=== PATIENT | male | born 1945 | race Caucasian/White ===

== ENCOUNTER 2017-06-05 16:12 | Emergency (ER) | payer OTHER ==
[2017-06-05 16:16] VITALS: BMI 23.7
--- NOTE | 2017-06-05 16:30 | DR.DIZZY ---
HPI - Time seen Time seen: 16:30 - PCP Primary Care Physician: CRISTOBAL - HPI Comment HPI Comment: Was fine 5 days ago per spouse, but 4 days ago pt woke up with dizziness, Pt with unsteady gait, confusion, dizziness. states pt confused , seems to understand commands but cannot perform. Pt denies somatic complaints. Since onset of symptoms pt will 'get a little better' and thought symptoms were resolving then they would worsen again. called PCP and was told to come to ER. Pt has had TIA previously per . - Complaint Chief Complaint:: SPOUSE STATES SUNDAY MORNING, PT. WOKE UP AND WAS DISORIENTED MORE THAN USUAL AND WAS UNABLE TO GET UP FROM THE BED. SHE ALSO STATES PT. HAS BEEN DIZZY AND HAS AN UNSTEADY GAIT. SHE SAYS "HE IS ABLE TO COMPHREND WHAT YOU SAY, BUT CAN'T DO IT." - Nurses Notes Reviewed Nurses Notes Review: Yes - Source History Provided: Patient - Mode of Arrival Mode of Arrival: Wheelchair - Timing Onset of Chief Complaint: 06/02/17 Came on: On Awakening Onset of Symptoms Start Date: 06/02/17 - Duration Duration: Since Onset How lon Duration: Days - Context Does pt take pot. toxic medication?: No History of: TIA (also hx dementia per ) Stroke Symptoms: Dizziness - Modifying factors Worsens: Nothing - Associated signs and symptoms Associated Signs and Symptoms: Other (dizziness, unsteady gait) PMH - PMH Past Medical History: Yes Past Medical History: Alzheimers, Arthritis, Dementia, Depression, GERD Past Medical History Comment: TIA Past Surgical History: Yes Surgical History: Abdominal Surgery, Cholecystectomy, Ortho Surgery, Other - Family History History of Family Medical Conditions: Yes Family Medical History: Cancer, Hypertension - Social History Does patient currently use any type of tobacco product: No Have you used tobacco products in the last 12 months: No Type of Tobacco Use: None Does any household member use tobacco: No Alcohol Use: None Do you use any recreational Drugs:: No Lives With: Spouse Lives Where: Home - infectious screening In the last 2 months have you had wt loss of >10#?: NO Have you had fever, night sweats or hemotysis?: No Have you traveled outside the country in the last 6 months?: No Isolation: Standard ROS - Review of Systems Eyes: No Symptoms Reported ENTM: No Symptoms Reported Respiratoy: No Symptoms Reported Cardiovascular: No Symptoms Reported Genitourinary: No Symptoms Reported Neurological: Dizziness, Problems Walking. negative: Headache Musculoskeletal: No Symptoms Reported Integumentary: No Symptoms Reported Hematologic/Lymphatic: No Symptoms Reported Endocrine: No Symptoms Reported Psychiatric: No Symptoms Reported All Other Systems: Reviewed and Negative Unable to Obtain Due To: Dementia ( gives much of hx) PE - Vital Signs Vitals: Temperature 103.1 F Pulse Rate [Left Brachial] 95 Pulse Rate [Standing] 104 Pulse Rate [Sitting] 96 Pulse Rate [Lying] 95 Pulse Rate 108 Respiratory Rate 16 Blood Pressure [Left Arm] 144/67 Blood Pressure [Right Arm] 153/73 Blood Pressure [Standing] 143/69 Blood Pressure [Sitting] 150/77 Blood Pressure [Lying] 138/66 Blood Pressure 138/71 O2 Sat by Pulse Oximetry 95 - General General Appearance: Alert, In No Apparent Distress, Other (not ill appearing) - Head Head Exam: Normal Inspection, Atraumatic, Normocephalic - Eyes Eye exam: Normal Appearance, PERRL, EOMI Pupils: Regular, Round: Bilateral - ENT ENT Exam: Normal Exam, Normal Oropharynx - Neck Neck Exam: Normal Inspection, Full ROM, Trachea Midline. negative: Tenderness, Meningismus, Lymphadenopathy, Thyromegaly - Chest Chest Inspection: Symmetric Chest Wall Rise - Respiratory Respiratory Exam: Normal Lung Sounds Bilat Respiratory Exam: Bilateral Clear to Auscultation - Cardiovascular Cardiovascular Exam: Regular Rate, Normal Rhythm, Normal Heart Sounds - Abdominal Exam Abdominal Exam: Normal Inspection, Normal Bowel Sounds, Soft. negative: Distention, Tenderness - Rectal Rectal Exam: Deferred - Extremeties Extremities Exam: Normal Inspection, Full ROM, Normal Capillary Refill. negative: Edema - Neurologic Neurological Exam: Alert, Oriented X3, Other (gait not tested due to unsteadiness) Patient Oriented To: Person, Place, Time Speech: Fluid Speech Cranial Nerve Exam: EOM Function (II, III, IV, ): Normal (pt slow to respond to commands, sometimes doesn't respond at all), Facial Sensation (V): Normal, Facial Palsy (VII): Normal, Gag reflex (XI): Normal, Tongue Deviation: Normal Motor Strength - LUE: 5/5 Motor Strength - RUE: 5/5 Motor Strength - LLE: 5/5 - Psychiatric Psychiatric Exam: Normal Affect, Normal Mood - Skin Skin Exam: Warm, Dry, Intact Course - Consultation Called: 16:45 Consultation Comments: Dr Burt will come in to see pt ROR - Labs Reviewed Laboratory Results Reviewed?: Yes (cardiacs normal, mild hyponatremia, hypokalemia, glucose 177. Lactate 2.4) Result Diagrams: 06/05/17 16:53 06/05/17 16:53 Laboratory: WBC 6.8 X10^3/uL (3.6-10.0) 06/05/17 16:53 RBC 4.58 X10^6/uL (4.7-6.0) L 06/05/17 16:53 Hgb 14.0 g/dL (13.5-18.0) 06/05/17 16:53 Hct 40.3 % (42.0-54.0) L 06/05/17 16:53 MCV 87.9 fL (80.0-100.0) 06/05/17 16:53 MCH 30.6 pg (27.0-34.0) 06/05/17 16:53 MCHC 34.8 g/dL (33.0-35.0) 06/05/17 16:53 RDW 13.7 % (11.6-16.5) 06/05/17 16:53 Plt Count 195 X10^3/uL (150.0-450.0) 06/05/17 16:53 MPV 7.5 fL (7.4-11.0) 06/05/17 16:53 Neut % (Auto) 86.3 % (42.0-75.0) H 06/05/17 16:53 Lymph % (Auto) 4.0 % (21.0-51.0) L 06/05/17 16:53 [place] % (Auto) 9.3 % (0.0-13.0) 06/05/17 16:53 Eos % (Auto) 0.1 % (0.9-2.9) L 06/05/17 16:53 Baso % (Auto) 0.3 % (0.2-1.0) 06/05/17 16:53 Neut # (Auto) 5.9 x10^3/uL (2.2-4.8) H 06/05/17 16:53 Lymph # (Auto) 0.3 X10^3/uL (1.3-2.9) L 06/05/17 16:53 [place] # (Auto) 0.6 x10^3/uL (0.3-0.8) 06/05/17 16:53 Eos # (Auto) 0.0 x10^3/uL (0.0-0.2) 06/05/17 16:53 Baso # (Auto) 0.0 X10^3/uL (0.0-0.1) 06/05/17 16:53 Absolute Nucleated RBC 0.0 /100WBC 06/05/17 16:53 Sodium 130 mmol/L (136-145) L 06/05/17 16:53 Corrected Sodium 132 mmol/L (136-145) L 06/05/17 16:53 Potassium 3.2 mmol/L (3.5-5.1) L 06/05/17 16:53 Chloride 93 mmol/L (98-107) L 06/05/17 16:53 Carbon Dioxide 25.8 mmol/L (21-32) 06/05/17 16:53 BUN 13 mg/dL (7-18) 06/05/17 16:53 Creatinine 1.35 mg/dL (0.70-1.30) H 06/05/17 16:53 Est GFR (MDRD) Af Amer > 60 (>60) 06/05/17 16:53 Est GFR (MDRD) Non-Af 55 (>60) L 06/05/17 16:53 Glucose 177 mg/dL (65-99) H 06/05/17 16:53 Lactic Acid 2.4 mmol/L (0.4-2.0) H 06/05/17 16:53 Calcium 8.5 mg/dL (8.5-10.1) 06/05/17 16:53 Corrected Calcium TNP 06/05/17 16:53 Magnesium 1.9 mg/dL (1.7-2.9) 06/05/17 16:53 Total Bilirubin 0.80 mg/dL (0.2-1.0) 06/05/17 16:53 AST 23 Units/L (15-37) 06/05/17 16:53 ALT 20 Units/L (12-78) 06/05/17 16:53 Alkaline Phosphatase 94 Units/L (46-116) 06/05/17 16:53 Ammonia < 10 umol/L (11-32) L 06/05/17 16:53 Creatine Kinase 86 Units/L (39-308) 06/05/17 16:53 CK-MB (CK-2) < 1.0 ng/mL (0-4.0) 06/05/17 16:53 CK/CKMB % Calc 1.2 % (<4) 06/05/17 16:53 Troponin I < 0.02 ng/mL (0-1.5) 06/05/17 16:53 Total Protein 7.7 g/dL (6.4-8.2) 06/05/17 16:53 Albumin 3.5 g/dL (3.4-5.0) 06/05/17 16:53 Globulin 4.2 g/dL (2.5-4.5) 06/05/17 16:53 Albumin/Globulin Ratio 0.8 Ratio (1.1-2.1) L 06/05/17 16:53 Acetone, Semi-Quant Negative (NEGATIVE) 06/05/17 16:53 - Other Results Comments: Lactate high at 2.4 but normal WBC at 6.8. NH3 pending. Acetone neg. UA pending(no sample) at this time. BCx drawn, pending. - XRAY XRAY Interpreted by: Radiologist XRAY Findings: CT head nothing acute - Diagnosis Discharge Problem: Weakness - Discharge Plan Disposition: XFER SHT-TRM HOSP Condition: Stable - Follow ups/Referrals Follow ups/Referrals: Elier Medina [Primary Care Provider] - 3 days - Instructions Additional Notes - Additional Notes Additional Notes: After his exam Dr Burt concerned re: indolent infection as etiology of pt's generalized psychomotor slowing. He suggests transfer to [facility] so that pt can get neurology services inpatient as well as MRI. He said LP could be done in [facility]. Pt's temp normal in triage, but spiked to 103.1 while in ER. Toradol and tylenol given. Spoke with Dr Cooley([facility] ) and reviewed presentation and workup; he accepts pt in transfer to ER there, okay to hang Zosyn prior to transfer there.
--- NOTE | 2017-06-05 16:59 | CT ---
HEAD CT WITHOUT IV CONTRAST CLINICAL INDICATION: Disorientation TECHNIQUE: Axial CT images from skull base to vertex without IV contrast.Dose reduction techniques in cluding Automated Exposure Control (AEC) and adjustment of mA and kV were utlized. COMPARISON: None FINDINGS: There is no abnormal brain parenchymal density. There is no evidence of acute infarction, intracrani al hemorrhage, mass or mass effect, or abnormal extra-axial collection. The density of the larger dur al venous sinuses is normal. The ventricles are normal in size, shape and position. The skull base an d calvarium are normal. The included paranasal sinuses and mastoid air cells are predominantly clear. IMPRESSION: 1. No acute intracranial abnormality. Reported By:
[2017-06-05 17:13] LABS: BASOPHILS % (AUTO) 0.3 % (0.2-1.0); EOSINOPHILS % (AUTO) 0.1 % (0.9-2.9); HEMATOCRIT 40.3 % (42.0-54.0); LYMPHOCYTES # (AUTO) 0.3 X10^3/uL (1.3-2.9); MEAN CORPUSCULAR HEMOGLOBIN 30.6 pg (27.0-34.0); MEAN CORPUSCULAR HGB CONC 34.8 g/dL (33.0-35.0); MEAN CORPUSCULAR VOLUME 87.9 fL (80.0-100.0); MEAN PLATELET VOLUME 7.5 fL (7.4-11.0); MONOCYTES # (AUTO) 0.6 x10^3/uL (0.3-0.8); MONOCYTES % (AUTO) 9.3 % (0.0-13.0); NEUTROPHILS # (AUTO) 5.9 x10^3/uL (2.2-4.8); NEUTROPHILS % (AUTO) 86.3 % (42.0-75.0); PLATELET COUNT 195 X10^3/uL (150.0-450.0); RED BLOOD COUNT 4.58 X10^6/uL (4.7-6.0); RED CELL DISTRIBUTION WIDTH 13.7 % (11.6-16.5); WHITE BLOOD COUNT 6.8 X10^3/uL (3.6-10.0)
[2017-06-05 17:19] LABS: SERUM ACETONE NEGATIVE (NEGATIVE)
[2017-06-05 17:27] LABS: BLOOD UREA NITROGEN 13 mg/dL (7-18); CALCIUM 8.5 mg/dL (8.5-10.1); CARBON DIOXIDE 25.8 mmol/L (21-32); CHLORIDE 93 mmol/L (98-107); COR NA(FOR HYPERGLY) 132 mmol/L (136-145); CREATININE 1.35 mg/dL (0.70-1.30); LACTIC ACID 2.4 mmol/L (0.4-2.0); SODIUM 130 mmol/L (136-145); TROPONIN I < 0.02 ng/mL (0-1.5); eGFR BLACK RACES > 60 (>60); eGFR NON BLACK RACES 55 (>60)
[2017-06-05 17:31] LABS: ALANINE AMINOTRANSFERASE 20 Units/L (12-78); ALBUMIN 3.5 g/dL (3.4-5.0); ALKALINE PHOSPHATASE 94 Units/L (46-116); ASPARTATE AMINO TRANSFERASE 23 Units/L (15-37); CKMB % 1.2 % (<4); CREATINE KINASE 86 Units/L (39-308); CREATINE KINASE MB < 1.0 ng/mL (0-4.0); MAGNESIUM 1.9 mg/dL (1.7-2.9); TOTAL PROTEIN 7.7 g/dL (6.4-8.2)
[2017-06-05] MEDS ORDERED: ZOSYN VIAL 3.375 GM 3.375 GM in NS 100 ML IV + SPIKE MINIBAG* 100 ML IV ONE (17:59)
[2017-06-05] MEDS ORDERED: NS 1000 ML 1,000 ML ONE (18:09)
[2017-06-05] MEDS ORDERED: TORADOL 15 MG VIAL IVP ONE (18:09)
[2017-06-05] MEDS ORDERED: TYLENOL 500 MG TAB EXTRA STRENGTH PO ONE ×2 (18:09→18:16)
[2017-06-05] MEDS ORDERED: ZOSYN VIAL 3.375 GM IV ONE (18:10)
[2017-06-05] MEDS ORDERED: NS 100 ML IV + SPIKE MINIBAG* 100 ML IV ONE (18:10)
[2017-06-05] MEDS ORDERED: TORADOL 15 MG VIAL ONE (18:12)
[2017-06-05 18:33] VITALS: BP 137/72
--- NOTE | 2017-06-05 18:43 | DR.CONSULT ---
Consult - Consultation for Day of: Date: 06/05/17 - Chief Complaint Chief Complaint: Lethargy, psychomotor slowing/altered mental status. - Allergies Allergies/Adverse Reactions: Allergies Allergy/AdvReac Type Severity Reaction Status Date / Time morphine Allergy Verified 06/05/17 16:17 - History of Present Illness History of Present Illness: 71-year-old male patient was seen and examined. Patient was brought by his with complaints of changes in his mental status , behavior. According to the patient does listen but she does not do what he is asked to do. He has markedly slowed down. This change in his behavior occurred when he woke up in the morning 4 days ago. Since then there has been no improvement in his condition. According to the when he woke up in the morning he was very slow to react. His face was flushed. He has been shivering since then. Patient has history of diabetes. He has been on metformin for several years. Patient is awake alert he is participating in verbal communication but his responses are delayed. He was unable to tell the year. He thought that it is 2016. He knows that he is in hospital in [place]. He was unable to tell the month. He couldn't tell the day of the week. He has marked bradyphrenia . He is not voicing any complaints. NEUROLOGICAL EXAMINATION : . Cognitive status: As described above. Speech: Speech is fluent, naming is intact, comprehension is also intact. Patient has no paraphasic errors. Cranial nerve examination : Second cranial nerve: Visual hannon are intact on confrontation. Third fourth and sixth cranial nerve: Extraocular movements are full without any nystagmus. Pupils are 3.5 mm in size around equal and reactive to light. Fifth cranial nerve: Facial sensations are intact bilaterally. Seventh cranial nerve: Facial symmetry is intact bilaterally. Eighth cranial nerve: Hearing is intact bilaterally. Ninth and 10th cranial nerve: Palate is symmetrical bilaterally. 11th cranial nerve: Shoulder shrug is equal and symmetrical bilaterally. 12 cranial nerve: Tongue is in midline. Coordination: Finger to nose rapid alternating movements are intact. Gait: was not tested. Motor system examination: Tone is normal. Strength is 5 over 5 proximally as well as distally in upper and lower extremities. Deep tendon reflexes are +1 equal and symmetrical in upper and lower extremities. Plantars are flexor bilaterally. Sensory system examination: Patient has equal and symmetrical touch, temperature , pinprick sensation distally and proximally in upper and lower extremities. - Past Medical History Past Medical History: Alzheimers, Arthritis, Dementia, Depression, GERD - Past Surgical History Surgical History: Abdominal Surgery, Cholecystectomy, Ortho Surgery, Other - Family History Family Medical History: Cancer, Hypertension - Social History Does patient currently use any type of tobacco product: No Have you used tobacco products in the last 12 months: No Type of Tobacco Use: None Does any household member use tobacco: No Alcohol Use: None - Medications Home Medications: Metformin HCl [GLUCOPHAGE 500 MG *] 500 mg PO BID 06/05/17 [History Confirmed ] Prednisone [PREDNISONE TAB 5 MG *] 5 mg PO DAILY 06/05/17 [History Confirmed ] - Review of Systems Constitutional: See HPI Eyes: No Symptoms Reported ENT: No Symptoms Reported Respiratory: No Symptoms Reported Cardiovascular: No Symptoms Reported Gastrointestinal: No Symptoms Reported Genitourinary: No Symptoms Reported Musculoskeletal: No Symptoms Reported Skin: No Symptoms Reported Neurological: See HPI - Physical Exam Vital Signs: Temperature 103.1 F Pulse Rate [Left Brachial] 95 Pulse Rate [Standing] 104 Pulse Rate [Sitting] 96 Pulse Rate [Lying] 95 Pulse Rate 108 Respiratory Rate 16 Blood Pressure [Left Arm] 144/67 Blood Pressure [Right Arm] 153/73 Blood Pressure [Standing] 143/69 Blood Pressure [Sitting] 150/77 Blood Pressure [Lying] 138/66 Blood Pressure 138/71 O2 Sat by Pulse Oximetry 95 Oriented: Normal Eyes: Normal Ear: Normal Nose: Normal Throat: Normal Respiratory: Clear Throughout Cardiovascular: Normal : Normal Auscultation: Bowel Sounds: Normal Palpation: Normal Tenderness: Normal Skin: Normal Musculoskeletal: Normal Psychiatric: Normal Mood Description: Calm Affect: Flat Speech Pattern: Clear - Plan Plan: 71-year-old male patient was seen and examined because of altered mental status, lethargy, marked psychomotor slowing. On examination patient has delayed responses. He is not very much oriented in details of time although he knows that he is in hospital in [place]. Patient's comprehension is intact, naming is intact. Speech is fluent. His cranial nerve examination shows no abnormality. Patient has no cerebellar signs. He has no sensorimotor deficits. According to the patient was normal last week before the onset of these symptoms. His symptoms occurred 4 day ago when he woke up one morning. His face was flushed. He has been shivering since then. He ate oysters night before the onset of symptoms. Patient's changes in his mental status need to be seen in terms of metabolic changes in the background of possible infection. He needs a detailed metabolic/infectious workup, neuroimaging studies with MRI, EEG and multi specialty consultations.
[2017-06-05] MEDS ORDERED: NS 1000 ML 1,000 ML IV SCH (19:00)
== END 2017-06-05 18:51 | disposition short-term general hospital (02) ==
LOC: ER 16:20
DX: R53.1 Weakness (principal); R42 Dizziness and giddiness; Z86.73 Personal history of transient ischemic attack (TIA), and cerebral infarction without residual deficits
CPT/HCPCS: 36415; 70450; 80053; 82009; 82140; 82550; 82553; 83605; 83735; 84484; 85025; 87040; 96365; 96374; 96375; 99285; A4222; J2543

== ENCOUNTER 2023-08-02 17:33 | Inpatient (IN) ==
--- NOTE | 2023-08-02 17:53 | EKG ---
Test Reason : dyspnea Blood Pressure : */* mmHG Vent. Rate : 105 BPM Atrial Rate : 105 BPM P-R Int : 178 ms QRS Dur : 86 ms QT Int : 308 ms P-R-T Axes : 6 -10 4 degrees QTc Int : 407 ms Sinus tachycardia Minimal voltage criteria for LVH, may be normal variant ( R in aVL ) Borderline ECG No previous ECGs available Confirmed by Vance Chambers MD ([id number]) on 08/03/2023 8:55:53 AM Referred By: Confirmed By: Vance Chambers MD
[2023-08-02] MEDS: NS 500 ML IV 500 ML IV SCH (17:57)
[2023-08-02] MEDS: DECADRON INJ IVP ONE (17:57)
[2023-08-02] MEDS: DUONEB 0.5 MG/3 MG (3 mL) NEB ONE ×2 (17:59→22:22)
[2023-08-02 18:05] VITALS: BMI 22.8
[2023-08-02 18:06] LABS: EOSINOPHILS # (AUTO) 0.3 x10^3/uL (0.0-0.2); HEMOGLOBIN 12.8 g/dL (13.5-18.0); RED CELL DISTRIBUTION WIDTH 13.8 % (11.6-16.5)
[2023-08-02 18:11] LABS: BASOPHILS # (AUTO) 0.1 X10^3/uL (0.0-0.1); BASOPHILS % (AUTO) 0.9 % (0.2-1.0); HEMATOCRIT 38.5 % (42.0-54.0); LYMPHOCYTES # (AUTO) 1.7 X10^3/uL (1.3-2.9); LYMPHOCYTES % (AUTO) 11.8 % (21.0-51.0); MEAN CORPUSCULAR HEMOGLOBIN 30.2 pg (27.0-34.0); MEAN CORPUSCULAR HGB CONC 33.4 g/dL (33.0-35.0); MEAN CORPUSCULAR VOLUME 90.6 fL (80.0-100.0); MEAN PLATELET VOLUME 8.8 fL (7.4-11.0); MONOCYTES # (AUTO) 0.9 x10^3/uL (0.3-0.8); MONOCYTES % (AUTO) 6.3 % (0.0-13.0); NEUTROPHILS # (AUTO) 11.4 x10^3/uL (2.2-4.8); PLATELET COUNT 330 X10^3/uL (150.0-450.0); RED BLOOD COUNT 4.24 X10^6/uL (4.7-6.0)
[2023-08-02] MEDS: ATIVAN INJ 2 MG VIAL IVP ONE (18:17)
--- NOTE | 2023-08-02 18:18 | DR.SOBA ---
HPI Time Seen Time Seen by Provider: 08/02/23 17:44 Complaints Chief Complaint Doctors Comments: 77-year-old male presents with coughing and shortness of breath. Has been coughing over the past week, steadily getting worse. Cough dry, not very productive. Shortness of breath with cough, difficulty stopping the cough. Having generalized weakness. No reported fevers, chills, sinus congestion, vomiting or diarrhea. No bowel or bladder issues. COVID-19 Coronavirus risk:travel/contact w/high risk person: No Has patient experienced Coronavirus symptoms: No Reviewed Nurses Notes Reviewed: Yes Source History Provided: Patient PMH PMH Past Medical History: Alzheimers, Arthritis, Dementia, Depression and GERD Past Surgical History: Yes Surgical History: Abdominal Surgery, Cholecystectomy, Ortho Surgery and Other Family History Family Medical History: Cancer and Hypertension Social History Do you use any recreational Drugs:: No Travel Risk Coronavirus risk:travel/contact w/high risk person: No Has patient experienced Coronavirus symptoms: No PE Vital Signs Vitals: Vital Signs Temperature 99.1 F Pulse Rate 99 Pulse Rate 102 Pulse Rate 103 Pulse Rate 102 Pulse Rate 114 Pulse Rate 114 Pulse Rate 100 Pulse Rate 105 Pulse Rate 107 Pulse Rate 106 Pulse Rate 105 Pulse Rate 106 Pulse Rate 106 Pulse Rate 105 Respiratory Rate 24 Blood Pressure 162/72 Blood Pressure 187/89 Blood Pressure 196/85 Blood Pressure 163/82 Blood Pressure 216/100 O2 Sat by Pulse Oximetry 100 O2 Sat by Pulse Oximetry 99 O2 Sat by Pulse Oximetry 100 O2 Sat by Pulse Oximetry 98 O2 Sat by Pulse Oximetry 89 O2 Sat by Pulse Oximetry 87 O2 Sat by Pulse Oximetry 98 O2 Sat by Pulse Oximetry 94 O2 Sat by Pulse Oximetry 93 O2 Sat by Pulse Oximetry 93 O2 Sat by Pulse Oximetry 92 O2 Sat by Pulse Oximetry 90 O2 Sat by Pulse Oximetry 89 O2 Sat by Pulse Oximetry 80 COURSE Treatment Treatment: 77-year-old male presents with respiratory distress. Has a frequent cough. Feeling short of breath while coughing. Difficulty giving a good history due to his cough. Been ill the past week with cough, steadily worsening.. Clinical exam shows rales at the right greater than left base. Concerning for CHF/versus pneumonia. No obvious peripheral edema or JVD evident.. Workup initiated. Patient given DuoNeb breathing treatment, IV Decadron, started IV fluids as a cautious rate due to the possibility of CHF. Patient appearring anxious, given IV Ativan to help relax him. Chest x-ray - quality film, rotated, does have increased markings bilaterally consistent with probable pneumonia, possible pulmonary vascular congestion as well. Patient was given dose of IV Lasix, as well as Rocephin. Placed on 50% Venti for the oxygen. Labs show elevated white count 19.6, lactic acid up at 2.9. BP eleva meche, slightly tachy. Fluids opened to give hydration. Repeat lactic better, 1.7. Will repeat a chest x-ray after our treatment, try to get a better film. Appears more likely pneumonia with degree of CHF. Recommend admission. Dr. Medina is of the patient, patient presented to Dr. Tellez, accepts the admission. Repeat x-ray more consistent with bilateral pneumonia, possible small pleural effusions. ROR Labs Reviewed Laboratory Results Reviewed?: Yes 08/02/23 17:50 08/02/23 17:50 Laboratory: WBC 17.0 X10^3/uL (3.6-10.0) H 08/02/23 17:50 RBC 4.24 X10^6/uL (4.7-6.0) L 08/02/23 17:50 Hgb 12.8 g/dL (13.5-18.0) L 08/02/23 17:50 Hct 38.5 % (42.0-54.0) L 08/02/23 17:50 MCV 90.6 fL (80.0-100.0) 08/02/23 17:50 MCH 30.2 pg (27.0-34.0) 08/02/23 17:50 MCHC 33.4 g/dL (33.0-35.0) 08/02/23 17:50 RDW 13.8 % (11.6-16.5) 08/02/23 17:50 Plt Count 330 X10^3/uL (150.0-450.0) 08/02/23 17:50 Plt Count Comment Adequate (ADEQUATE) 08/02/23 17:50 MPV 8.8 fL (7.4-11.0) 08/02/23 17:50 Neut % (Auto) 79.0 % (42.0-75.0) H 08/02/23 17:50 Lymph % (Auto) 11.8 % (21.0-51.0) L 08/02/23 17:50 [place] % (Auto) 6.3 % (0.0-13.0) 08/02/23 17:50 Eos % (Auto) 2.0 % (0.9-2.9) 08/02/23 17:50 Baso % (Auto) 0.9 % (0.2-1.0) 08/02/23 17:50 Neut # (Auto) 11.4 x10^3/uL (2.2-4.8) H 08/02/23 17:50 Lymph # (Auto) 1.7 X10^3/uL (1.3-2.9) 08/02/23 17:50 [place] # (Auto) 0.9 x10^3/uL (0.3-0.8) H 08/02/23 17:50 Eos # (Auto) 0.3 x10^3/uL (0.0-0.2) H 08/02/23 17:50 Baso # (Auto) 0.1 X10^3/uL (0.0-0.1) 08/02/23 17:50 Absolute Nucleated RBC 0.4 /100WBC 08/02/23 17:50 Plt Clumps, EDTA Rare 08/02/23 17:50 Plt Morphology Comment Normal (NORMAL) 08/02/23 17:50 RBC Morphology Normal (NORMAL) 08/02/23 17:50 Sodium 140 mmol/L (136-145) 08/02/23 17:50 Corrected Sodium 141 mmol/L (136-145) 08/02/23 17:50 Potassium 3.9 mmol/L (3.5-5.1) 08/02/23 17:50 Chloride 103 mmol/L (98-107) 08/02/23 17:50 Carbon Dioxide 27.3 mmol/L (21-32) 08/02/23 17:50 BUN 7 mg/dL (7-18) 08/02/23 17:50 Creatinine 1.15 mg/dL (0.70-1.30) 08/02/23 17:50 Est GFR (MDRD) Af Amer > 60 (>60) 08/02/23 17:50 Est GFR (MDRD) Non-Af > 60 (>60) 08/02/23 17:50 Glucose 148 mg/dL (65-99) H 08/02/23 17:50 Lactic Acid 1.4 mmol/L (0.4-2.0) 08/02/23 19:28 Calcium 9.3 mg/dL (8.5-10.1) 08/02/23 17:50 Corrected Calcium 10.0 mg/dL (8.5-10.1) 08/02/23 17:50 Total Bilirubin 0.70 mg/dL (0.2-1.0) 08/02/23 17:50 AST 38 Units/L (15-37) H 08/02/23 17:50 ALT 21 Units/L (12-78) 08/02/23 17:50 Alkaline Phosphatase 83 Units/L (46-116) 08/02/23 17:50 Creatine Kinase 176 Units/L (39-308) 08/02/23 17:50 Troponin I High Sens 8.8 ng/L (4.0-60.0) 08/02/23 17:50 B-Natriuretic Peptide 136 pg/mL (0-79) H 08/02/23 17:50 Total Protein 7.8 g/dL (6.4-8.2) 08/02/23 17:50 Albumin 3.1 g/dL (3.4-5.0) L 08/02/23 17:50 Globulin 4.7 g/dL (2.5-4.5) H 08/02/23 17:50 Albumin/Globulin Ratio 0.7 Ratio (1.1-2.1) L 08/02/23 17:50 Specimen Type Catherized urine 08/02/23 19:15 Urine Color Straw (YELLOW) 08/02/23 19:15 Urine Appearance Clear (CLEAR) 08/02/23 19:15 Urine pH 7.0 (5.0 - 8.0) 08/02/23 19:15 Ur Specific [place] 1.015 (1.000-1.030) 08/02/23 19:15 Urine Protein Negative (NEGATIVE) 08/02/23 19:15 Urine Glucose (UA) Negative (NEGATIVE) 08/02/23 19:15 Urine Ketones Negative (NEGATIVE) 08/02/23 19:15 Urine Blood 1+ (NEGATIVE) 08/02/23 19:15 Urine Nitrite Negative (NEGATIVE) 08/02/23 19:15 Urine Bilirubin Negative (NEGATIVE) 08/02/23 19:15 Urine Urobilinogen Normal (NORMAL) 08/02/23 19:15 Ur Leukocyte Esterase Negative (NEGATIVE) 08/02/23 19:15 Urine RBC 0-2 /HPF (0-3) 08/02/23 19:15 Urine WBC None seen /HPF (0-5) 08/02/23 19:15 Ur Squamous Epith Cells Rare /HPF (NEGATIVE) 08/02/23 19:15 Urine Bacteria Negative /HPF (NEGATIVE) 08/02/23 19:15 Ur Culture Indicated? No/not indicated 08/02/23 19:15 SARS-CoV-2 (PCR) Negative (NEGATIVE) 08/02/23 19:16 Influenza Type A (PCR) Negative (NEGATIVE) 08/02/23 19:16 Influenza Type B (PCR) Negative (NEGATIVE) 08/02/23 19:16 RSV (PCR) Negative (NEGATIVE) 08/02/23 19:16 EKG Rate: 105 [place]: Normal Rhythm: ST ST: Nonsp Opioid Opioid Risk Tool Age (Hammad box if 16-45): No History of Preadolescent Sexual Abuse: No Total: 0 Total Score Risk Category: Low Risk Copyright: [facility] predicting aberrant behaviors Discharge Plan Diagnosis Discharge Problem: Bilateral pneumonia Discharge Plan Patient Disposition: ADMITTED INPATIENT Condition: Stable Prescriptions: No Action hydrocodone-acetaminophen 10 MG/325 MG tablet 1 tab PO Q6H PRN (Reason: Pain) levothyroxine 25 MCG tablet 50 mcg PO DAILY lansoprazole 30 MG capsule,delayed release(DR/EC) 30 mg PO DAILY escitalopram oxalate [Lexapro] 20 MG tablet 20 mg PO DAILY clopidogrel [Plavix] 75 MG tablet 75 mg PO DAILY Qty: 30 3RF Rx Instructions: TAKE 1 TABLET BY MOUTH DAILY. pravastatin 40 MG tablet 40 mg PO HS Qty: 30 3RF Rx Instructions: TAKE 1 TABLET BY MOUTH AT BEDTIME. aspirin 325 MG tablet,delayed release (DR/EC) 325 mg PO DAILY Qty: 90 3RF Rx Instructions: TAKE 1 TABLET BY MOUTH DAILY. ondansetron HCl [Zofran] 8 mg Tablet 8 mg PO Q8H PRN (Reason: Nausea And Vomiting) meloxicam 15 mg tablet 15 mg PO DAILY Patient Comments: TAKE ONE TABLET BY MOUTH DAILY glipizide 5 mg tablet extended release 24 hr 2.5 mg PO DAILY Patient Comments: TAKE ONE TABLET BY MOUTH DAILY omeprazole 40 mg capsule,delayed release(DR/EC) 40 mg PO DAILY Patient Comments: TAKE 1 CAPSULE BY MOUTH 30 MINUTES BEFORE MORNING MEAL ONCE A DAY meclizine 25 mg tablet 25 mg PO DAILY Patient Comments: TAKE ONE TABLET BY MOUTH AT BEDTIME pregabalin [Lyrica] 200 mg Capsule 200 mg PO QID diclofenac sodium 1 % gel See Rx Instructions .ROUTE .COMPLEX Patient Comments: APPLY 1 GRAM TOPICALLY prn Rx Instructions: as needed donepezil 10 MG tablet 23 mg PO DAILY diazepam 2 mg tablet 2 mg PO TID MDD 3 PRN (Reason: for vertigo) Qty: 12 0RF Health Concerns: Post Hospitalization: new medications and changes needed to prevent readmission or further decline. Pt educated and given instructions on all concerns. Plan of Treatment: Continue with present treatment and follow up plan. Pt is to keep follow up appointment as instructed and take medications as ordered. Orders to Discharge Patient Discharge Orders: Transfer (Routine); Ordered 08/02/23 Ordered By: Brayden Boothe Follow ups/Referrals Follow ups/Referrals: Elier Medina [Primary Care Provider] - 3 days
[2023-08-02 18:19] LABS: ALANINE AMINOTRANSFERASE 21 Units/L (12-78); ALBUMIN 3.1 g/dL (3.4-5.0); ALKALINE PHOSPHATASE 83 Units/L (46-116); ASPARTATE AMINO TRANSFERASE 38 Units/L (15-37); BLOOD UREA NITROGEN 7 mg/dL (7-18); CALCIUM 9.3 mg/dL (8.5-10.1); CARBON DIOXIDE 27.3 mmol/L (21-32); CHLORIDE 103 mmol/L (98-107); COR NA(FOR HYPERGLY) 141 mmol/L (136-145); CREATINE KINASE 176 Units/L (39-308); CREATININE 1.15 mg/dL (0.70-1.30); GLUCOSE 148 mg/dL (65-99); POTASSIUM 3.9 mmol/L (3.5-5.1); SODIUM 140 mmol/L (136-145); TOTAL PROTEIN 7.8 g/dL (6.4-8.2); eGFR NON BLACK RACES > 60 (>60)
[2023-08-02 18:35] LABS: PLATELET MORPHOLOGY COMMENT NORMAL (NORMAL)
[2023-08-02] MEDS: ROCEPHIN VIAL 1 GRAM IVP ONE (18:47)
[2023-08-02] MEDS: LASIX IVP ONE (18:47)
[2023-08-02 19:23] LABS: BILIRUBIN,URINE NEGATIVE (NEGATIVE); BLOOD/HEMOGLOBIN,URINE 1+ (NEGATIVE); GLUCOSE, URINE NEGATIVE (NEGATIVE); KETONES,URINE NEGATIVE (NEGATIVE); LEUKOCYTE ESTERASE ,URINE NEGATIVE (NEGATIVE); NITRITES,URINE NEGATIVE (NEGATIVE); PROTEIN,URINE NEGATIVE (NEGATIVE); UROBILINOGEN,URINE NORMAL (NORMAL)
[2023-08-02 19:24] LABS: APPEARANCE,URINE CLEAR (CLEAR); COLOR,URINE STRAW (YELLOW)
[2023-08-02 19:31] LABS: BACTERIA,URINE NEGATIVE /HPF (NEGATIVE); RBC,URINE 0-2 /HPF (0-3); SQUAMOUS EPITHELIAL CELL,UR RARE /HPF (NEGATIVE)
[2023-08-02 20:32] LABS: ABG ALLEN TEST POS; ABG BASE EXCESS 2.8 mmol/L (-2.0-2.0); ABG HCO3 26.1 mmol/L (22-26)
[2023-08-02] MEDS ORDERED: CONSULT PHARMACY - POTASSIUM & MAGNESIUM XX SCH (22:19)
[2023-08-02] MEDS: ATIVAN INJ 2 MG VIAL ONE (22:22)
[2023-08-02] MEDS: D5 NS 1,000 ML IV 1,000 ML IV SCH (23:31)
[2023-08-03] MEDS: ROBITUSSIN DM PO PRN (04:23)
[2023-08-03 06:18] LABS: BASOPHILS % (AUTO) 0.5 % (0.2-1.0); HEMATOCRIT 34.8 % (42.0-54.0); HEMOGLOBIN 11.8 g/dL (13.5-18.0); LYMPHOCYTES # (AUTO) 0.3 X10^3/uL (1.3-2.9); LYMPHOCYTES % (AUTO) 6.8 % (21.0-51.0); MEAN CORPUSCULAR HEMOGLOBIN 30.7 pg (27.0-34.0); MEAN CORPUSCULAR VOLUME 90.2 fL (80.0-100.0); MEAN PLATELET VOLUME 8.8 fL (7.4-11.0); MONOCYTES # (AUTO) 0.2 x10^3/uL (0.3-0.8); MONOCYTES % (AUTO) 5.3 % (0.0-13.0); NEUTROPHILS # (AUTO) 4.1 x10^3/uL (2.2-4.8); NEUTROPHILS % (AUTO) 87.4 % (42.0-75.0); PLATELET COUNT 226 X10^3/uL (150.0-450.0); RED BLOOD COUNT 3.86 X10^6/uL (4.7-6.0); RED CELL DISTRIBUTION WIDTH 13.7 % (11.6-16.5); WHITE BLOOD COUNT 4.7 X10^3/uL (3.6-10.0)
[2023-08-03 06:24] LABS: ALANINE AMINOTRANSFERASE 15 Units/L (12-78); ALBUMIN 2.5 g/dL (3.4-5.0); ALKALINE PHOSPHATASE 62 Units/L (46-116); ASPARTATE AMINO TRANSFERASE 23 Units/L (15-37); BLOOD UREA NITROGEN 11 mg/dL (7-18); CALCIUM 8.7 mg/dL (8.5-10.1); CARBON DIOXIDE 28.8 mmol/L (21-32); CHLORIDE 104 mmol/L (98-107); COR CA(FOR HYPOALB) 9.9 mg/dL (8.5-10.1); COR NA(FOR HYPERGLY) 144 mmol/L (136-145); CREATININE 1.03 mg/dL (0.70-1.30); GLUCOSE 253 mg/dL (65-99); POTASSIUM 3.9 mmol/L (3.5-5.1); SODIUM 140 mmol/L (136-145); TOTAL PROTEIN 6.9 g/dL (6.4-8.2); eGFR NON BLACK RACES > 60 (>60)
--- NOTE | 2023-08-03 07:04 | RAD ---
EXAM: CHEST, 1 VIEW HISTORY: REPEATED EXAM PER ER DR REQUEST; COMPARISON: Prior study or studies were utilized for comparison during interpretation with the most relevant moe ed 08/02/2023 TECHNIQUE: CHEST, 1 VIEW FINDINGS: Chest: Lines and tubes: None Mediastinum: Cardiomegaly. Pulmonary vessels: There is pulmonary vascular congestion. Lung hannon: Patchy opacities are seen Pleura: No effusion. No pneumothorax. Bones and soft tissues: No acute osseous or soft tissue abnormality. IMPRESSION: 1. No significant change from 1-1/2 hours earlier THIS IS AN ELECTRONICALLY VERIFIED FINAL REPORT 08/03/2023 7:01 AM - Electronically signed by Kody Jose MD
--- NOTE | 2023-08-03 07:04 | RAD ---
EXAM: CHEST, 1 VIEW HISTORY: Cough x 1 week becoming severe the past 3 days. Patient ambulatory in trauma, anxious with continous coughing/choking complaining of SOB when he coughs; COMPARISON: No relevant prior studies were available for comparison at the time of interpretation. TECHNIQUE: CHEST, 1 VIEW FINDINGS: Chest: Lines and tubes: None Mediastinum: Cardiomegaly. Pulmonary vessels: There is pulmonary vascular congestion. Lung hannon: Patchy opacities are seen Pleura: No effusion. No pneumothorax. Bones and soft tissues: No acute osseous or soft tissue abnormality. IMPRESSION: 1. Heart failure versus pneumonia THIS IS AN ELECTRONICALLY VERIFIED FINAL REPORT 08/03/2023 7:01 AM - Electronically signed by Kody Jose MD
[2023-08-03] MEDS: ROCEPHIN VIAL 1 GRAM 1 G in NS 100 ML IV 100 ML IV SCH (08:17)
[2023-08-03] MEDS ORDERED: NORCO 10/325 TAB PO PRN (08:43)
[2023-08-03] MEDS: NS 100 ML IV 100 ML ONE (08:44)
[2023-08-03] MEDS: DUONEB 0.5 MG/3 MG (3 mL) NEB SCH (08:51)
[2023-08-03] MEDS ORDERED: ROCEPHIN VIAL 1 GRAM IV SCH (09:00)
[2023-08-03] MEDS ORDERED: DUONEB 0.5 MG/3 MG (3 mL) NEB SCH (09:00)
[2023-08-03] MEDS: LYRICA CAP 150 mg PO PRN (09:34)
[2023-08-03] MEDS: ECOTRIN TAB 325 MG PO SCH (09:36)
[2023-08-03] MEDS: PLAVIX PO SCH (09:36)
[2023-08-03] MEDS: PREVACID PO SCH (09:36)
[2023-08-03] MEDS: TESSALON PERLES PO SCH (10:18)
[2023-08-03] MEDS: ZITHROMAX INJ 500 MG VIAL 500 MG in D5W 250 ML IV 250 ML IV SCH (10:23)
[2023-08-03] MEDS: LOVENOX INJ 40 MG SYR SC SCH (10:59)
[2023-08-03] MEDS: PRAVACHOL PO SCH (21:09)
[2023-08-03] MEDS: TUSSIONEX PENNKINETIC SUSP PO PRN (22:37)
--- NOTE | 2023-08-03 23:17 | DR.H&P ---
H&P History & Physical for Day of: H&P Date: 08/03/23 Chief Complaint Chief Complaint: Cough Shortness of breath weakness Allergies Allergies Allergy/AdvReac Type Severity Reaction Status Date / Time morphine Allergy Verified 06/05/17 16:17 lorazepam [From Ativan] AdvReac Verified 08/03/23 01:27 History of Present Illness History of Present Illness: Patient is a 77-year-old male presenting with cough, shortness of breath, and generalized weakness for the past week. He reports that symptoms have been gradually getting worse. Labs/imaging: WBC 17>4.7, he moglobin 11.8, platelets 226, sodium 140, potassium 3.9, creatinine 1.03, glucose 253, ABG: pH 7.48, pCO2 35, pO2 73, HCO3 26, O2 sat 96% on FiO2 50%. Lactic acid 2.9>1.4, BNP 136, troponin negative, UA negative, COVID/flu/RSV negative, AIT pending. Chest x-ray was obtained that showed pulmonary vascular congestion and patchy lung opacities. Patient was admitted for pneumonia. He is currently requiring supplemental oxygen and is on a Venturi mask of FiO2 50%. Will wean as tolerated. Currently receiving IV fluids of D5 normal saline at 80 mL/h. He is also receiving IV antibiotics Rocephin. Will add azithromycin. Will also order an echocardiogram. Order Tussionex as needed as well as Tessalon Perles. Restart home medications. Continue closely monitor and follow-up labs/imaging. Past Medical History Past Medical History: Alzheimers, Arthritis, Dementia, Depression and GERD Past Surgical History Surgical History: Appendectomy and Cholecystectomy Family History Family Medical History: Hypertension Social History Does patient currently use any type of tobacco product: No Have you used tobacco products in the last 12 months: No Type of Tobacco Use: None Does any household member use tobacco: No Alcohol Use: None Drug Use: None Medications Home Medications: Home Medications Medication Instructions Recorded Confirmed Type aspirin 325 mg tablet,delayed 325 mg PO QDAY 08/02/23 08/02/23 History release benzonatate 200 mg capsule 200 mg PO TID PRN cough 08/02/23 08/02/23 History clopidogrel 75 mg tablet 75 mg PO QDAY 08/02/23 08/02/23 History diphenoxylate-atropine 2.5 1 tab PO BID 08/02/23 08/02/23 History mg-0.025 mg tablet escitalopram oxalate 20 mg tablet 20 mg PO QDAY 08/02/23 08/02/23 History hydrocodone 10 mg-acetaminophen 1 tab PO QID 08/02/23 08/02/23 History 325 mg tablet lansoprazole 30 mg capsule,delayed 30 mg PO BID 08/02/23 08/02/23 History release levofloxacin 750 mg tablet 750 mg PO QDAY 08/02/23 08/02/23 History pravastatin 40 mg tablet 40 mg PO QPM 08/02/23 08/02/23 History pregabalin 300 mg capsule 300 mg PO QID 08/02/23 08/02/23 History Labs 08/03/23 05:54 08/03/23 05:54 Labs: 08/02/23 18:01 Sputum - Expectorated Sputum Sputum Culture - Preliminary 08/02/23 18:01 Sputum - Expectorated Sputum - Final Laboratory WBC 4.7 X10^3/uL (3.6-10.0) D 08/03/23 05:54 RBC 3.86 X10^6/uL (4.7-6.0) L 08/03/23 05:54 Hgb 11.8 g/dL (13.5-18.0) L 08/03/23 05:54 Hct 34.8 % (42.0-54.0) L 08/03/23 05:54 MCV 90.2 fL (80.0-100.0) 08/03/23 05:54 MCH 30.7 pg (27.0-34.0) 08/03/23 05:54 MCHC 34.0 g/dL (33.0-35.0) 08/03/23 05:54 RDW 13.7 % (11.6-16.5) 08/03/23 05:54 Plt Count 226 X10^3/uL (150.0-450.0) 08/03/23 05:54 Plt Count Comment Adequate (ADEQUATE) 08/02/23 17:50 MPV 8.8 fL (7.4-11.0) 08/03/23 05:54 Neut % (Auto) 87.4 % (42.0-75.0) H 08/03/23 05:54 Lymph % (Auto) 6.8 % (21.0-51.0) L 08/03/23 05:54 [place] % (Auto) 5.3 % (0.0-13.0) 08/03/23 05:54 Eos % (Auto) 0.0 % (0.9-2.9) L 08/03/23 05:54 Baso % (Auto) 0.5 % (0.2-1.0) 08/03/23 05:54 Neut # (Auto) 4.1 x10^3/uL (2.2-4.8) 08/03/23 05:54 Lymph # (Auto) 0.3 X10^3/uL (1.3-2.9) L 08/03/23 05:54 [place] # (Auto) 0.2 x10^3/uL (0.3-0.8) L 08/03/23 05:54 Eos # (Auto) 0.0 x10^3/uL (0.0-0.2) 08/03/23 05:54 Baso # (Auto) 0.0 X10^3/uL (0.0-0.1) 08/03/23 05:54 Absolute Nucleated RBC 0.0 /100WBC 08/03/23 05:54 Plt Clumps, EDTA Rare 08/02/23 17:50 Plt Morphology Comment Normal (NORMAL) 08/02/23 17:50 RBC Morphology Normal (NORMAL) 08/02/23 17:50 Sample Site Lr 08/02/23 20:27 ABG pH 7.480 (7.35-7.45) H 08/02/23 20:27 ABG pCO2 35.0 mmHg (35.0-45.0) 08/02/23 20:27 ABG pO2 73.0 mmHg (80.0-100.0) L 08/02/23 20:27 ABG HCO3 26.1 mmol/L (22-26) H 08/02/23 20:27 ABG O2 Saturation 96.0 % (90-100) 08/02/23 20: ABG Base Excess 2.8 mmol/L (-2.0-2.0) H 08/02/23 20:27 Mark Test Pos 08/02/23 20:27 A-a Gradient 240.0 mmHg 08/02/23 20:27 FiO2 50.0 08/02/23 20:27 Blood Gas Comments Taisha well ae 08/02/23 20:27 Sodium 140 mmol/L (136-145) 08/03/23 05:54 Corrected Sodium 144 mmol/L (136-145) 08/03/23 05:54 Potassium 3.9 mmol/L (3.5-5.1) 08/03/23 05:54 Chloride 104 mmol/L (98-107) 08/03/23 05:54 Carbon Dioxide 28.8 mmol/L (21-32) 08/03/23 05:54 BUN 11 mg/dL (7-18) 08/03/23 05:54 Creatinine 1.03 mg/dL (0.70-1.30) 08/03/23 05:54 Est GFR (MDRD) Af Amer > 60 (>60) 08/03/23 05:54 Est GFR (MDRD) Non-Af > 60 (>60) 08/03/23 05:54 Glucose 253 mg/dL (65-99) H 08/03/23 05:54 POC Glucose (mg/dL) 202 mg/dL (65-99) H 08/03/23 19:26 Lactic Acid 1.4 mmol/L (0.4-2.0) 08/02/23 19:28 Calcium 8.7 mg/dL (8.5-10.1) 08/03/23 05:54 Corrected Calcium 9.9 mg/dL (8.5-10.1) 08/03/23 05:54 Total Bilirubin 0.70 mg/dL (0.2-1.0) 08/03/23 05:54 AST 23 Units/L (15-37) 08/03/23 05:54 ALT 15 Units/L (12-78) 08/03/23 05:54 Alkaline Phosphatase 62 Units/L (46-116) 08/03/23 05:54 Creatine Kinase 176 Units/L (39-308) 08/02/23 17:50 Troponin I High Sens 8.8 ng/L (4.0-60.0) 08/02/23 17:50 B-Natriuretic Peptide 136 pg/mL (0-79) H 08/02/23 17:50 Total Protein 6.9 g/dL (6.4-8.2) 08/03/23 05:54 Albumin 2.5 g/dL (3.4-5.0) L 08/03/23 05:54 Globulin 4.4 g/dL (2.5-4.5) 08/03/23 05:54 Albumin/Globulin Ratio 0.6 Ratio (1.1-2.1) L 08/03/23 05:54 Specimen Type Catherized urine 08/02/23 19:15 Urine Color Straw (YELLOW) 08/02/23 19:15 Urine Appearance Clear (CLEAR) 08/02/23 19:15 Urine pH 7.0 (5.0 - 8.0) 08/02/23 19:15 Ur Specific [place] 1.015 (1.000-1.030) 08/02/23 19:15 Urine Protein Negative (NEGATIVE) 08/02/23 19:15 Urine Glucose (UA) Negative (NEGATIVE) 08/02/23 19:15 Urine Ketones Negative (NEGATIVE) 08/02/23 19:15 Urine Blood 1+ (NEGATIVE) 08/02/23 19:15 Urine Nitrite Negative (NEGATIVE) 08/02/23 19:15 Urine Bilirubin Negative (NEGATIVE) 08/02/23 19:15 Urine Urobilinogen Normal (NORMAL) 08/02/23 19:15 Ur Leukocyte Esterase Negative (NEGATIVE) 08/02/23 19:15 Urine RBC 0-2 /HPF (0-3) 08/02/23 19:15 Urine WBC None seen /HPF (0-5) 08/02/23 19:15 Ur Squamous Epith Cells Rare /HPF (NEGATIVE) 08/02/23 19:15 Urine Bacteria Negative /HPF (NEGATIVE) 08/02/23 19:15 Ur Culture Indicated? No/not indicated 08/02/23 19:15 SARS-CoV-2 (PCR) Negative (NEGATIVE) 08/02/23 19:16 Influenza Type A (PCR) Negative (NEGATIVE) 08/02/23 19:16 Influenza Type B (PCR) Negative (NEGATIVE) 08/02/23 19:16 RSV (PCR) Negative (NEGATIVE) 08/02/23 19:16 Review of Systems Constitutional: Weakness Eyes: No Symptoms Reported ENT: No Symptoms Reported Respiratory: Cough and Shortness of Breath Cardiovascular: No Symptoms Reported Gastrointestinal: No Symptoms Reported Genitourinary: No Symptoms Reported Musculoskeletal: No Symptoms Reported Skin: No Symptoms Reported Neurological: No Symptoms Reported Physical Exam Vital Signs: Vital Signs Temperature 97.7 F Temperature 97.2 F Pulse Rate [Right Brachial] 85 Pulse Rate [Right Brachial] 86 Pulse Rate 86 Respiratory Rate 18 Respiratory Rate 20 Blood Pressure [Right Arm] 141/63 Blood Pressure [Right Arm] 117/55 O2 Sat by Pulse Oximetry 94 O2 Sat by Pulse Oximetry 96 O2 Sat by Pulse Oximetry 100 Oriented: Normal Eyes: Normal Ear: Normal Nose: Normal Throat: Normal Respiratory: Diminished Throughout and Rhonchi Throughout Cardiovascular: Normal : Normal Auscultation: Bowel Sounds: Normal Palpation: Normal Tenderness: Normal Skin: Normal Musculoskeletal: Normal Psychiatric: Normal Mood Description: Calm and Appropriate Affect: Normal Speech Pattern: Clear and Appropriate Assessment/Plan (1) Bilateral pneumonia: Status: Acute Plan: IV abx (2) CHF exacerbation: Status: Acute Plan: order echo Review H&P Reviewed: Yes Patient was examined?: Yes
[2023-08-03] MEDS ORDERED: MORPHINE SULFATE INJ 2 MG INJ IVP PRN (23:39)
[2023-08-04 06:19] LABS: BASOPHILS # (AUTO) 0.1 X10^3/uL (0.0-0.1); BASOPHILS % (AUTO) 0.9 % (0.2-1.0); EOSINOPHILS # (AUTO) 0.2 x10^3/uL (0.0-0.2); EOSINOPHILS % (AUTO) 2.7 % (0.9-2.9); HEMATOCRIT 30.4 % (42.0-54.0); HEMOGLOBIN 10.4 g/dL (13.5-18.0); LYMPHOCYTES # (AUTO) 0.5 X10^3/uL (1.3-2.9); LYMPHOCYTES % (AUTO) 8.1 % (21.0-51.0); MEAN CORPUSCULAR HEMOGLOBIN 30.8 pg (27.0-34.0); MEAN CORPUSCULAR HGB CONC 34.3 g/dL (33.0-35.0); MEAN CORPUSCULAR VOLUME 89.8 fL (80.0-100.0); MEAN PLATELET VOLUME 8.8 fL (7.4-11.0); MONOCYTES # (AUTO) 0.4 x10^3/uL (0.3-0.8); NEUTROPHILS # (AUTO) 5.3 x10^3/uL (2.2-4.8); NEUTROPHILS % (AUTO) 82.3 % (42.0-75.0); PLATELET COUNT 215 X10^3/uL (150.0-450.0); RED BLOOD COUNT 3.38 X10^6/uL (4.7-6.0); WHITE BLOOD COUNT 6.4 X10^3/uL (3.6-10.0)
[2023-08-04 06:39] LABS: ALANINE AMINOTRANSFERASE 16 Units/L (12-78); ALBUMIN 2.2 g/dL (3.4-5.0); ALKALINE PHOSPHATASE 57 Units/L (46-116); ASPARTATE AMINO TRANSFERASE 23 Units/L (15-37); BLOOD UREA NITROGEN 11 mg/dL (7-18); CALCIUM 8.1 mg/dL (8.5-10.1); CARBON DIOXIDE 28.1 mmol/L (21-32); CHLORIDE 106 mmol/L (98-107); COR CA(FOR HYPOALB) 9.5 mg/dL (8.5-10.1); COR NA(FOR HYPERGLY) 142 mmol/L (136-145); CREATININE 0.83 mg/dL (0.70-1.30); GLUCOSE 142 mg/dL (65-99); POTASSIUM 3.3 mmol/L (3.5-5.1); SODIUM 141 mmol/L (136-145); TOTAL PROTEIN 6.1 g/dL (6.4-8.2); eGFR NON BLACK RACES > 60 (>60)
--- NOTE | 2023-08-04 07:01 | RAD ---
EXAM:AP chestHISTORY:PneumoniaCOMPARISON: 024FINDINGS:Heart size continues normal. There are patchy and linear pulmonary infiltrates again noted in both lungs without evidence for additional consolidation, complicating extrapulmonary air or large pleural effusion.IMPRESSION:No significant change. The described pulmonary findings are consistent with pneumonia, less likely perivascular edema.THIS IS AN ELECTRONICALLY VERIFIED FINAL REPORT08/04/2023 6:57 AM - Electronically signed by Vincent Olivares MD
[2023-08-04] MEDS ORDERED: ZITHROMAX INJ 500 MG VIAL IV ONE (08:18)
[2023-08-04] MEDS: ROBITUSSIN DM PO SCH (09:07)
[2023-08-04] MEDS: SOLU-Medrol 40 MG VIAL IVP SCH (09:08)
[2023-08-05 05:43] LABS: BASOPHILS % (AUTO) 0.3 % (0.2-1.0); EOSINOPHILS # (AUTO) 0.1 x10^3/uL (0.0-0.2); HEMATOCRIT 32.3 % (42.0-54.0); HEMOGLOBIN 10.8 g/dL (13.5-18.0); LYMPHOCYTES # (AUTO) 0.3 X10^3/uL (1.3-2.9); LYMPHOCYTES % (AUTO) 4.8 % (21.0-51.0); MEAN CORPUSCULAR HEMOGLOBIN 30.2 pg (27.0-34.0); MEAN CORPUSCULAR HGB CONC 33.3 g/dL (33.0-35.0); MEAN CORPUSCULAR VOLUME 90.5 fL (80.0-100.0); MEAN PLATELET VOLUME 8.4 fL (7.4-11.0); MONOCYTES # (AUTO) 0.3 x10^3/uL (0.3-0.8); MONOCYTES % (AUTO) 5.1 % (0.0-13.0); NEUTROPHILS # (AUTO) 5.5 x10^3/uL (2.2-4.8); NEUTROPHILS % (AUTO) 87.8 % (42.0-75.0); PLATELET COUNT 234 X10^3/uL (150.0-450.0); RED BLOOD COUNT 3.57 X10^6/uL (4.7-6.0); RED CELL DISTRIBUTION WIDTH 13.9 % (11.6-16.5); WHITE BLOOD COUNT 6.3 X10^3/uL (3.6-10.0)
[2023-08-05 05:57] LABS: ALANINE AMINOTRANSFERASE 18 Units/L (12-78); ALBUMIN 2.4 g/dL (3.4-5.0); ALKALINE PHOSPHATASE 60 Units/L (46-116); ASPARTATE AMINO TRANSFERASE 24 Units/L (15-37); BLOOD UREA NITROGEN 10 mg/dL (7-18); CALCIUM 8.8 mg/dL (8.5-10.1); CARBON DIOXIDE 30.5 mmol/L (21-32); CHLORIDE 105 mmol/L (98-107); COR CA(FOR HYPOALB) 10.1 mg/dL (8.5-10.1); COR NA(FOR HYPERGLY) 144 mmol/L (136-145); CREATININE 0.84 mg/dL (0.70-1.30); GLUCOSE 141 mg/dL (65-99); POTASSIUM 3.7 mmol/L (3.5-5.1); SODIUM 143 mmol/L (136-145); TOTAL PROTEIN 6.6 g/dL (6.4-8.2); eGFR NON BLACK RACES > 60 (>60)
[2023-08-05] MEDS ORDERED: CONSULT PHARMACY - POTASSIUM & MAGNESIUM XX SCH (07:00)
[2023-08-05] MEDS: K-DUR TAB 20 MEQ PO SCH (08:22)
[2023-08-05] MEDS: LASIX IVP ONE (11:21)
[2023-08-05] MEDS: PEPCID 20 MG VIAL IVP ONE (11:22)
[2023-08-05] MEDS: CARAFATE ORAL SUSP PO SCH (11:22)
[2023-08-05] MEDS ORDERED: PROTONIX INJ 40 MG VIAL IVP SCH (13:00)
[2023-08-06 06:23] LABS: BASOPHILS % (AUTO) 0.4 % (0.2-1.0); EOSINOPHILS # (AUTO) 0.2 x10^3/uL (0.0-0.2); HEMATOCRIT 32.2 % (42.0-54.0); HEMOGLOBIN 10.8 g/dL (13.5-18.0); LYMPHOCYTES # (AUTO) 0.4 X10^3/uL (1.3-2.9); LYMPHOCYTES % (AUTO) 7.2 % (21.0-51.0); MEAN CORPUSCULAR HEMOGLOBIN 30.5 pg (27.0-34.0); MEAN CORPUSCULAR HGB CONC 33.7 g/dL (33.0-35.0); MEAN CORPUSCULAR VOLUME 90.4 fL (80.0-100.0); MEAN PLATELET VOLUME 8.5 fL (7.4-11.0); MONOCYTES # (AUTO) 0.3 x10^3/uL (0.3-0.8); MONOCYTES % (AUTO) 4.8 % (0.0-13.0); NEUTROPHILS # (AUTO) 5.1 x10^3/uL (2.2-4.8); NEUTROPHILS % (AUTO) 84.6 % (42.0-75.0); PLATELET COUNT 243 X10^3/uL (150.0-450.0); RED BLOOD COUNT 3.56 X10^6/uL (4.7-6.0); RED CELL DISTRIBUTION WIDTH 13.7 % (11.6-16.5); WHITE BLOOD COUNT 6.1 X10^3/uL (3.6-10.0)
--- NOTE | 2023-08-06 06:24 | RAD ---
EXAM: One-view chest HISTORY: Bilateral pneumonia COMPARISON: 08/04/2023 and multiple priors FINDINGS: Heart size is normal. Denise are normal. Aorta is ectatic in the arch may be dilated. Chest CT wit h contrast would be of further diagnostic value in assessing the aortic arch. There is improvement i n the patchy bilateral infiltrates being followed. The right lung appears clear. Some residual infi ltrates remain in the left upper and left lower lobes. No pleural effusions are identified. Bony th orax is unremarkable. IMPRESSION: Improving bilateral infiltrates Ectatic and possibly dilated aortic arch which could be better evaluated with CT chest with contrast THIS IS AN ELECTRONICALLY VERIFIED FINAL REPORT 08/06/2023 6:11 AM - Electronically signed by Mikey Maurer MD
[2023-08-06 06:37] LABS: ALANINE AMINOTRANSFERASE 21 Units/L (12-78); ALBUMIN 2.4 g/dL (3.4-5.0); ALKALINE PHOSPHATASE 67 Units/L (46-116); ASPARTATE AMINO TRANSFERASE 22 Units/L (15-37); BLOOD UREA NITROGEN 10 mg/dL (7-18); CALCIUM 8.7 mg/dL (8.5-10.1); CARBON DIOXIDE 33.2 mmol/L (21-32); CHLORIDE 103 mmol/L (98-107); COR NA(FOR HYPERGLY) 142 mmol/L (136-145); CREATININE 0.83 mg/dL (0.70-1.30); GLUCOSE 119 mg/dL (65-99); POTASSIUM 3.7 mmol/L (3.5-5.1); SODIUM 142 mmol/L (136-145); TOTAL PROTEIN 6.6 g/dL (6.4-8.2); eGFR NON BLACK RACES > 60 (>60)
[2023-08-06] MEDS ORDERED: CONSULT PHARMACY - POTASSIUM & MAGNESIUM XX SCH (07:00)
[2023-08-06] MEDS: D5 NS + KCL 20 MEQ/L 1,000 ML IV SCH (08:34)
--- NOTE | 2023-08-06 11:12 | PCM.PROG ---
Progress Note Progress Note for Day of Date of Exam: 08/06/23 Subjective Subjective: Patient seen at bedside, no acute events overnight. He states he feels worse today, coughing up more. He is currently on 4L NC. He is admitted for bilateral pneumonia. He is on IV antibiotics and steroids. He also received one dose of IV lasix for possible pulmonary edema. He has been ambulating to the bathroom. Labs/imaging reviewed -WBC 6.1 Hgb 10.8 K:3.7 -AIT: negative -CXR: improving b/l infiltrates. Dilated aortic arch, recommend CT-chest w/contrast -Sputum Cx: neg -Blood Cx: neg -ECHO pending Plan: Wean O2 as tolerated, continue IV antibiotics and bronchodilators. Will add pulmicort, continue cough medications. Will order CT-chest to evaluate further. Stop IVF. Follow echo results. Continue home medications. Replace electrolytes prn. Monitor AM labs/imaging. Past Medical Family Social History Allergies: Allergies morphine Allergy (Verified 06/05/17 16:17) lorazepam [From Ativan] Adverse Reaction (Verified 08/03/23 01:27) Vital Signs and I&O's Vital Signs: Vital Signs Temperature 97.5 F Pulse Rate [Left Brachial] 64 Pulse Rate [Right Brachial] 64 Pulse Rate 82 Respiratory Rate 20 Blood Pressure [Left Arm] 158/70 O2 Sat by Pulse Oximetry 91 O2 Sat by Pulse Oximetry 100 Intake and Output: Intake & Output 08/03/23 08/04/23 08/05/23 08/06/23 23:59 23:59 23:59 23:59 Intake Total 2254 / 2254 1563 / 1563 1897 / 1897 559 / 559 Output Total 1220 / 1220 Balance 1034 / 1034 1563 / 1563 1897 / 1897 559 / 559 Physical Exam Oriented: Normal Eyes: Normal Ear: Normal Nose: Normal Throat: Normal Respiratory: Generalized, Diminished and Rhonchi Cardiovascular: Normal Auscultation: Bowel Sounds: Normal Tenderness: Normal Skin: Normal Musculoskeletal: Normal Psychiatric: Normal Mood Description: Calm and Appropriate Affect: Normal Speech Pattern: Clear and Appropriate Laboratory and Diagnostics 08/06/23 05:43 08/06/23 05:43 Labs: 08/02/23 18:01 Sputum - Expectorated Sputum Sputum Culture - Final 08/02/23 18:01 Sputum - Expectorated Sputum - Final 08/02/23 17:50 Blood Blood Culture - Preliminary 08/02/23 18:20 Blood Blood Culture - Preliminary Laboratory WBC 6.1 X10^3/uL (3.6-10.0) 08/06/23 05:43 RBC 3.56 X10^6/uL (4.7-6.0) L 08/06/23 05:43 Hgb 10.8 g/dL (13.5-18.0) L 08/06/23 05:43 Hct 32.2 % (42.0-54.0) L 08/06/23 05:43 MCV 90.4 fL (80.0-100.0) 08/06/23 05:43 MCH 30.5 pg (27.0-34.0) 08/06/23 05:43 MCHC 33.7 g/dL (33.0-35.0) 08/06/23 05:43 RDW 13.7 % (11.6-16.5) 08/06/23 05:43 Plt Count 243 X10^3/uL (150.0-450.0) 08/06/23 05:43 Plt Count Comment Adequate (ADEQUATE) 08/02/23 17:50 MPV 8.5 fL (7.4-11.0) 08/06/23 05:43 Neut % (Auto) 84.6 % (42.0-75.0) H 08/06/23 05:43 Lymph % (Auto) 7.2 % (21.0-51.0) L 08/06/23 05:43 [place] % (Auto) 4.8 % (0.0-13.0) 08/06/23 05:43 Eos % (Auto) 3.0 % (0.9-2.9) H 08/06/23 05:43 Baso % (Auto) 0.4 % (0.2-1.0) 08/06/23 05:43 Neut # (Auto) 5.1 x10^3/uL (2.2-4.8) H 08/06/23 05:43 Lymph # (Auto) 0.4 X10^3/uL (1.3-2.9) L 08/06/23 05:43 [place] # (Auto) 0.3 x10^3/uL (0.3-0.8) 08/06/23 05:43 Eos # (Auto) 0.2 x10^3/uL (0.0-0.2) 08/06/23 05:43 Baso # (Auto) 0.0 X10^3/uL (0.0-0.1) 08/06/23 05:43 Absolute Nucleated RBC 0.1 /100WBC 08/06/23 05:43 Plt Clumps, EDTA Rare 08/02/23 17:50 Plt Morphology Comment Normal (NORMAL) 08/02/23 17:50 RBC Morphology Normal (NORMAL) 08/02/23 17:50 Sample Site Lr 08/02/23 20:27 ABG pH 7.480 (7.35-7.45) H 08/02/23 20:27 ABG pCO2 35.0 mmHg (35.0-45.0) 08/02/23 20:27 ABG pO2 73.0 mmHg (80.0-100.0) L 08/02/23 20:27 ABG HCO3 26.1 mmol/L (22-26) H 08/02/23 20:27 ABG O2 Saturation 96.0 % (90-100) 08/02/23 20:27 ABG Base Excess 2.8 mmol/L (-2.0-2.0) H 08/02/23 20:27 Mark Test Pos 08/02/23 20:27 A-a Gradient 240.0 mmHg 08/02/23 20:27 FiO2 50.0 08/02/23 20:27 Blood Gas Comments Taisha well ae 08/02/23 20:27 Sodium 142 mmol/L (136-145) 08/06/23 05:43 Corrected Sodium 142 mmol/L (136-145) 08/06/23 05:43 Potassium 3.7 mmol/L (3.5-5.1) 08/06/23 05:43 Chloride 103 mmol/L (98-107) 08/06/23 05:43 Carbon Dioxide 33.2 mmol/L (21-32) H 08/06/23 05:43 BUN 10 mg/dL (7-18) 08/06/23 05:43 Creatinine 0.83 mg/dL (0.70-1.30) 08/06/23 05:43 Est GFR (MDRD) Af Amer > 60 (>60) 08/06/23 05:43 Est GFR (MDRD) Non-Af > 60 (>60) 08/06/23 05:43 Glucose 119 mg/dL (65-99) H 08/06/23 05:43 POC Glucose (mg/dL) 142 mg/dL (65-99) H 08/06/23 05:11 Lactic Acid 1.4 mmol/L (0.4-2.0) 08/02/23 19:28 Calcium 8.7 mg/dL (8.5-10.1) 08/06/23 05:43 Corrected Calcium 10.0 mg/dL (8.5-10.1) 08/06/23 05:43 Magnesium 2.2 mg/dL (2.0-2.9) 08/05/23 05:30 Total Bilirubin 0.40 mg/dL (0.2-1.0) 08/06/23 05:43 AST 22 Units/L (15-37) 08/06/23 05:43 ALT 21 Units/L (12-78) 08/06/23 05:43 Alkaline Phosphatase 67 Units/L (46-116) 08/06/23 05:43 Creatine Kinase 176 Units/L (39-308) 08/02/23 17:50 Troponin I High Sens 8.8 ng/L (4.0-60.0) 08/02/23 17:50 B-Natriuretic Peptide 75.1 pg/mL (0-79) 08/04/23 05:33 Total Protein 6.6 g/dL (6.4-8.2) 08/06/23 05:43 Albumin 2.4 g/dL (3.4-5.0) L 08/06/23 05:43 Globulin 4.2 g/dL (2.5-4.5) 08/06/23 05:43 Albumin/Globulin Ratio 0.6 Ratio (1.1-2.1) L 08/06/23 05:43 Specimen Type Catherized urine 08/02/23 19:15 Urine Color Straw (YELLOW) 08/02/23 19:15 Urine Appearance Clear (CLEAR) 08/02/23 19:15 Urine pH 7.0 (5.0 - 8.0) 08/02/23 19:15 Ur Specific [place] 1.015 (1.000-1.030) 08/02/23 19:15 Urine Protein Negative (NEGATIVE) 08/02/23 19:15 Urine Glucose (UA) Negative (NEGATIVE) 08/02/23 19:15 Urine Ketones Negative (NEGATIVE) 08/02/23 19:15 Urine Blood 1+ (NEGATIVE) 08/02/23 19:15 Urine Nitrite Negative (NEGATIVE) 08/02/23 19:15 Urine Bilirubin Negative (NEGATIVE) 08/02/23 19:15 Urine Urobilinogen Normal (NORMAL) 08/02/23 19:15 Ur Leukocyte Esterase Negative (NEGATIVE) 08/02/23 19:15 Urine RBC 0-2 /HPF (0-3) 08/02/23 19:15 Urine WBC None seen /HPF (0-5) 08/02/23 19:15 Ur Squamous Epith Cells Rare /HPF (NEGATIVE) 08/02/23 19:15 Urine Bacteria Negative /HPF (NEGATIVE) 08/02/23 19:15 Ur Culture Indicated? No/not indicated 08/02/23 19:15 SARS-CoV-2 (PCR) Negative (NEGATIVE) 08/02/23 19:16 Influenza Type A (PCR) Negative (NEGATIVE) 08/02/23 19:16 Influenza Type B (PCR) Negative (NEGATIVE) 08/02/23 19:16 RSV (PCR) Negative (NEGATIVE) 08/02/23 19:16 Resp Viral Panel (PCR) See scanned report 08/02/23 20:45 Plan (1) Acute respiratory failure with hypoxia: Status: Acute (2) Bilateral pneumonia: Status: Acute Qualifiers: Lung location: unspecified part of lung Pneumonia type: due to unspecified organism Qualified Code(s): J18.9 - Pneumonia, unspecified organism (3) CHF exacerbation: Status: Acute Qualifiers: Heart failure type: unspecified Qualified Code(s): I50.9 - Heart failure, unspecified (4) Hyperlipidemia: Status: Chronic Qualifiers: Hyperlipidemia type: mixed hyperlipidemia Qualified Code(s): E78.2 - Mixed hyperlipidemia (5) Hypothyroidism: Status: Chronic Qualifiers: Hypothyroidism type: acquired Qualified Code(s): E03.9 - Hypothyroidism, unspecified (6) GERD (gastroesophageal reflux disease): Status: Chronic Qualifiers: Esophagitis presence: esophagitis presence not specified Qualified Code(s): K21.9 - Gastro-esophageal reflux disease without esophagitis
--- NOTE | 2023-08-06 15:03 | CT ---
EXAM:CT CHEST WITH IV CONTRASTHISTORY:Abnormal CXR, SOB, PNEUMONIA -COMPARISON:X-ray 08/05/2023TECHNIQUE:Multiple axial images of the chest were obtained from the thoracic inlet to the upper abdomenfollowing the administration of IV contrast. Sagittal and coronal reformations are performed. Dose reduction techniques including Automated Exposure Control (AEC) and adjustment of mA and kV were utilized.FINDINGS:There are bilateral ground-glass infiltrates with septal thickening. Infiltrates are greatest in the upper lungs with the central thickening greatest in the lower lungs. Mild rounded atelectasis is suspected at the left lung base, unchanged since a CT abdomen of 10/06/2021. There is probable mild honeycombing in the right lung. Moderate bilateral bronchiectasis is present.Probable mild CHF is present and some of the densities in the lungs could be pulmonary edema. Interstitial pneumonia cannot be excluded. There is probable underlying chronic interstitial lung disease given the bronchiectasis and honeycombing. 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 Small hiatus hernia is seen. Small probably reactive mediastinal lymph nodes are seen. The thoracic aorta is mildly prominent in the distal arch measuring 3.3 cm in diameter. It is smaller in size in the ascending section and remainder of the descending section. No aortic dissection is seen. Pulmonary embolus exam is not performed but no large proximal pulmonary embolus is seen.There is a probable diverticulum of the descending duodenal. It measures 4.2 cm in greatest dimension. There may be a 2nd diverticulum of the transverse duodenal measuring 4.3 cm.IMPRESSION:Abnormal appearance of the lungs is probably pulmonary edema superimposed upon chronic interstitial lung disease. Interstitial pneumonia cannot be excluded but would be less likely.2 diverticula are suspected in the duodenum.THIS IS AN ELECTRONICALLY VERIFIED FINAL REPORT08/06/2023 3:00 PM - Electronically signed by Valdo Norman MD
[2023-08-06] MEDS: PULMICORT NEB TX 0.5 MG NEB SCH (16:19)
[2023-08-06] MEDS: SOLU-Medrol 40 MG VIAL IVP SCH (16:48)
--- NOTE | 2023-08-07 06:08 | RAD ---
EXAM:AP chestHISTORY:Follow-upCOMPARISON: 024FINDINGS:There is no change in heart size or mediastinal contour. Persistent bilateral infiltrates are present slightly improved. No additional abnormality is noted.IMPRESSION:Slight improvement. Residual infiltrates may represent any combination of persistent inflammatory involvement and background chronic changes as described on recent CT exam.THIS IS AN ELECTRONICALLY VERIFIED FINAL REPORT08/07/2023 6:05 AM - Electronically signed by Vincent Olivares MD
[2023-08-07 06:38] LABS: BASOPHILS % (AUTO) 0.2 % (0.2-1.0); LYMPHOCYTES # (AUTO) 0.2 X10^3/uL (1.3-2.9); MEAN CORPUSCULAR VOLUME 89.7 fL (80.0-100.0); MONOCYTES # (AUTO) 0.1 x10^3/uL (0.3-0.8); PLATELET COUNT 278 X10^3/uL (150.0-450.0)
[2023-08-07 06:44] LABS: ALANINE AMINOTRANSFERASE 20 Units/L (12-78); ALBUMIN 2.6 g/dL (3.4-5.0); ALKALINE PHOSPHATASE 71 Units/L (46-116); ASPARTATE AMINO TRANSFERASE 24 Units/L (15-37); BLOOD UREA NITROGEN 9 mg/dL (7-18); CALCIUM 8.9 mg/dL (8.5-10.1); CARBON DIOXIDE 32.2 mmol/L (21-32); CHLORIDE 104 mmol/L (98-107); COR NA(FOR HYPERGLY) 143 mmol/L (136-145); GLUCOSE 195 mg/dL (65-99); HEMATOCRIT 33.3 % (42.0-54.0); HEMOGLOBIN 11.2 g/dL (13.5-18.0); LYMPHOCYTES % (AUTO) 4.9 % (21.0-51.0); MEAN CORPUSCULAR HEMOGLOBIN 30.3 pg (27.0-34.0); MEAN CORPUSCULAR HGB CONC 33.8 g/dL (33.0-35.0); MEAN PLATELET VOLUME 8.3 fL (7.4-11.0); MONOCYTES % (AUTO) 2.3 % (0.0-13.0); NEUTROPHILS # (AUTO) 4.6 x10^3/uL (2.2-4.8); NEUTROPHILS % (AUTO) 92.6 % (42.0-75.0); POTASSIUM 4.6 mmol/L (3.5-5.1); RED BLOOD COUNT 3.72 X10^6/uL (4.7-6.0); RED CELL DISTRIBUTION WIDTH 13.6 % (11.6-16.5); SODIUM 141 mmol/L (136-145); TOTAL PROTEIN 6.6 g/dL (6.4-8.2); eGFR NON BLACK RACES > 60 (>60)
[2023-08-07 07:28] LABS: BAND NEUTROPHILS % 2 % (0-10); PLATELET MORPHOLOGY COMMENT NORMAL (NORMAL)
[2023-08-07] MEDS ORDERED: ZITHROMAX INJ 500 MG VIAL IV ONE (08:31)
--- NOTE | 2023-08-07 09:40 | PCM.PROG ---
Progress Note Progress Note for Day of Date of Exam: 08/07/23 Subjective Subjective: Patient seen at bedside, overnight he was placed on Oxy mask due to his sats dropping to the 60s. He ambulated to the bathroom with no O2. He is being weaned down and is currently on HHFNC. He has been having a lot of productive cough. CT-chest yesterday showed bilateral infiltrates superimposed on chronic ILD and ground glass opacities/honey combing. It also showed pulmonary edema. Labs/imaging reviewed -WBC 5 Hgb 11.2 K:4.6 -AIT: negative -CT-chest reviewed -Sputum Cx: neg -Blood Cx: neg -ECHO pending Plan: Wean O2 as tolerated, continue IV antibiotics and bronchodilators. Change Rocephin to Fortaz, continue cough medications. Continue steroids. Add smart vest. Repeat sputum Cx. Add IV lasix 40mg daily, I&Os. Follow echo results. Continue home medications. Replace electrolytes prn. Monitor AM labs/imaging. Time spent for clinical assessment, reviewing labs/imaging, physical exam, decision making and documentation greater than 45 mins. Past Medical Family Social History Allergies: Allergies morphine Allergy (Verified 06/05/17 16:17) lorazepam [From Ativan] Adverse Reaction (Verified 08/03/23 01:27) Vital Signs and I&O's Vital Signs: Vital Signs Temperature 98.2 F Pulse Rate [Left Brachial] 93 Respiratory Rate 21 Blood Pressure [Left Arm] 174/79 O2 Sat by Pulse Oximetry 95 Intake and Output: Intake & Output 08/04/23 08/05/23 08/06/23 08/07/23 23:59 23:59 23:59 23:59 Intake Total 1563 / 1563 1897 / 1897 2606 / 2606 232 / 232 Output Total 280 / 280 600 / 600 Balance 1563 / 1563 1897 / 1897 2326 / 2326 -368 / -368 Physical Exam Oriented: Normal Eyes: Normal Ear: Normal Nose: Normal Throat: Normal Respiratory: Generalized, Rales and Rhonchi Cardiovascular: Normal Auscultation: Bowel Sounds: Normal Palpation: Normal Tenderness: Normal Skin: Normal Musculoskeletal: Normal Psychiatric: Normal Mood Description: Calm and Appropriate Affect: Normal Speech Pattern: Clear and Appropriate Laboratory and Diagnostics 08/07/23 05:37 08/07/23 05:37 Labs: 08/02/23 18:01 Sputum - Expectorated Sputum Sputum Culture - Final 08/02/23 18:01 Sputum - Expectorated Sputum - Final 08/02/23 17:50 Blood Blood Culture - Preliminary 08/02/23 18:20 Blood Blood Culture - Preliminary Laboratory WBC 5.0 X10^3/uL (3.6-10.0) 08/07/23 05:37 RBC 3.72 X10^6/uL (4.7-6.0) L 08/07/23 05:37 Hgb 11.2 g/dL (13.5-18.0) L 08/07/23 05:37 Hct 33.3 % (42.0-54.0) L 08/07/23 05:37 MCV 89.7 fL (80.0-100.0) 08/07/23 05:37 MCH 30.3 pg (27.0-34.0) 08/07/23 05:37 MCHC 33.8 g/dL (33.0-35.0) 08/07/23 05:37 RDW 13.6 % (11.6-16.5) 08/07/23 05:37 Plt Count 278 X10^3/uL (150.0-450.0) 08/07/23 05:37 Plt Count Comment Adequate (ADEQUATE) 08/07/23 05:37 MPV 8.3 fL (7.4-11.0) 08/07/23 05:37 Neut % (Auto) 92.6 % (42.0-75.0) H 08/07/23 05:37 Lymph % (Auto) 4.9 % (21.0-51.0) L 08/07/23 05:37 [place] % (Auto) 2.3 % (0.0-13.0) 08/07/23 05:37 Eos % (Auto) 0.0 % (0.9-2.9) L 08/07/23 05:37 Baso % (Auto) 0.2 % (0.2-1.0) 08/07/23 05:37 Neut # (Auto) 4.6 x10^3/uL (2.2-4.8) 08/07/23 05:37 Lymph # (Auto) 0.2 X10^3/uL (1.3-2.9) L 08/07/23 05:37 [place] # (Auto) 0.1 x10^3/uL (0.3-0.8) L 08/07/23 05:37 Eos # (Auto) 0.0 x10^3/uL (0.0-0.2) 08/07/23 05:37 Baso # (Auto) 0.0 X10^3/uL (0.0-0.1) 08/07/23 05:37 Absolute Nucleated RBC 0.0 /100WBC 08/07/23 05:37 Total Counted 100 08/07/23 05:37 Neutrophils % (Manual) 91 % (39-76) H 08/07/23 05:37 Band Neutrophils % 2 % (0-10) 08/07/23 05:37 Lymphocytes % (Manual) 7 % (13-43) L 08/07/23 05:37 Plt Clumps, EDTA Rare 08/02/23 17:50 Plt Morphology Comment Normal (NORMAL) 08/07/23 05:37 RBC Morphology Normal (NORMAL) 08/07/23 05:37 Sample Site Lr 08/02/23 20:27 ABG pH 7.480 (7.35-7.45) H 08/02/23 20:27 ABG pCO2 35.0 mmHg (35.0-45.0) 08/02/23 20:27 ABG pO2 73.0 mmHg (80.0-100.0) L 08/02/23 20:27 ABG HCO3 26.1 mmol/L (22-26) H 08/02/23 20:27 ABG O2 Saturation 96.0 % (90-100) 08/02/23 20:27 ABG Base Excess 2.8 mmol/L (-2.0-2.0) H 08/02/23 20:27 Mark Test Pos 08/02/23 20:27 A-a Gradient 240.0 mmHg 08/02/23 20:27 FiO2 50.0 08/02/23 20:27 Blood Gas Comments Taisha well ae 08/02/23 20:27 Sodium 141 mmol/L (136-145) 08/07/23 05:37 Corrected Sodium 143 mmol/L (136-145) 08/07/23 05:37 Potassium 4.6 mmol/L (3.5-5.1) 08/07/23 05:37 Chloride 104 mmol/L (98-107) 08/07/23 05:37 Carbon Dioxide 32.2 mmol/L (21-32) H 08/07/23 05:37 BUN 9 mg/dL (7-18) 08/07/23 05:37 Creatinine 0.80 mg/dL (0.70-1.30) 08/07/23 05:37 Est GFR (MDRD) Af Amer > 60 (>60) 08/07/23 05:37 Est GFR (MDRD) Non-Af > 60 (>60) 08/07/23 05:37 Glucose 195 mg/dL (65-99) H 08/07/23 05:37 POC Glucose (mg/dL) 202 mg/dL (65-99) H 08/07/23 05:47 Lactic Acid 1.4 mmol/L (0.4-2.0) 08/02/23 19:28 Calcium 8.9 mg/dL (8.5-10.1) 08/07/23 05:37 Corrected Calcium 10.0 mg/dL (8.5-10.1) 08/07/23 05:37 Magnesium 2.2 mg/dL (2.0-2.9) 08/05/23 05:30 Total Bilirubin 0.40 mg/dL (0.2-1.0) 08/07/23 05:37 AST 24 Units/L (15-37) 08/07/23 05:37 ALT 20 Units/L (12-78) 08/07/23 05:37 Alkaline Phosphatase 71 Units/L (46-116) 08/07/23 05:37 Creatine Kinase 176 Units/L (39-308) 08/02/23 17:50 Troponin I High Sens 8.8 ng/L (4.0-60.0) 08/02/23 17:50 B-Natriuretic Peptide 75.1 pg/mL (0-79) 08/04/23 05:33 Total Protein 6.6 g/dL (6.4-8.2) 08/07/23 05:37 Albumin 2.6 g/dL (3.4-5.0) L 08/07/23 05:37 Globulin 4.0 g/dL (2.5-4.5) 08/07/23 05:37 Albumin/Globulin Ratio 0.7 Ratio (1.1-2.1) L 08/07/23 05:37 Specimen Type Catherized urine 08/02/23 19:15 Urine Color Straw (YELLOW) 08/02/23 19:15 Urine Appearance Clear (CLEAR) 08/02/23 19:15 Urine pH 7.0 (5.0 - 8.0) 08/02/23 19:15 Ur Specific [place] 1.015 (1.000-1.030) 08/02/23 19:15 Urine Protein Negative (NEGATIVE) 08/02/23 19:15 Urine Glucose (UA) Negative (NEGATIVE) 08/02/23 19:15 Urine Ketones Negative (NEGATIVE) 08/02/23 19:15 Urine Blood 1+ (NEGATIVE) 08/02/23 19:15 Urine Nitrite Negative (NEGATIVE) 08/02/23 19:15 Urine Bilirubin Negative (NEGATIVE) 08/02/23 19:15 Urine Urobilinogen Normal (NORMAL) 08/02/23 19:15 Ur Leukocyte Esterase Negative (NEGATIVE) 08/02/23 19:15 Urine RBC 0-2 /HPF (0-3) 08/02/23 19:15 Urine WBC None seen /HPF (0-5) 08/02/23 19:15 Ur Squamous Epith Cells Rare /HPF (NEGATIVE) 08/02/23 19:15 Urine Bacteria Negative /HPF (NEGATIVE) 08/02/23 19:15 Ur Culture Indicated? No/not indicated 08/02/23 19:15 SARS-CoV-2 (PCR) Negative (NEGATIVE) 08/02/23 19:16 Influenza Type A (PCR) Negative (NEGATIVE) 08/02/23 19:16 Influenza Type B (PCR) Negative (NEGATIVE) 08/02/23 19:16 RSV (PCR) Negative (NEGATIVE) 08/02/23 19:16 Resp Viral Panel (PCR) See scanned report 08/02/23 20:45 Plan (1) Acute respiratory failure with hypoxia: Status: Acute (2) Bilateral pneumonia: Status: Acute Qualifiers: Lung location: unspecified part of lung Pneumonia type: due to unspecified organism Qualified Code(s): J18.9 - Pneumonia, unspecified organism Plan: IV abx (3) CHF exacerbation: Status: Acute Qualifiers: Heart failure type: unspecified Qualified Code(s): I50.9 - Heart failure, unspecified Plan: order echo (4) Hyperlipidemia: Status: Chronic Qualifiers: Hyperlipidemia type: mixed hyperlipidemia Qualified Code(s): E78.2 - Mixed hyperlipidemia (5) Hypothyroidism: Status: Chronic Qualifiers: Hypothyroidism type: acquired Qualified Code(s): E03.9 - Hypothyroidism, unspecified (6) GERD (gastroesophageal reflux disease): Status: Chronic Qualifiers: Esophagitis presence: esophagitis presence not specified Qualified Code(s): K21.9 - Gastro-esophageal reflux disease without esophagitis (7) ILD (interstitial lung disease): Status: Acute
[2023-08-07] MEDS: LASIX IVP SCH (10:17)
[2023-08-07] MEDS: NovoLIN R (or HumuLIN R) SUBCUT PRN (11:44)
[2023-08-07] MEDS: FORTAZ or TAZICEF VIAL INJ 1 G in NS 100 ML IV 100 ML IV SCH (13:21)
[2023-08-07] MEDS: SNACK - Diabetic Appropriate PO SCH (20:40)
[2023-08-08 05:34] LABS: BASOPHILS % (AUTO) 0.1 % (0.2-1.0); HEMATOCRIT 33.3 % (42.0-54.0); HEMOGLOBIN 11.2 g/dL (13.5-18.0); LYMPHOCYTES # (AUTO) 0.3 X10^3/uL (1.3-2.9); LYMPHOCYTES % (AUTO) 3.8 % (21.0-51.0); MEAN CORPUSCULAR HEMOGLOBIN 29.9 pg (27.0-34.0); MEAN CORPUSCULAR HGB CONC 33.5 g/dL (33.0-35.0); MEAN CORPUSCULAR VOLUME 89.5 fL (80.0-100.0); MEAN PLATELET VOLUME 8.3 fL (7.4-11.0); MONOCYTES # (AUTO) 0.1 x10^3/uL (0.3-0.8); MONOCYTES % (AUTO) 2.1 % (0.0-13.0); NEUTROPHILS # (AUTO) 6.5 x10^3/uL (2.2-4.8); PLATELET COUNT 307 X10^3/uL (150.0-450.0); RED BLOOD COUNT 3.73 X10^6/uL (4.7-6.0); RED CELL DISTRIBUTION WIDTH 13.6 % (11.6-16.5); WHITE BLOOD COUNT 6.9 X10^3/uL (3.6-10.0)
[2023-08-08 05:36] LABS: ALANINE AMINOTRANSFERASE 21 Units/L (12-78); ALBUMIN 2.6 g/dL (3.4-5.0); ALKALINE PHOSPHATASE 74 Units/L (46-116); ASPARTATE AMINO TRANSFERASE 19 Units/L (15-37); BLOOD UREA NITROGEN 13 mg/dL (7-18); CALCIUM 8.8 mg/dL (8.5-10.1); CARBON DIOXIDE 34.8 mmol/L (21-32); CHLORIDE 103 mmol/L (98-107); COR CA(FOR HYPOALB) 9.9 mg/dL (8.5-10.1); COR NA(FOR HYPERGLY) 143 mmol/L (136-145); CREATININE 0.86 mg/dL (0.70-1.30); GLUCOSE 205 mg/dL (65-99); POTASSIUM 3.9 mmol/L (3.5-5.1); SODIUM 140 mmol/L (136-145); TOTAL PROTEIN 6.6 g/dL (6.4-8.2); eGFR NON BLACK RACES > 60 (>60)
[2023-08-08 05:54] LABS: PLATELET MORPHOLOGY COMMENT NORMAL (NORMAL)
[2023-08-08] MEDS: OMNIPAQUE 350 mg/mL 100 mL BTL 100 ML ONE (07:12)
--- NOTE | 2023-08-08 09:32 | PCM.PROG ---
Progress Note Progress Note for Day of Date of Exam: 08/08/23 Subjective Subjective: Patient seen at bedside, no acute events overnight. He remains on HHFNC at FiO2 40%. He has been on that since yesterday. He states he does feel better today. He still has productive cough. Labs/imaging reviewed -WBC 6.9 Hgb 11.2 K:3.9 -AIT: negative -CT-chest reviewed -Sputum Cx repeat pending -Blood Cx: neg -ECHO reviewed Plan: Repeat CXR, Wean O2 as tolerated, continue IV antibiotics and bronchodilators. Continue Fortaz and Azithromycin, continue cough medications. C ontinue steroids. Continue smart vest. Follow pending cultures. Continue IV lasix 40mg daily, I&Os. Continue home medications. Replace electrolytes prn. Monitor AM labs/imaging. Time spent for clinical assessment, reviewing labs/imaging, physical exam, decision making and documentation greater than 45 mins. Past Medical Family Social History Allergies: Allergies morphine Allergy (Verified 06/05/17 16:17) lorazepam [From Ativan] Adverse Reaction (Verified 08/03/23 01:27) Vital Signs and I&O's Vital Signs: Vital Signs Temperature 98.4 F Temperature 98.3 F Pulse Rate [Left Brachial] 69 Pulse Rate [Left Brachial] 66 Pulse Rate 79 Respiratory Rate 22 Respiratory Rate 24 Respiratory Rate 22 Blood Pressure [Right Arm] 128/82 Blood Pressure [Right Arm] 136/67 O2 Sat by Pulse Oximetry 97 O2 Sat by Pulse Oximetry 97 O2 Sat by Pulse Oximetry 97 Intake and Output: Intake & Output 08/05/23 08/06/23 08/07/23 08/08/23 23:59 23:59 23:59 23:59 Intake Total 1896 / 1896 2606 / 2606 1845 / 1845 264 / 264 Output Total 280 / 280 2400 / 2400 Balance 1896 / 189 2326 / 2326 -555 / -555 264 / 264 Physical Exam Oriented: Normal Eyes: Normal Ear: Normal Nose: Normal Throat: Normal Respiratory: Generalized, Rales and Rhonchi Cardiovascular: Normal Auscultation: Bowel Sounds: Normal Palpation: Normal Tenderness: Normal Skin: Normal Musculoskeletal: Normal Psychiatric: Normal Mood Description: Calm and Appropriate Affect: Normal Speech Pattern: Clear and Appropriate Laboratory and Diagnostics 08/08/23 05:03 08/08/23 05:03 Labs: 08/07/23 09:05 Sputum - Expectorated Sputum Sputum Culture - Preliminary 08/07/23 09:05 Sputum - Expectorated Sputum - Final 08/02/23 18:01 Sputum - Expectorated Sputum Sputum Culture - Final 08/02/23 18:01 Sputum - Expectorated Sputum - Final 08/02/23 17:50 Blood Blood Culture - Preliminary 08/02/23 18:20 Blood Blood Culture - Preliminary Laboratory WBC 6.9 X10^3/uL (3.6-10.0) 08/08/23 05:03 RBC 3.73 X10^6/uL (4.7-6.0) L 08/08/23 05:03 Hgb 11.2 g/dL (13.5-18.0) L 08/08/23 05:03 Hct 33.3 % (42.0-54.0) L 08/08/23 05:03 MCV 89.5 fL (80.0-100.0) 08/08/23 05:03 MCH 29.9 pg (27.0-34.0) 08/08/23 05:03 MCHC 33.5 g/dL (33.0-35.0) 08/08/23 05:03 RDW 13.6 % (11.6-16.5) 08/08/23 05:03 Plt Count 307 X10^3/uL (150.0-450.0) 08/08/23 05:03 Plt Count Comment Adequate (ADEQUATE) 08/08/23 05:03 MPV 8.3 fL (7.4-11.0) 08/08/23 05:03 Neut % (Auto) 94.0 % (42.0-75.0) H 08/08/23 05:03 Lymph % (Auto) 3.8 % (21.0-51.0) L 08/08/23 05:03 [place] % (Auto) 2.1 % (0.0-13.0) 08/08/23 05:03 Eos % (Auto) 0.0 % (0.9-2.9) L 08/08/23 05:03 Baso % (Auto) 0.1 % (0.2-1.0) L 08/08/23 05:03 Neut # (Auto) 6.5 x10^3/uL (2.2-4.8) H 08/08/23 05:03 Lymph # (Auto) 0.3 X10^3/uL (1.3-2.9) L 08/08/23 05:03 [place] # (Auto) 0.1 x10^3/uL (0.3-0.8) L 08/08/23 05:03 Eos # (Auto) 0.0 x10^3/uL (0.0-0.2) 08/08/23 05:03 Baso # (Auto) 0.0 X10^3/uL (0.0-0.1) 08/08/23 05:03 Absolute Nucleated RBC 0.0 /100WBC 08/08/23 05:03 Total Counted 100 08/08/23 05:03 Neutrophils % (Manual) 92 % (39-76) H 08/08/23 05:03 Band Neutrophils % 2 % (0-10) 08/07/23 05:37 Lymphocytes % (Manual) 7 % (13-43) L 08/08/23 05:03 Monocytes % (Manual) 1 % (4-9) L 08/08/23 05:03 Plt Clumps, EDTA Rare 08/02/23 17:50 Plt Morphology Comment Normal (NORMAL) 08/08/23 05:03 RBC Morphology Normal (NORMAL) 08/08/23 05:03 Sample Site Lr 08/02/23 20:27 ABG pH 7.480 (7.35-7.45) H 08/02/23 20:27 ABG pCO2 35.0 mmHg (35.0-45.0) 08/02/23 20:27 ABG pO2 73.0 mmHg (80.0-100.0) L 08/02/23 20:27 ABG HCO3 26.1 mmol/L (22-26) H 08/02/23 20:27 ABG O2 Saturation 96.0 % (90-100) 08/02/23 20:27 ABG Base Excess 2.8 mmol/L (-2.0-2.0) H 08/02/23 20:27 Mark Test Pos 08/02/23 20:27 A-a Gradient 240.0 mmHg 08/02/23 20:27 FiO2 50.0 08/02/23 20:27 Blood Gas Comments Taisha well ae 08/02/23 20:27 Sodium 140 mmol/L (136-145) 08/08/23 05:03 Corrected Sodium 143 mmol/L (136-145) 08/08/23 05:03 Potassium 3.9 mmol/L (3.5-5.1) 08/08/23 05:03 Chloride 103 mmol/L (98-107) 08/08/23 05:03 Carbon Dioxide 34.8 mmol/L (21-32) H 08/08/23 05:03 BUN 13 mg/dL (7-18) 08/08/23 05:03 Creatinine 0.86 mg/dL (0.70-1.30) 08/08/23 05:03 Est GFR (MDRD) Af Amer > 60 (>60) 08/08/23 05:03 Est GFR (MDRD) Non-Af > 60 (>60) 08/08/23 05:03 Glucose 205 mg/dL (65-99) H 08/08/23 05:03 POC Glucose (mg/dL) 216 mg/dL (65-99) H 08/08/23 05:25 Lactic Acid 1.4 mmol/L (0.4-2.0) 08/02/23 19:28 Calcium 8.8 mg/dL (8.5-10.1) 08/08/23 05:03 Corrected Calcium 9.9 mg/dL (8.5-10.1) 08/08/23 05:03 Magnesium 2.2 mg/dL (2.0-2.9) 08/05/23 05:30 Total Bilirubin 0.40 mg/dL (0.2-1.0) 08/08/23 05:03 AST 19 Units/L (15-37) 08/08/23 05:03 ALT 21 Units/L (12-78) 08/08/23 05:03 Alkaline Phosphatase 74 Units/L (46-116) 08/08/23 05:03 Creatine Kinase 176 Units/L (39-308) 08/02/23 17:50 Troponin I High Sens 8.8 ng/L (4.0-60.0) 08/02/23 17:50 B-Natriuretic Peptide 75.1 pg/mL (0-79) 08/04/23 05:33 Total Protein 6.6 g/dL (6.4-8.2) 08/08/23 05:03 Albumin 2.6 g/dL (3.4-5.0) L 08/08/23 05:03 Globulin 4.0 g/dL (2.5-4.5) 08/08/23 05:03 Albumin/Globulin Ratio 0.7 Ratio (1.1-2.1) L 08/08/23 05:03 Specimen Type Catherized urine 08/02/23 19:15 Urine Color Straw (YELLOW) 08/02/23 19:15 Urine Appearance Clear (CLEAR) 08/02/23 19:15 Urine pH 7.0 (5.0 - 8.0) 08/02/23 19:15 Ur Specific [place] 1.015 (1.000-1.030) 08/02/23 19:15 Urine Protein Negative (NEGATIVE) 08/02/23 19:15 Urine Glucose (UA) Negative (NEGATIVE) 08/02/23 19:15 Urine Ketones Negative (NEGATIVE) 08/02/23 19:15 Urine Blood 1+ (NEGATIVE) 08/02/23 19:15 Urine Nitrite Negative (NEGATIVE) 08/02/23 19:15 Urine Bilirubin Negative (NEGATIVE) 08/02/23 19:15 Urine Urobilinogen Normal (NORMAL) 08/02/23 19:15 Ur Leukocyte Esterase Negative (NEGATIVE) 08/02/23 19:15 Urine RBC 0-2 /HPF (0-3) 08/02/23 19:15 Urine WBC None seen /HPF (0-5) 08/02/23 19:15 Ur Squamous Epith Cells Rare /HPF (NEGATIVE) 08/02/23 19:15 Urine Bacteria Negative /HPF (NEGATIVE) 08/02/23 19:15 Ur Culture Indicated? No/not indicated 08/02/23 19:15 SARS-CoV-2 (PCR) Negative (NEGATIVE) 08/02/23 19:16 Influenza Type A (PCR) Negative (NEGATIVE) 08/02/23 19:16 Influenza Type B (PCR) Negative (NEGATIVE) 08/02/23 19:16 RSV (PCR) Negative (NEGATIVE) 08/02/23 19:16 Resp Viral Panel (PCR) See scanned report 08/02/23 20:45 Plan (1) Acute respiratory failure with hypoxia: Status: Acute (2) Bilateral pneumonia: Status: Acute Qualifiers: Lung location: unspecified part of lung Pneumonia type: due to unspecified organism Qualified Code(s): J18.9 - Pneumonia, unspecified organism Plan: IV abx (3) CHF exacerbation: Status: Acute Qualifiers: Heart failure type: unspecified Qualified Code(s): I50.9 - Heart failure, unspecified Plan: order echo (4) Hyperlipidemia: Status: Chronic Qualifiers: Hyperlipidemia type: mixed hyperlipidemia Qualified Code(s): E78.2 - Mixed hyperlipidemia (5) Hypothyroidism: Status: Chronic Qualifiers: Hypothyroidism type: acquired Qualified Code(s): E03.9 - Hypothyroidism, unspecified (6) GERD (gastroesophageal reflux disease): Status: Chronic Qualifiers: Esophagitis presence: esophagitis presence not specified Qualified Code(s): K21.9 - Gastro-esophageal reflux disease without esophagitis (7) ILD (interstitial lung disease): Status: Acute
--- NOTE | 2023-08-08 11:05 | RAD ---
EXAM: CHEST x-ray, 1 VIEW HISTORY: SOB, PNA - COMPARISON: X-ray 08/05/2023 FINDINGS: Abnormal interstitial densities in the lungs are unchanged. Borderline cardiomegaly persists with po ssible CHF right CP angle is excluded on this study. There is probably a small left pleural effusion . IMPRESSION: Appearance of the chest is similar to prior study. THIS IS AN ELECTRONICALLY VERIFIED FINAL REPORT 08/08/2023 11:01 AM - Electronically signed by Valdo Norman MD
[2023-08-09 05:35] LABS: BASOPHILS % (AUTO) 0.2 % (0.2-1.0); HEMATOCRIT 33.5 % (42.0-54.0); HEMOGLOBIN 11.1 g/dL (13.5-18.0); LYMPHOCYTES # (AUTO) 0.3 X10^3/uL (1.3-2.9); LYMPHOCYTES % (AUTO) 3.2 % (21.0-51.0); MEAN CORPUSCULAR HEMOGLOBIN 29.9 pg (27.0-34.0); MEAN CORPUSCULAR HGB CONC 33.3 g/dL (33.0-35.0); MEAN CORPUSCULAR VOLUME 89.9 fL (80.0-100.0); MEAN PLATELET VOLUME 7.9 fL (7.4-11.0); MONOCYTES # (AUTO) 0.3 x10^3/uL (0.3-0.8); MONOCYTES % (AUTO) 3.6 % (0.0-13.0); NEUTROPHILS # (AUTO) 7.5 x10^3/uL (2.2-4.8); PLATELET COUNT 314 X10^3/uL (150.0-450.0); RED BLOOD COUNT 3.72 X10^6/uL (4.7-6.0); RED CELL DISTRIBUTION WIDTH 13.6 % (11.6-16.5); WHITE BLOOD COUNT 8.1 X10^3/uL (3.6-10.0)
[2023-08-09 05:52] LABS: ALANINE AMINOTRANSFERASE 22 Units/L (12-78); ALBUMIN 2.5 g/dL (3.4-5.0); ALKALINE PHOSPHATASE 80 Units/L (46-116); ASPARTATE AMINO TRANSFERASE 15 Units/L (15-37); BLOOD UREA NITROGEN 14 mg/dL (7-18); CALCIUM 8.5 mg/dL (8.5-10.1); CARBON DIOXIDE 36.3 mmol/L (21-32); CHLORIDE 104 mmol/L (98-107); COR CA(FOR HYPOALB) 9.7 mg/dL (8.5-10.1); COR NA(FOR HYPERGLY) 144 mmol/L (136-145); CREATININE 0.97 mg/dL (0.70-1.30); GLUCOSE 242 mg/dL (65-99); PLATELET MORPHOLOGY COMMENT NORMAL (NORMAL); POTASSIUM 4.2 mmol/L (3.5-5.1); SODIUM 141 mmol/L (136-145); TOTAL PROTEIN 6.2 g/dL (6.4-8.2); eGFR NON BLACK RACES > 60 (>60)
--- NOTE | 2023-08-09 10:51 | PCM.PROG ---
Progress Note Progress Note for Day of Date of Exam: 08/09/23 Subjective Subjective: Patient this morning resting in bed. No acute events overnight. He was able to be weaned from HHFNC to nasal cannula of 4L. He reports improvement in his breathing. He still has productive cough. Labs/imaging reviewed -WBC 8.1, Hgb 11.1, Plt 314, Na 141, K 4.2, Creatinine 0.97, Glucose 242, -AIT: negative -CT-chest reviewed -Sputum Cx repeat no growth -Blood Cx: neg -ECHO reviewed Plan: Wean O2 as tolerated, continue IV antibiotics and bronchodilators. Continue Fortaz and Azithromycin, continue cough medications. Continue steroids. Continue smart vest. Continue IV lasix 40mg daily, I&Os. Continue home medications. Replace electrolytes prn. Monitor AM labs/imaging. Time spent for clinical assessment, reviewing labs/imaging, physical exam, decision making and documentation greater than 45 mins. Past Medical Family Social History Allergies: Allergies morphine Allergy (Verified 06/05/17 16:17) lorazepam [From Ativan] Adverse Reaction (Verified 08/03/23 01:27) Review of Systems ROS changes noted: see HPI Vital Signs and I&O's Vital Signs: Vital Signs Temperature 98 F Temperature 97.8 F Pulse Rate [Left Brachial] 68 Pulse Rate [Left Brachial] 82 Pulse Rate 57 Respiratory Rate 18 Respiratory Rate 22 Blood Pressure [Left Arm] 141/79 Blood Pressure [Right Arm] 173/77 O2 Sat by Pulse Oximetry 97 O2 Sat by Pulse Oximetry 97 O2 Sat by Pulse Oximetry 94 Intake and Output: Intake & Output 08/06/23 08/07/23 08/08/23 08/09/23 23:59 23:59 23:59 23:59 Intake Total 2606 / 2606 1845 / 1845 1778 / 1778 655 / 655 Output Total 280 / 280 2400 / 2400 300 / 300 Balance 2326 / 2326 -555 / -555 1478 / 1478 655 / 655 Physical Exam Oriented: Normal Eyes: Normal Ear: Normal Nose: Normal Throat: Normal Respiratory: Generalized and Rhonchi Cardiovascular: Normal : Normal Auscultation: Bowel Sounds: Normal Tenderness: Normal Skin: Normal Musculoskeletal: Normal Psychiatric: Normal Mood Description: Calm and Appropriate Affect: Normal Speech Pattern: Clear and Appropriate Laboratory and Diagnostics 08/09/23 05:24 08/09/23 05:24 Labs: 08/07/23 09:05 Sputum - Expectorated Sputum Sputum Culture - Final 08/07/23 09:05 Sputum - Expectorated Sputum - Final 08/02/23 18:20 Blood Blood Culture - Final 08/02/23 17:50 Blood Blood Culture - Final 08/02/23 18:01 Sputum - Expectorated Sputum Sputum Culture - Final 08/02/23 18:01 Sputum - Expectorated Sputum - Final Laboratory WBC 8.1 X10^3/uL (3.6-10.0) 08/09/23 05:24 RBC 3.72 X10^6/uL (4.7-6.0) L 08/09/23 05:24 Hgb 11.1 g/dL (13.5-18.0) L 08/09/23 05:24 Hct 33.5 % (42.0-54.0) L 08/09/23 05:24 MCV 89.9 fL (80.0-100.0) 08/09/23 05:24 MCH 29.9 pg (27.0-34.0) 08/09/23 05:24 MCHC 33.3 g/dL (33.0-35.0) 08/09/23 05:24 RDW 13.6 % (11.6-16.5) 08/09/23 05:24 Plt Count 314 X10^3/uL (150.0-450.0) 08/09/23 05:24 Plt Count Comment Adequate (ADEQUATE) 08/09/23 05:24 MPV 7.9 fL (7.4-11.0) 08/09/23 05:24 Neut % (Auto) 93.0 % (42.0-75.0) H 08/09/23 05:24 Lymph % (Auto) 3.2 % (21.0-51.0) L 08/09/23 05:24 [place] % (Auto) 3.6 % (0.0-13.0) 08/09/23 05:24 Eos % (Auto) 0.0 % (0.9-2.9) L 08/09/23 05:24 Baso % (Auto) 0.2 % (0.2-1.0) 08/09/23 05:24 Neut # (Auto) 7.5 x10^3/uL (2.2-4.8) H 08/09/23 05:24 Lymph # (Auto) 0.3 X10^3/uL (1.3-2.9) L 08/09/23 05:24 [place] # (Auto) 0.3 x10^3/uL (0.3-0.8) 08/09/23 05:24 Eos # (Auto) 0.0 x10^3/uL (0.0-0.2) 08/09/23 05:24 Baso # (Auto) 0.0 X10^3/uL (0.0-0.1) 08/09/23 05:24 Absolute Nucleated RBC 0.1 /100WBC 08/09/23 05:24 Total Counted 100 08/09/23 05:24 Neutrophils % (Manual) 95 % (39-76) H 08/09/23 05:24 Band Neutrophils % 2 % (0-10) 08/07/23 05:37 Lymphocytes % (Manual) 3 % (13-43) L 08/09/23 05:24 Monocytes % (Manual) 2 % (4-9) L 08/09/23 05:24 Plt Clumps, EDTA Rare 08/02/23 17:50 Plt Morphology Comment Normal (NORMAL) 08/09/23 05: RBC Morphology Normal (NORMAL) 08/09/23 05:24 Sample Site Lr 08/02/23 20:27 ABG pH 7.480 (7.35-7.45) H 08/02/23 20:27 ABG pCO2 35.0 mmHg (35.0-45.0) 08/02/23 20:27 ABG pO2 73.0 mmHg (80.0-100.0) L 08/02/23 20:27 ABG HCO3 26.1 mmol/L (22-26) H 08/02/23 20:27 ABG O2 Saturation 96.0 % (90-100) 08/02/23 20:27 ABG Base Excess 2.8 mmol/L (-2.0-2.0) H 08/02/23 20:27 Mark Test Pos 08/02/23 20:27 A-a Gradient 240.0 mmHg 08/02/23 20:27 FiO2 50.0 08/02/23 20:27 Blood Gas Comments Taisha well ae 08/02/23 20:27 Sodium 141 mmol/L (136-145) 08/09/23 05:24 Corrected Sodium 144 mmol/L (136-145) 08/09/23 05:24 Potassium 4.2 mmol/L (3.5-5.1) 08/09/23 05:24 Chloride 104 mmol/L (98-107) 08/09/23 05:24 Carbon Dioxide 36.3 mmol/L (21-32) H 08/09/23 05:24 BUN 14 mg/dL (7-18) 08/09/23 05:24 Creatinine 0.97 mg/dL (0.70-1.30) 08/09/23 05:24 Est GFR (MDRD) Af Amer > 60 (>60) 08/09/23 05:24 Est GFR (MDRD) Non-Af > 60 (>60) 08/09/23 05:24 Glucose 242 mg/dL (65-99) H 08/09/23 05:24 POC Glucose (mg/dL) 248 mg/dL (65-99) H 08/09/23 05:10 Lactic Acid 1.4 mmol/L (0.4-2.0) 08/02/23 19:28 Calcium 8.5 mg/dL (8.5-10.1) 08/09/23 05:24 Corrected Calcium 9.7 mg/dL (8.5-10.1) 08/09/23 05:24 Magnesium 2.2 mg/dL (2.0-2.9) 08/05/23 05:30 Total Bilirubin 0.30 mg/dL (0.2-1.0) 08/09/23 05:24 AST 15 Units/L (15-37) 08/09/23 05:24 ALT 22 Units/L (12-78) 08/09/23 05:24 Alkaline Phosphatase 80 Units/L (46-116) 08/09/23 05:24 Creatine Kinase 176 Units/L (39-308) 08/02/23 17:50 Troponin I High Sens 8.8 ng/L (4.0-60.0) 08/02/23 17:50 B-Natriuretic Peptide 75.1 pg/mL (0-79) 08/04/23 05:33 Total Protein 6.2 g/dL (6.4-8.2) L 08/09/23 05:24 Albumin 2.5 g/dL (3.4-5.0) L 08/09/23 05:24 Globulin 3.7 g/dL (2.5-4.5) 08/09/23 05:24 Albumin/Globulin Ratio 0.7 Ratio (1.1-2.1) L 08/09/23 05:24 Specimen Type Catherized urine 08/02/23 19:15 Urine Color Straw (YELLOW) 08/02/23 19:15 Urine Appearance Clear (CLEAR) 08/02/23 19:15 Urine pH 7.0 (5.0 - 8.0) 08/02/23 19:15 Ur Specific [place] 1.015 (1.000-1.030) 08/02/23 19:15 Urine Protein Negative (NEGATIVE) 08/02/23 19:15 Urine Glucose (UA) Negative (NEGATIVE) 08/02/23 19:15 Urine Ketones Negative (NEGATIVE) 08/02/23 19:15 Urine Blood 1+ (NEGATIVE) 08/02/23 19:15 Urine Nitrite Negative (NEGATIVE) 08/02/23 19:15 Urine Bilirubin Negative (NEGATIVE) 08/02/23 19:15 Urine Urobilinogen Normal (NORMAL) 08/02/23 19:15 Ur Leukocyte Esterase Negative (NEGATIVE) 08/02/23 19:15 Urine RBC 0-2 /HPF (0-3) 08/02/23 19:15 Urine WBC None seen /HPF (0-5) 08/02/23 19:15 Ur Squamous Epith Cells Rare /HPF (NEGATIVE) 08/02/23 19:15 Urine Bacteria Negative /HPF (NEGATIVE) 08/02/23 19:15 Ur Culture Indicated? No/not indicated 08/02/23 19:15 SARS-CoV-2 (PCR) Negative (NEGATIVE) 08/02/23 19:16 Influenza Type A (PCR) Negative (NEGATIVE) 08/02/23 19:16 Influenza Type B (PCR) Negative (NEGATIVE) 08/02/23 19:16 RSV (PCR) Negative (NEGATIVE) 08/02/23 19:16 Resp Viral Panel (PCR) See scanned report 08/02/23 20:45 Plan (1) Acute respiratory failure with hypoxia: Status: Acute (2) Bilateral pneumonia: Status: Acute Qualifiers: Lung location: unspecified part of lung Pneumonia type: due to unspecified organism Qualified Code(s): J18.9 - Pneumonia, unspecified organism Plan: IV abx (3) CHF exacerbation: Status: Acute Qualifiers: Heart failure type: unspecified Qualified Code(s): I50.9 - Heart failure, unspecified Plan: order echo (4) Hyperlipidemia: Status: Chronic Qualifiers: Hyperlipidemia type: mixed hyperlipidemia Qualified Code(s): E78.2 - Mixed hyperlipidemia (5) Hypothyroidism: Status: Chronic Qualifiers: Hypothyroidism type: acquired Qualified Code(s): E03.9 - Hypothyroidism, unspecified (6) GERD (gastroesophageal reflux disease): Status: Chronic Qualifiers: Esophagitis presence: esophagitis presence not specified Qualified Code(s): K21.9 - Gastro-esophageal reflux disease without esophagitis (7) ILD (interstitial lung disease): Status: Acute
[2023-08-10 05:56] LABS: BASOPHILS % (AUTO) 0.1 % (0.2-1.0); EOSINOPHILS % (AUTO) 0.1 % (0.9-2.9); HEMATOCRIT 34.5 % (42.0-54.0); HEMOGLOBIN 11.4 g/dL (13.5-18.0); LYMPHOCYTES # (AUTO) 0.3 X10^3/uL (1.3-2.9); LYMPHOCYTES % (AUTO) 3.5 % (21.0-51.0); MEAN CORPUSCULAR HEMOGLOBIN 29.8 pg (27.0-34.0); MEAN CORPUSCULAR VOLUME 90.5 fL (80.0-100.0); MEAN PLATELET VOLUME 8.1 fL (7.4-11.0); MONOCYTES # (AUTO) 0.1 x10^3/uL (0.3-0.8); MONOCYTES % (AUTO) 1.8 % (0.0-13.0); NEUTROPHILS % (AUTO) 94.5 % (42.0-75.0); PLATELET COUNT 316 X10^3/uL (150.0-450.0); RED BLOOD COUNT 3.81 X10^6/uL (4.7-6.0); RED CELL DISTRIBUTION WIDTH 13.7 % (11.6-16.5); WHITE BLOOD COUNT 7.4 X10^3/uL (3.6-10.0)
[2023-08-10 06:15] LABS: ALANINE AMINOTRANSFERASE 27 Units/L (12-78); ALBUMIN 2.7 g/dL (3.4-5.0); ALKALINE PHOSPHATASE 102 Units/L (46-116); ASPARTATE AMINO TRANSFERASE 16 Units/L (15-37); BLOOD UREA NITROGEN 14 mg/dL (7-18); CALCIUM 8.6 mg/dL (8.5-10.1); CARBON DIOXIDE 35.9 mmol/L (21-32); CHLORIDE 101 mmol/L (98-107); COR CA(FOR HYPOALB) 9.6 mg/dL (8.5-10.1); COR NA(FOR HYPERGLY) 144 mmol/L (136-145); CREATININE 1.01 mg/dL (0.70-1.30); GLUCOSE 217 mg/dL (65-99); POTASSIUM 3.9 mmol/L (3.5-5.1); SODIUM 141 mmol/L (136-145); TOTAL PROTEIN 6.3 g/dL (6.4-8.2); eGFR NON BLACK RACES > 60 (>60)
[2023-08-10 06:26] LABS: PLATELET MORPHOLOGY COMMENT NORMAL (NORMAL)
[2023-08-10 08:03] VITALS: BP 149/75; PULSE 67; RESP 18; TEMP 98
[2023-08-10 08:58] VITALS: O2SAT 88
--- NOTE | 2023-08-11 08:58 | W.DIS.FURT ---
Summary of Discharge Discharge Summary of Date Date of Exam: 08/10/23 Admission Date Date of Admission: 08/02/23 Admission Diagnosis Patient Problems (Updated 08/07/23 @ 09:40 by Sol Tellez) Bilateral pneumonia (Acute) J18.9 Hospital Course: Patient is a 77 year old male admitted for pneumonia and acute respiratory failure. His hospital/treatment course included: Wean O2 as tolerated, IV antibiotics Fortaz and Azithromycin, IV steroids, bronchodilators, cough medications. Smart vest. IV lasix 40mg daily, I&Os. Electrolytes repleted per protocol. Pt responded to treatments and symptoms significantly improved. Pt will require home oxygen of 2L nasal cannula. Pt discharged in stable condition, rx levaquin and prednisone. Instructed to follow up with pcp in 1 week. Vital Signs: Vital Signs (72 hours) 08/07/23 11:48 08/07/23 16:00 08/07/23 20:00 Temperature 97.4 F L 97.6 F 98.2 F Pulse Rate Pulse Rate [Left Brachial] 88 79 87 Respiratory Rate 20 18 22 Blood Pressure [Left Arm] 165/74 Blood Pressure [Right Arm] 138/74 147/73 O2 Sat by Pulse Oximetry 95 95 98 Oxygen Delivery Method Heated High Flow NC Heated High Flow NC Heated High Flow NC Oxygen Flow Rate 50 50 FIO2% 40 40 40 08/07/23 19:00 08/07/23 23:46 08/07/23 20:45 Temperature 97.9 F Pulse Rate Pulse Rate [Left Brachial] 72 Respiratory Rate 22 Blood Pressure [Left Arm] Blood Pressure [Right Arm] 145/66 O2 Sat by Pulse Oximetry 96 Oxygen Delivery Method Heated High Flow NC Heated High Flow NC Heated High Flow NC Oxygen Flow Rate 50 50 FIO2% 60 40 40 08/07/23 20:42 08/08/23 04:00 08/08/23 08:27 Temperature 98.3 F Pulse Rate 79 Pulse Rate [Left Brachial] 66 Respiratory Rate 22 22 Blood Pressure [Left Arm] Blood Pressure [Right Arm] 136/67 O2 Sat by Pulse Oximetry 96 97 Oxygen Delivery Method Heated High Flow NC Heated High Flow NC Oxygen Flow Rate 50 50 FIO2% 40 40 08/08/23 08:29 08/08/23 08:00 08/08/23 08:58 Temperature 98.4 F Pulse Rate 79 Pulse Rate [Left Brachial] 69 Respiratory Rate 24 Blood Pressure [Left Arm] Blood Pressure [Right Arm] 128/82 O2 Sat by Pulse Oximetry 97 97 Oxygen Delivery Method Heated High Flow NC Heated High Flow NC Oxygen Flow Rate 50 FIO2% 40 60 08/08/23 12:00 08/08/23 13:19 08/08/23 16:00 Temperature 97.4 F L 97.5 F L Pulse Rate 61 Pulse Rate [Left Brachial] 78 96 H Respiratory Rate 24 22 Blood Pressure [Left Arm] 141/62 129/70 Blood Pressure [Right Arm] O2 Sat by Pulse Oximetry 94 L 97 95 Oxygen Delivery Method Nasal Cannula Nasal Cannula Oxygen Flow Rate FIO2% 08/08/23 19:25 08/08/23 19:25 08/08/23 19:00 Temperature 97.9 F 97.9 F Pulse Rate Pulse Rate [Left Brachial] 87 87 Respiratory Rate 20 20 Blood Pressure [Left Arm] 132/73 132/73 Blood Pressure [Right Arm] O2 Sat by Pulse Oximetry 94 L 94 L Oxygen Delivery Method Nasal Cannula Room Air Nasal Cannula Oxygen Flow Rate 4 4 FIO2% 08/08/23 20:25 08/08/23 20:26 08/08/23 23:53 Temperature 98.2 F Pulse Rate 79 Pulse Rate [Left Brachial] 86 Respiratory Rate 21 Blood Pressure [Left Arm] 139/61 Blood Pressure [Right Arm] O2 Sat by Pulse Oximetry 95 96 Oxygen Delivery Method Nasal Cannula Room Air Oxygen Flow Rate 4 FIO2% 36 08/09/23 04:00 08/09/23 08:28 08/09/23 08:00 Temperature 97.8 F 98 F Pulse Rate Pulse Rate [Left Brachial] 82 68 Respiratory Rate 22 18 Blood Pressure [Left Arm] 141/79 Blood Pressure [Right Arm] 173/77 O2 Sat by Pulse Oximetry 94 L 97 Oxygen Delivery Method Room Air Nasal Cannula Nasal Cannula Oxygen Flow Rate 4 4 FIO2% 08/09/23 08:49 08/09/23 08:50 08/09/23 10:14 Temperature Pulse Rate 57 L Pulse Rate [Left Brachial] Respiratory Rate Blood Pressure [Left Arm] Blood Pressure [Right Arm] O2 Sat by Pulse Oximetry 97 Oxygen Delivery Method Nasal Cannula Nasal Cannula Oxygen Flow Rate 4 2 FIO2% 36 28 08/09/23 12:00 08/09/23 16:00 08/09/23 19:53 Temperature 97.8 F 98.1 F 98.0 F Pulse Rate Pulse Rate [Left Brachial] 78 92 H 96 H Respiratory Rate 18 18 23 Blood Pressure [Left Arm] 143/64 127/65 166/75 Blood Pressure [Right Arm] O2 Sat by Pulse Oximetry 93 L 95 90 L Oxygen Delivery Method Nasal Cannula Room Air Room Air Oxygen Flow Rate 4 FIO2% 08/09/23 19:00 08/09/23 21:03 08/10/23 00:00 Temperature 98.1 F Pulse Rate Pulse Rate [Left Brachial] 82 Respiratory Rate 20 Blood Pressure [Left Arm] 137/68 Blood Pressure [Right Arm] O2 Sat by Pulse Oximetry 90 L Oxygen Delivery Method Room Air Nasal Cannula Room Air Oxygen Flow Rate 2 FIO2% 28 08/10/23 04:00 08/10/23 07:00 08/10/23 08:00 Temperature 97.7 F 98.0 F Pulse Rate Pulse Rate [Left Brachial] 69 67 Respiratory Rate 21 18 Blood Pressure [Left Arm] 166/78 149/75 Blood Pressure [Right Arm] O2 Sat by Pulse Oximetry 96 92 L Oxygen Delivery Method Room Air Room Air Room Air Oxygen Flow Rate FIO2% 08/10/23 08:03 08/10/23 08:36 08/10/23 08:36 Temperature Pulse Rate Pulse Rate [Left Brachial] Respiratory Rate Blood Pressure [Left Arm] Blood Pressure [Right Arm] O2 Sat by Pulse Oximetry 95 88 L Oxygen Delivery Method Room Air Room Air Oxygen Flow Rate 2 FIO2% 28 Labs: Laboratory Last Values WBC 7.4 X10^3/uL (3.6-10.0) 08/10/23 05:29 RBC 3.81 X10^6/uL (4.7-6.0) L 08/10/23 05:29 Hgb 11.4 g/dL (13.5-18.0) L 08/10/23 05:29 Hct 34.5 % (42.0-54.0) L 08/10/23 05:29 MCV 90.5 fL (80.0-100.0) 08/10/23 05:29 MCH 29.8 pg (27.0-34.0) 08/10/23 05:29 MCHC 33.0 g/dL (33.0-35.0) 08/10/23 05:29 RDW 13.7 % (11.6-16.5) 08/10/23 05:29 Plt Count 316 X10^3/uL (150.0-450.0) 08/10/23 05:29 Plt Count Comment Adequate (ADEQUATE) 08/10/23 05:29 MPV 8.1 fL (7.4-11.0) 08/10/23 05:29 Neut % (Auto) 94.5 % (42.0-75.0) H 08/10/23 05:29 Lymph % (Auto) 3.5 % (21.0-51.0) L 08/10/23 05:29 [place] % (Auto) 1.8 % (0.0-13.0) 08/10/23 05:29 Eos % (Auto) 0.1 % (0.9-2.9) L 08/10/23 05:29 Baso % (Auto) 0.1 % (0.2-1.0) L 08/10/23 05:29 Neut # (Auto) 7.0 x10^3/uL (2.2-4.8) H 08/10/23 05:29 Lymph # (Auto) 0.3 X10^3/uL (1.3-2.9) L 08/10/23 05:29 [place] # (Auto) 0.1 x10^3/uL (0.3-0.8) L 08/10/23 05:29 Eos # (Auto) 0.0 x10^3/uL (0.0-0.2) 08/10/23 05:29 Baso # (Auto) 0.0 X10^3/uL (0.0-0.1) 08/10/23 05:29 Absolute Nucleated RBC 0.0 /100WBC 08/10/23 05:29 Total Counted 100 08/10/23 05:29 Neutrophils % (Manual) 97 % (39-76) H 08/10/23 05:29 Band Neutrophils % 2 % (0-10) 08/07/23 05:37 Lymphocytes % (Manual) 3 % (13-43) L 08/10/23 05:29 Monocytes % (Manual) 2 % (4-9) L 08/09/23 05:24 Plt Clumps, EDTA Rare 08/02/23 17:50 Plt Morphology Comment Normal (NORMAL) 08/10/23 05:29 RBC Morphology Normal (NORMAL) 08/10/23 05:29 Sample Site Lr 08/02/23 20:27 ABG pH 7.480 (7.35-7.45) H 08/02/23 20:27 ABG pCO2 35.0 mmHg (35.0-45.0) 08/02/23 20: ABG pO2 73.0 mmHg (80.0-100.0) L 08/02/23 20: ABG HCO3 26.1 mmol/L (22-26) H 08/02/23 20:27 ABG O2 Saturation 96.0 % (90-100) 08/02/23 20: ABG Base Excess 2.8 mmol/L (-2.0-2.0) H 08/02/23 20: Mark Test Pos 08/02/23 20: A-a Gradient 240.0 mmHg 08/02/23 20: FiO2 50.0 08/02/23 20:27 Blood Gas Comments Taisha well ae 08/02/23 20:27 Sodium 141 mmol/L (136-145) 08/10/23 05:29 Corrected Sodium 144 mmol/L (136-145) 08/10/23 05:29 Potassium 3.9 mmol/L (3.5-5.1) 08/10/23 05:29 Chloride 101 mmol/L (98-107) 08/10/23 05:29 Carbon Dioxide 35.9 mmol/L (21-32) H 08/10/23 05:29 BUN 14 mg/dL (7-18) 08/10/23 05:29 Creatinine 1.01 mg/dL (0.70-1.30) 08/10/23 05:29 Est GFR (MDRD) Af Amer > 60 (>60) 08/10/23 05:29 Est GFR (MDRD) Non-Af > 60 (>60) 08/10/23 05:29 Glucose 217 mg/dL (65-99) H 08/10/23 05:29 POC Glucose (mg/dL) 227 mg/dL (65-99) H 08/10/23 05:01 Lactic Acid 1.4 mmol/L (0.4-2.0) 08/02/23 19:28 Calcium 8.6 mg/dL (8.5-10.1) 08/10/23 05:29 Corrected Calcium 9.6 mg/dL (8.5-10.1) 08/10/23 05:29 Magnesium 2.2 mg/dL (2.0-2.9) 08/05/23 05:30 Total Bilirubin 0.30 mg/dL (0.2-1.0) 08/10/23 05:29 AST 16 Units/L (15-37) 08/10/23 05:29 ALT 27 Units/L (12-78) 08/10/23 05:29 Alkaline Phosphatase 102 Units/L (46-116) 08/10/23 05:29 Creatine Kinase 176 Units/L (39-308) 08/02/23 17:50 Troponin I High Sens 8.8 ng/L (4.0-60.0) 08/02/23 17:50 B-Natriuretic Peptide 75.1 pg/mL (0-79) 08/04/23 05:33 Total Protein 6.3 g/dL (6.4-8.2) L 08/10/23 05:29 Albumin 2.7 g/dL (3.4-5.0) L 08/10/23 05:29 Globulin 3.6 g/dL (2.5-4.5) 08/10/23 05:29 Albumin/Globulin Ratio 0.8 Ratio (1.1-2.1) L 08/10/23 05:29 Specimen Type Catherized urine 08/02/23 19:15 Urine Color Straw (YELLOW) 08/02/23 19:15 Urine Appearance Clear (CLEAR) 08/02/23 19:15 Urine pH 7.0 (5.0 - 8.0) 08/02/23 19:15 Ur Specific [place] 1.015 (1.000-1.030) 08/02/23 19:15 Urine Protein Negative (NEGATIVE) 08/02/23 19:15 Urine Glucose (UA) Negative (NEGATIVE) 08/02/23 19:15 Urine Ketones Negative (NEGATIVE) 08/02/23 19:15 Urine Blood 1+ (NEGATIVE) 08/02/23 19:15 Urine Nitrite Negative (NEGATIVE) 08/02/23 19:15 Urine Bilirubin Negative (NEGATIVE) 08/02/23 19:15 Urine Urobilinogen Normal (NORMAL) 08/02/23 19:15 Ur Leukocyte Esterase Negative (NEGATIVE) 08/02/23 19:15 Urine RBC 0-2 /HPF (0-3) 08/02/23 19:15 Urine WBC None seen /HPF (0-5) 08/02/23 19:15 Ur Squamous Epith Cells Rare /HPF (NEGATIVE) 08/02/23 19:15 Urine Bacteria Negative /HPF (NEGATIVE) 08/02/23 19:15 Ur Culture Indicated? No/not indicated 08/02/23 19:15 SARS-CoV-2 (PCR) Negative (NEGATIVE) 08/02/23 19:16 Influenza Type A (PCR) Negative (NEGATIVE) 08/02/23 19:16 Influenza Type B (PCR) Negative (NEGATIVE) 08/02/23 19:16 RSV (PCR) Negative (NEGATIVE) 08/02/23 19:16 Resp Viral Panel (PCR) See scanned report 08/02/23 20:45 Reason For Visit: BILATERAL PNEUMONIA Discharge Date Discharge Date: 08/10/23 Discharge Diagnosis All Active Problems (Updated 08/07/23 @ 09:40 by Sol Tellez) ILD (interstitial lung disease) (Acute) Acute respiratory failure with hypoxia (Acute) CHF exacerbation (Acute) Altered mental status (Acute) TIA (transient ischemic attack) (Acute) Depression (Chronic) Hyperlipidemia (Chronic) Hypothyroidism (Chronic) Alzheimer's dementia without behavioral disturbance (Chronic) GERD (gastroesophageal reflux disease) (Chronic) Weakness (Acute) Acute labyrinthitis (Acute) Bilateral pneumonia (Acute) Plan of Treatment: Continue with present treatment and follow up plan. Pt is to keep follow up appointment as instructed and take medications as ordered. Discharge Medications Discharge Medications: morphine Allergy (Verified 06/05/17 16:17) lorazepam [From Ativan] Adverse Reaction (Verified 08/03/23 01:27) CONTINUE taking the following medications aspirin 325 mg tablet,delayed release 325 mg PO QDAY 08/02/23 [History] benzonatate 200 mg capsule 200 mg PO TID PRN cough 08/02/23 [History] clopidogrel 75 mg tablet 75 mg PO QDAY 08/02/23 [History] diphenoxylate-atropine 2.5 mg-0.025 mg tablet 1 tab PO BID 08/02/23 [History] escitalopram oxalate 20 mg tablet 20 mg PO QDAY 08/02/23 [History] hydrocodone 10 mg-acetaminophen 325 mg tablet 1 tab PO QID 08/02/23 [History] lansoprazole 30 mg capsule,delayed release 30 mg PO BID 08/02/23 [History] pravastatin 40 mg tablet 40 mg PO QPM 08/02/23 [History] pregabalin 300 mg capsule 300 mg PO QID 08/02/23 [History] New Prescriptions levofloxacin 750 mg tablet 750 mg PO QDAY 5 days #5 tabs 08/10/23 [Rx] prednisone 20 mg tablet 40 mg PO QDAY #10 tabs 08/10/23 [Rx] Discharge Disposition Assessment: No distress noted. Discharge Plan Discharge Plan Hospital Course: Patient is a 77 year old male admitted for pneumonia and acute respiratory failure. His hospital/treatment course included: Wean O2 as tolerated, IV antibiotics Fortaz and Azithromycin, IV steroids, bronchodilators, cough medications. Smart vest. IV lasix 40mg daily, I&Os. Electrolytes repleted per protocol. Pt responded to treatments and symptoms significantly improved. Pt will require home oxygen of 2L nasal cannula. Pt discharged in stable condition, rx levaquin and prednisone. Instructed to follow up with pcp in 1 week. Patient Disposition: HOME HEALTH SERVICE Condition: Stable Health Concerns: Post Hospitalization: new medications and changes needed to prevent readmission or further decline. Pt educated and given instructions on all concerns. Care Plan Goals: Problem: Infection Goal: Temperature within normal limits. Resolved infection. Instructions: Follow provided instructions. Follow up with primary physician as directed. Contact primary care physician or report to the closest Emergency Room if condition worsens. Plan of Treatment: Continue with present treatment and follow up plan. Pt is to keep follow up appointment as instructed and take medications as ordered. Assessment: No distress noted. Prescriptions: New prednisone 20 mg Tablet 40 mg PO QDAY Qty: 10 0RF levofloxacin 750 mg Tablet 750 mg PO QDAY 5 Days Qty: 5 0RF Continued pravastatin 40 mg tablet 40 mg PO QPM benzonatate 200 mg capsule 200 mg PO TID PRN (Reason: cough) diphenoxylate-atropine 2.5-0.025 mg tablet 1 tab PO BID clopidogrel 75 mg tablet 75 mg PO QDAY hydrocodone-acetaminophen 10-325 mg tablet 1 tab PO QID aspirin 325 mg tablet,delayed release (DR/EC) 325 mg PO QDAY lansoprazole 30 mg capsule,delayed release(DR/EC) 30 mg PO BID escitalopram oxalate 20 mg tablet 20 mg PO QDAY pregabalin 300 mg capsule 300 mg PO QID levofloxacin 750 mg tablet 750 mg PO QDAY 5 Days Qty: 5 0RF Follow ups/Referrals Follow ups/Referrals: Cert[facility] [Other] (Order sent for home oxygen.) [place] [facility] [Other] (Order sent at discharge) Elier Medina [Primary Care Provider] - 08/14/23 9:00 am Instructions Instructions: Heart Failure, Self-Care, [id number], Weakness, [id number], Home Oxygen Use, Adult, Acute Respiratory Failure, Adult, Community-Acquired Pneumonia, Adult, [id number] Stand Alone Forms: Post Hospital Follow Up Care
== END 2023-08-10 10:45 | disposition home health service (06) | DRG 193 ==
LOC: ER 17:33 → MED/SURG 20:16
PROVIDERS: ADMIT Internal Medicine; ATTEND Internal Medicine
DX: R06.02 Shortness of breath; E11.65 Type 2 diabetes mellitus with hyperglycemia; I50.9 Heart failure, unspecified; R53.1 Weakness; K21.9 Gastro-esophageal reflux disease without esophagitis; E78.2 Mixed hyperlipidemia; K44.9 Diaphragmatic hernia without obstruction or gangrene; J96.01 Acute respiratory failure with hypoxia; Z20.822 Contact with and (suspected) exposure to COVID-19; J18.8 Other pneumonia, unspecified organism; R00.0 Tachycardia, unspecified; E03.8 Other specified hypothyroidism

== ENCOUNTER 2023-08-24 08:28 | Inpatient (IN) ==
--- NOTE | 2023-08-24 08:52 | DR.ABDMALE ---
HPI Time seen Time Seen by Provider: 08/24/23 08:51 Complaint Chief Complaint Doctors Comments: Change in mental status since this morning and low abdominal pain.Did a stroke alert. PMH PMH Past Medical History: Alzheimers, Arthritis, Dementia, Depression and GERD Past Surgical History: Yes Surgical History: Appendectomy and Cholecystectomy Family History Family Medical History: Hypertension Social History Do you use any recreational Drugs:: No ROS Review of Systems Constitutional: Other (change in mental status and low abdominal pain) Eyes: No Symptoms Reported ENTM: No Symptoms Reported Respiratoy: No Symptoms Reported Cardiovascular: No Symptoms Reported Gastrointestinal/Abdominal: Abdominal Pain (suprapubic and llq) Genitourinary: No Symptoms Reported Neurological: Other (change in ment al status) Musculoskeletal: No Symptoms Reported Integumentary: No Symptoms Reported Hematologic/Lymphatic: No Symptoms Reported Endocrine: No Symptoms Reported Psychiatric: No Symptoms Reported PE Vital Signs Vital Signs: Temp Pulse Resp BP Pulse Ox O2 Del Method 08/24/23 11:00 141/63 08/24/23 11:00 99 H 100 08/24/23 10:45 97 H 99 08/24/23 10:32 97 H 98 08/24/23 10:31 120/56 08/24/23 10:28 101 H 100 08/24/23 10:15 96 H 100 08/24/23 10:08 94 L 08/24/23 10:08 133/88 08/24/23 09:47 95 H 94 L 08/24/23 09:40 102 H 100 08/24/23 09:40 136/61 08/24/23 09:30 126/59 08/24/23 09:30 96 H 99 08/24/23 09:24 98 H 98 08/24/23 09:24 134/60 08/24/23 09:16 108 H 94 L 08/24/23 08:32 111 H 86 L 08/24/23 08:29 98.7 F 122 H 20 180/80 87 L Room Air General Limitations: Physical Limitation (pain upon ambulation) General Appearance: In Distress (moderate distress) Head Head Exam: Normal Inspection and Atraumatic Eyes Eye exam: Normal Appearance and PERRL Neck Neck Exam: Normal Inspection, Full ROM and Trachea Midline Chest Chest Inspection: Normal Inspection and Symmetric Chest Wall Rise Respiratory Respiratory Exam: Normal Lung Sounds Bilat Respiratory Exam: Bilateral: Clear to Auscultation Cardiovascular Cardiovascular Exam: Normal Rhythm Abdominal Exam Abdominal Exam: Normal Inspection, Normal Bowel Sounds and Tenderness (suprapubic and llq) Rectal Rectal Exam: Deferred Back Back Exam: Normal Inspection Extremeties Extremities Exam: Normal Inspection Neurologic Neurological Exam: Other (disoriented but answers questions) Psychiatric Psychiatric Exam: Depressed MDM Differential Diagnosis Differential Diagnosis: Bowel Obstruction, Diverticular disease, Inflammatory BD, Urinary tract infection, Urolithiasis and Other (comments) (cva) COURSE Treatment Treatment: This patient had the stroke protocol performed and I spoke to Dr. Vera, the neurologist and he stated the patient should get the CT of brain CTA of brain and also the carotid CTA he did get those studies done that was negative for any acute bleed there was no blockages in the carotid studies there was no evidence for occlusion or stenosis. We did do a CT of his abdomen pelvis since he was having abdominal pain and the results were that he did have a perforation most probably due to diverticulitis with perforation if there was gas in the peritoneum. Consult was made with Dr. Waters at 1140 and he stated he will admit the patient for further evaluation and treatment for the ruptured the disc is there. We did give the patient 3.375 grams of Zosyn and we made the patient n.p.o. Dr. Waters came to the emergency room to further evaluate the patient. ROR Labs Reviewed Laboratory Results Reviewed?: Yes 08/24/23 08:55 08/24/23 08:55 Laboratory: WBC 9.7 X10^3/uL (3.6-10.0) 08/24/23 08:55 RBC 4.27 X10^6/uL (4.7-6.0) L 08/24/23 08:55 Hgb 12.7 g/dL (13.5-18.0) L 08/24/23 08:55 Hct 38.0 % (42.0-54.0) L 08/24/23 08:55 MCV 89.0 fL (80.0-100.0) 08/24/23 08:55 MCH 29.8 pg (27.0-34.0) 08/24/23 08:55 MCHC 33.5 g/dL (33.0-35.0) 08/24/23 08:55 RDW 14.0 % (11.6-16.5) 08/24/23 08:55 Plt Count 143 X10^3/uL (150.0-450.0) L 08/24/23 08:55 MPV 8.6 fL (7.4-11.0) 08/24/23 08:55 Neut % (Auto) 86.7 % (42.0-75.0) H 08/24/23 08:55 Lymph % (Auto) 5.1 % (21.0-51.0) L 08/24/23 08:55 [place] % (Auto) 2.7 % (0.0-13.0) 08/24/23 08:55 Eos % (Auto) 4.8 % (0.9-2.9) H 08/24/23 08:55 Baso % (Auto) 0.7 % (0.2-1.0) 08/24/23 08:55 Neut # (Auto) 8.4 x10^3/uL (2.2-4.8) H 08/24/23 08:55 Lymph # (Auto) 0.5 X10^3/uL (1.3-2.9) L 08/24/23 08:55 [place] # (Auto) 0.3 x10^3/uL (0.3-0.8) 08/24/23 08:55 Eos # (Auto) 0.5 x10^3/uL (0.0-0.2) H 08/24/23 08:55 Baso # (Auto) 0.1 X10^3/uL (0.0-0.1) 08/24/23 08:55 Absolute Nucleated RBC 0.1 /100WBC 08/24/23 08:55 PT 14.1 SECONDS (11.8-14.3) 08/24/23 08:55 INR Target Range - 08/24/23 08:55 INR 1.11 (0.8-1.3) 08/24/23 08:55 APTT 27.5 SECONDS (22.9-36.5) 08/24/23 08:55 PTT Comment - 08/24/23 08:55 Fibrinogen 420 mg/dL (239-489) 08/24/23 08:55 Sodium 136 mmol/L (136-145) 08/24/23 08:55 Corrected Sodium 137 mmol/L (136-145) 08/24/23 08:55 Potassium 4.4 mmol/L (3.5-5.1) 08/24/23 08:55 Chloride 98 mmol/L (98-107) 08/24/23 08:55 Carbon Dioxide 33.8 mmol/L (21-32) H 08/24/23 08:55 BUN 9 mg/dL (7-18) 08/24/23 08:55 Creatinine 1.07 mg/dL (0.70-1.30) 08/24/23 08:55 Est GFR (MDRD) Af Amer > 60 (>60) 08/24/23 08:55 Est GFR (MDRD) Non-Af > 60 (>60) 08/24/23 08:55 Glucose 155 mg/dL (65-99) H 08/24/23 08:55 POC Glucose (mg/dL) 120 mg/dL (65-99) H 08/24/23 08:46 Calcium 8.7 mg/dL (8.5-10.1) 08/24/23 08:55 Corrected Calcium TNP 08/24/23 08:55 Total Bilirubin 0.80 mg/dL (0.2-1.0) 08/24/23 08:55 AST 19 Units/L (15-37) 08/24/23 08:55 ALT 17 Units/L (12-78) 08/24/23 08:55 Alkaline Phosphatase 78 Units/L (46-116) 08/24/23 08:55 Creatine Kinase 68 Units/L (39-308) 08/24/23 08:55 Troponin I High Sens 6.8 ng/L (4.0-60.0) 08/24/23 08:55 Total Protein 6.9 g/dL (6.4-8.2) 08/24/23 08:55 Albumin 3.4 g/dL (3.4-5.0) 08/24/23 08:55 Globulin 3.5 g/dL (2.5-4.5) 08/24/23 08:55 Albumin/Globulin Ratio 1.0 Ratio (1.1-2.1) L 08/24/23 08:55 Triglycerides 62 mg/dL (0-150) 08/24/23 08:55 Cholesterol 113 mg/dL (0-200) 08/24/23 08:55 LDL Cholesterol, Calc 43 mg/dL (0-100) 08/24/23 08:55 HDL Cholesterol 58 mg/dL (40-60) 08/24/23 08:55 Cholesterol/HDL Ratio 1.9 (0.0-5.0) 08/24/23 08:55 Specimen Type Clean catch urine 08/24/23 09:09 Urine Color Pale yellow (YELLOW) 08/24/23 09:09 Urine Appearance Clear (CLEAR) 08/24/23 09:09 Urine pH 6.0 (5.0 - 8.0) 08/24/23 09:09 Ur Specific [place] 1.015 (1.000-1.030) 08/24/23 09:09 Urine Protein Negative (NEGATIVE) 08/24/23 09:09 Urine Glucose (UA) Negative (NEGATIVE) 08/24/23 09:09 Urine Ketones Negative (NEGATIVE) 08/24/23 09:09 Urine Blood 2+ (NEGATIVE) 08/24/23 09:09 Urine Nitrite Negative (NEGATIVE) 08/24/23 09:09 Urine Bilirubin Negative (NEGATIVE) 08/24/23 09:09 Urine Urobilinogen Normal (NORMAL) 08/24/23 09:09 Ur Leukocyte Esterase Negative (NEGATIVE) 08/24/23 09:09 Urine RBC 0-2 /HPF (0-3) 08/24/23 09:09 Urine WBC 0-2 /HPF (0-5) 08/24/23 09:09 Ur Squamous Epith Cells Rare /HPF (NEGATIVE) 08/24/23 09:09 Urine Bacteria Trace /HPF (NEGATIVE) 08/24/23 09:09 Urine Mucus Rare /HPF (NEGATIVE) 08/24/23 09:09 Ur Culture Indicated? No/not indicated 08/24/23 09:09 Opioid Opioid Risk Tool Age (Hammad box if 16-45): No History of Preadolescent Sexual Abuse: No Total: 0 Total Score Risk Category: Low Risk Copyright: Phil STONE predicting aberrant behaviors Discharge Plan Diagnosis Discharge Problem: Perforated diverticulum of large intestine Discharge Plan Patient Disposition: ADMITTED INPATIENT Condition: Stable Prescriptions: No Action pravastatin 40 mg tablet 40 mg PO QPM benzonatate 200 mg capsule 200 mg PO TID PRN (Reason: cough) diphenoxylate-atropine 2.5-0.025 mg tablet 1 tab PO BID clopidogrel 75 mg tablet 75 mg PO QDAY hydrocodone-acetaminophen 10-325 mg tablet 1 tab PO QID aspirin 325 mg tablet,delayed release (DR/EC) 325 mg PO QDAY lansoprazole 30 mg capsule,delayed release(DR/EC) 30 mg PO BID escitalopram oxalate 20 mg tablet 20 mg PO QDAY pregabalin 300 mg capsule 300 mg PO QID prednisone 20 mg Tablet 40 mg PO QDAY Qty: 10 0RF levofloxacin 750 mg tablet 750 mg PO QDAY 5 Days Qty: 5 0RF Health Concerns: Post Hospitalization: new medications and changes needed to prevent readmission or further decline. Pt educated and given instructions on all concerns. Plan of Treatment: Continue with present treatment and follow up plan. Pt is to keep follow up appointment as instructed and take medications as ordered. Orders to Discharge Patient Discharge Orders: Transfer (Routine); Ordered 08/24/23 Ordered By: Jose Clifford Follow ups/Referrals Follow ups/Referrals: Elier Medina [Primary Care Provider] - 3 days Instructions Stand Alone Forms: Post Hospital Follow Up Care
[2023-08-24] MEDS: NS 1,000 ML IV 1,000 ML IV SCH (09:02)
[2023-08-24 09:12] LABS: BASOPHILS # (AUTO) 0.1 X10^3/uL (0.0-0.1); BASOPHILS % (AUTO) 0.7 % (0.2-1.0); EOSINOPHILS # (AUTO) 0.5 x10^3/uL (0.0-0.2); EOSINOPHILS % (AUTO) 4.8 % (0.9-2.9); HEMOGLOBIN 12.7 g/dL (13.5-18.0); LYMPHOCYTES # (AUTO) 0.5 X10^3/uL (1.3-2.9); LYMPHOCYTES % (AUTO) 5.1 % (21.0-51.0); MEAN CORPUSCULAR HEMOGLOBIN 29.8 pg (27.0-34.0); MEAN CORPUSCULAR HGB CONC 33.5 g/dL (33.0-35.0); MEAN PLATELET VOLUME 8.6 fL (7.4-11.0); MONOCYTES # (AUTO) 0.3 x10^3/uL (0.3-0.8); MONOCYTES % (AUTO) 2.7 % (0.0-13.0); NEUTROPHILS # (AUTO) 8.4 x10^3/uL (2.2-4.8); NEUTROPHILS % (AUTO) 86.7 % (42.0-75.0); PLATELET COUNT 143 X10^3/uL (150.0-450.0); RED BLOOD COUNT 4.27 X10^6/uL (4.7-6.0); WHITE BLOOD COUNT 9.7 X10^3/uL (3.6-10.0)
[2023-08-24 09:15] LABS: INR 1.11 (0.8-1.3)
[2023-08-24 09:24] LABS: ALANINE AMINOTRANSFERASE 17 Units/L (12-78); ALBUMIN 3.4 g/dL (3.4-5.0); ALKALINE PHOSPHATASE 78 Units/L (46-116); ASPARTATE AMINO TRANSFERASE 19 Units/L (15-37); BLOOD UREA NITROGEN 9 mg/dL (7-18); CALCIUM 8.7 mg/dL (8.5-10.1); CARBON DIOXIDE 33.8 mmol/L (21-32); CHLORIDE 98 mmol/L (98-107); CHOL/HDL RATIO 1.9 (0.0-5.0); CHOLESTEROL 113 mg/dL (0-200); COR NA(FOR HYPERGLY) 137 mmol/L (136-145); CREATINE KINASE 68 Units/L (39-308); CREATININE 1.07 mg/dL (0.70-1.30); GLUCOSE 155 mg/dL (65-99); HDL CHOLESTEROL 58 mg/dL (40-60); POTASSIUM 4.4 mmol/L (3.5-5.1); SODIUM 136 mmol/L (136-145); TOTAL PROTEIN 6.9 g/dL (6.4-8.2); TRIGLYCERIDES 62 mg/dL (0-150); eGFR NON BLACK RACES > 60 (>60)
--- NOTE | 2023-08-24 09:32 | EKG ---
Test Reason : poss stroke Blood Pressure : */* mmHG Vent. Rate : 105 BPM Atrial Rate : 105 BPM P-R Int : 190 ms QRS Dur : 86 ms QT Int : 312 ms P-R-T Axes : 5 5 41 degrees QTc Int : 412 ms Sinus tachycardia Minimal voltage criteria for LVH, may be normal variant ( R in aVL ) Borderline ECG When compared with ECG of 02-AUG-2023 17:50, Nonspecific T wave abnormality has replaced inverted T waves in Inferior leads Confirmed by Vance Chambers MD ([id number]) on 08/24/2023 10:23:47 AM Referred By: Confirmed By: Vance Chambers MD
[2023-08-24 10:01] LABS: BILIRUBIN,URINE NEGATIVE (NEGATIVE); BLOOD/HEMOGLOBIN,URINE 2+ (NEGATIVE); GLUCOSE, URINE NEGATIVE (NEGATIVE); KETONES,URINE NEGATIVE (NEGATIVE); LEUKOCYTE ESTERASE ,URINE NEGATIVE (NEGATIVE); NITRITES,URINE NEGATIVE (NEGATIVE); PROTEIN,URINE NEGATIVE (NEGATIVE); UROBILINOGEN,URINE NORMAL (NORMAL)
[2023-08-24 10:02] LABS: APPEARANCE,URINE CLEAR (CLEAR); COLOR,URINE PALE YELLOW (YELLOW)
[2023-08-24 10:10] LABS: BACTERIA,URINE TRACE /HPF (NEGATIVE); RBC,URINE 0-2 /HPF (0-3); SQUAMOUS EPITHELIAL CELL,UR RARE /HPF (NEGATIVE)
--- NOTE | 2023-08-24 10:35 | CT ---
EXAM: BRAIN W/O CON HISTORY: POSS STROKE; COMPARISON: 04/28/2021 TECHNIQUE: CT of the head obtained without IV contrast. Sagittal and coronal reformatted images were performed. Dose reduction techniques including Automated Exposure Control (AEC) and adjustment of mA and kV were utilized. Motion limited exam. FINDINGS: No evidence of acute territorial infarct. No acute intracranial hemorrhage. No evidence of intracrani al mass or midline shift. No hydrocephalus. No abnormal intra or extra-axial fluid collections. Chron ic small vessel ischemic changes and global volume loss with commensurate ventricular dilatation. The calvaria is intact. The bilateral mastoid air cells and visualized paranasal sinuses are well pne umatized. The bilateral orbits are unremarkable. IMPRESSION: No acute intracranial findings. THIS IS AN ELECTRONICALLY VERIFIED FINAL REPORT 08/24/2023 10:23 AM - Electronically signed by Mikey Maurer MD
--- NOTE | 2023-08-24 10:42 | TELESTROKE ---
[facility] Consult Date of Consult Date of Exam: 08/24/23 Time of Arrival to the ED: 08:28 Allergies Allergies Allergy/AdvReac Type Severity Reaction Status Date / Time morphine Allergy Verified 06/05/17 16:17 lorazepam [From Ativan] AdvReac Verified 08/03/23 01:27 Vital Signs Vital Signs: Temp Pulse Resp BP Pulse Ox O2 Del Method 08/24/23 10:15 96 H 100 08/24/23 10:08 94 L 08/24/23 10:08 133/88 08/24/23 09:47 95 H 94 L 08/24/23 09:40 102 H 100 08/24/23 09:40 136/61 08/24/23 09:30 126/59 08/24/23 09:30 96 H 99 08/24/23 09:24 98 H 98 08/24/23 09:24 134/60 08/24/23 09:16 108 H 94 L 08/24/23 08:32 111 H 86 L 08/24/23 08:29 98.7 F 122 H 20 180/80 87 L Room Air History of Present Illness History of Present Illness: [facility] Tele[facility] Consult Services Patient Name:Bj Kothari Date of :1945 Identification Number: Date of Service:08/24/2023 08:44:21 Diagnosis:R46.4 - Slowness and poor responsiveness Impression: 77 yo M with h/o interstitial lung disease, CHF, depression, HLD, HTN, Alzheimer's dementia, GERD, prior TIA, presenting with decreased responsiveness and generalized weakness, though seems at least in the arms to be weaker on the L than the R. He reports lower abdominal/genital pain. Recommend workup for whether there is a focal cause of pain with encephalopathy; if no other clear source then recommend further neuroimaging as well given concern for L sided weakness greater than R. Not a thrombolytic candidate due to being out of the window. Advanced imaging pending. Case discussed with ED Dr. Clifford by phone. Our recommendations are outlined below. Recommendations: Stroke/Telemetry Floor Neuro Checks Bedside Swallow Eval DVT Prophylaxis IV Fluids, Normal Saline Head of Bed 30 Degrees Euglycemia and Avoid Hyperthermia (PRN Acetaminophen) Sign Out: Discussed with Emergency Department Provider Advanced Imaging:Advanced imaging has been ordered. Results pending. Metrics: Last Known Well: 08/23/2023 22:00:00 [facility] Notification Time: 08/24/2023 08:44:21 Arrival Time: 08/24/2023 08:28:00 Stamp Time: 08/24/2023 08:44:21 Initial Response Time: 08/24/2023 08:44:53Symptoms: decreased responsiveness and generalized weakness. Initial patient interaction: 08/24/2023 08:45:49 NIHSS Assessment Completed: 08/24/2023 08:54:18Patient is not a candidate for Thrombolytic. Thrombolytic Medical Decision: 08/24/2023 08:54:20Patient was not deemed c andidate for Thrombolytic because of following reasons: Last Well Known Above 4.[address] head showed no acute hemorrhage or acute core infarct. I personally Reviewed the CT Head and it Showed No obvious new stroke or bleed Primary Provider Notified of Diagnostic Impression and Management Plan on: 08/24/2023 09:13:35 History of Present Illness:Patient is a 77 year old Male. Patient was brought by private transportation with symptoms of decreased responsiveness and generalized weakness. 77 yo M with h/o interstitial lung disease, CHF, depression, HLD, HTN, Alzheimer's dementia, GERD, prior TIA, presenting with decreased responsiveness and generalized weakness. LKN 2200 last night when last saw him. This morning he got up before his and was cooking breakfast. He yelled out to his that he needed some help. He thought he had a kidney stone - had pain in his lower abdomen. He was unable to get out of the truck here in the ED. Never happened before. In the ED he is tachycardic to 120, hypertensive to 180/80, and was initially satting 84% as he drove here without oxygen but came up to 97% with oxygen. He was noted to have some L sided weakness but can't lift either leg and he's very sluggish. He reports that he is in pain in his male parts. He was just recently hospitalized with PNA. No other recent illness. The only new medication was cipro per . Past Medical History: Hypertension Hyperlipidemia Othere PMH: interstitial lung disease, CHF, depression, Alzheimer's dementia, GERD, prior TIA Medications: No Anticoagulant use Antiplatelet use:YesASA 325, Plavix Reviewed EMR for current medications Allergies: Reviewed Social History: Smoking: No Family History: There is no family history of premature cerebrovascular disease pertinent to this consultation ROS : 14 Points Review of Systems was performed and was negative except mentioned in HPI. Past Surgical History: There Is No Surgical History Contributory To Todays Visit Examination: BP(180/80),Pulse(103),Blood Glucose(120) 1A: Level of Consciousness - Arouses to minor stimulation+ 1 1B: Ask Month and Age - 1 Question Right+ 1 1C: Blink Eyes & Squeeze Hands - Performs Both Tasks+ 0 2: Test Horizontal Extraocular Movements - Normal+ 0 3: Test Visual [place] - No Visual Loss+ 0 4: Test Facial Palsy (Use Grimace if Obtunded) - Minor paralysis (flat nasolabial fold, smile asymmetry)+ 1 5A: Test Left Arm Motor Drift - No Effort Against [place]+ 3 5B: Test Right Arm Motor Drift - Some Effort Against [place]+ 2 6A: Test Left Leg Motor Drift - No Effort Against [place]+ 3 6B: Test Right Leg Motor Drift - No Effort Against [place]+ 3 7: Test Limb Ataxia (FNF/Heel-Dougherty) - No Ataxia+ 0 8: Test Sensation - Normal; No sensory loss+ 0 9: Test Language/Aphasia - Normal; No aphasia+ 0 10: Test Dysarthria - Normal+ 0 11: Test Extinction/Inattention - No abnormality+ 0 NIHSS Score:14 NIHSS Free Text :Age: "74" RUE can lift slightly antigravity; LLE can't lift antigravity BLE only wiggle feet to tickle Pre-Morbid Modified [place] Scale:0 Points = No symptoms at all Spoke with :Dr. Clifford This consult was conducted in real time using interactive audio and video technology. Patient was informed of the technology being used for this visit and agreed to proceed. Patient located in hospital and provider located at home/office setting. Patient is being evaluated for possible acute neurologic impairment and high probability of imminent or life-threatening deterioration. I spent total of 35 minutes providing care to this patient, including time for face to face visit via telemedicine, review of medical records, imaging studies and discussion of findings with providers, the patient and/or family. Dr Sophy Pierre [facility] For Inpatient follow-up with [facility] physician please call [facility] . This is not an outpatient service. Post hospital discharge, please contact hospital directly. Please call or reconsult our service if there are any clinical or diagnostic changes. Medical Decision Making 08/24/23 08:55 08/24/23 08:55 Labs: Laboratory Results - last 24 hr 08/24/23 08/24/23 08/24/23 08:46 08:55 09:09 WBC 9.7 RBC 4.27 L Hgb 12.7 L Hct 38.0 L MCV 89.0 MCH 29.8 MCHC 33.5 RDW 14.0 Plt Count 143 L MPV 8.6 Neut % (Auto) 86.7 H Lymph % (Auto) 5.1 L [place] % (Auto) 2.7 Eos % (Auto) 4.8 H Baso % (Auto) 0.7 Neut # (Auto) 8.4 H Lymph # (Auto) 0.5 L [place] # (Auto) 0.3 Eos # (Auto) 0.5 H Baso # (Auto) 0.1 Absolute Nucleated RBC 0.1 PT 14.1 INR Target Range - INR 1.11 APTT 27.5 PTT Comment - Fibrinogen 420 Sodium 136 Corrected Sodium 137 Potassium 4.4 Chloride 98 Carbon Dioxide 33.8 H BUN 9 Creatinine 1.07 Est GFR (MDRD) Af Amer > 60 Est GFR (MDRD) Non-Af > 60 Glucose 155 H POC Glucose (mg/dL) 120 H Calcium 8.7 Corrected Calcium TNP Total Bilirubin 0.80 AST 19 ALT 17 Alkaline Phosphatase 78 Creatine Kinase 68 Troponin I High Sens 6.8 Total Protein 6.9 Albumin 3.4 Globulin 3.5 Albumin/Globulin Ratio 1.0 L Triglycerides 62 Cholesterol 113 LDL Cholesterol, Calc 43 HDL Cholesterol 58 Cholesterol/HDL Ratio 1.9 Specimen Type Clean catch urine Urine Color Pale yellow Urine Appearance Clear Urine pH 6.0 Ur Specific [place] 1.015 Urine Protein Negative Urine Glucose (UA) Negative Urine Ketones Negative Urine Blood 2+ Urine Nitrite Negative Urine Bilirubin Negative Urine Urobilinogen Normal Ur Leukocyte Esterase Negative Urine RBC 0-2 Urine WBC 0-2 Ur Squamous Epith Cells Rare Urine Bacteria Trace Urine Mucus Rare Ur Culture Indicated? No/not indicated
--- NOTE | 2023-08-24 10:42 | CT ---
EXAM: BRAIN CTA HISTORY: DECREASED RESPONSIVENESS, LT SIDE WEAKNESS; COMPARISON: CT head same day TECHNIQUE: CT angiogram of the head obtained with IV contrast 3D MIPS images obtained and reviewed. Sagittal and coronal reformatted images were performed. Dose reduction techniques including Automated Exposure Co ntrol (AEC) and adjustment of mA and kV were utilized. FINDINGS: No evidence of large vessel aneurysm or dissection in the head. Visualized portions of the distal in ternal carotid arteries appear patent. The bilateral middle cerebral and anterior cerebral arteries appear widely patent. The visualized portions of the bilateral vertebral arteries appear widely patent. Dominant left vert ebral artery. The basilar artery and remaining visualized portions of the posterior circulation appe ar widely patent. IMPRESSION: No evidence of large vessel occlusion or stenosis in the head. THIS IS AN ELECTRONICALLY VERIFIED FINAL REPORT 08/24/2023 10:38 AM - Electronically signed by Mikey Maurer MD
--- NOTE | 2023-08-24 10:44 | CT ---
EXAM: CAROTID CTA HISTORY: DECREASED RESPONSIVENESS, LT SIDE WEAKNESS; COMPARISON: CTA head same day TECHNIQUE: CT angiogram of the neck obtained with IV contrast. 3D MIPS images obtained and reviewed. Sagittal an d coronal reformatted images were performed. Dose reduction techniques including Automated Exposure C ontrol (AEC) and adjustment of mA and kV were utilized. FINDINGS: No evidence of large vessel aneurysm or dissection in the neck. The bilateral common, internal, and external carotid arteries appear widely patent. The bilateral vertebral arteries appear widely patent. The visualized basilar artery appears widely p atent. No acute soft tissue abnormality in the neck. Dense opacities in the visualized upper lungs. No acu te fracture. IMPRESSION: No evidence of large vessel occlusion or stenosis in the neck. Dense opacities in the upper lungs which could be due to chronic changes or pneumonia. THIS IS AN ELECTRONICALLY VERIFIED FINAL REPORT 08/24/2023 10:40 AM - Electronically signed by Mikey Maurer MD
--- NOTE | 2023-08-24 11:28 | CT ---
EXAM: ABDOMEN/PELVIS W/O CON HISTORY: Abdominal pain,, possible renal stone disease TECHNIQUE: Axial noncontrast images with coronal and sagittal reformats. Dose reduction procedures were used w ith mA/kv adjusted for body size. This examination is limited due to the lack of intravenous and ora l contrast. There is mild contrast still circulating from the patient's recent CTA but the examinati on is still limited. COMPARISON: 10/07/2023 FINDINGS: Evaluation of the lung bases was somewhat limited by respiratory motion. Diffuse severe interstiti al lung changes are present in the lung bases with some cystic change suggestive of fibrosis. This i s markedly progressive when compared with the prior CT examination 10/06/2021. This may represent a combination of worsening chronic interstitial lung disease with possible superimposed pneumonia or ed chelo. Heart is mildly enlarged. Examination of the abdomen demonstrates moderately large pneumoperit oneum to be present. Gas is also identified in the anterior abdominal wall within the patient's mult iple ventral hernias. In the absence of recent abdominal surgery, PEG tube placement or manipulation or peritoneal dialysis pneumoperitoneum is indicative of perforated viscus. Immediate surgical eval uation is recommended. The liver, spleen, adrenal glands, and pancreas appear within normal limits t o the limitations of an incompletely contrasted examination. Patient is status post cholecystectomy. Kidneys are unobstructed and without masses or visible stones. Contrast in the collecting system c ould obscure small stones. Ureters are unobstructed and normal. Appendix is not identified with abs olute certainty. There are no secondary signs of appendicitis. Calcific atherosclerotic changes pre sent in the nondilated abdominal aorta. No enlarged intraperitoneal and retroperitoneal lymphadenopa thy is identified. There are duodenal, jejunal, and ileal diverticula identified. No definite evide nce for duodenal, jejunal, or ileal diverticulitis. There are no definite findings suggestive of ent eritis. No findings suggestive of colitis. Diffuse colonic diverticulitis is most prominent in the descending and sigmoid colon. In the area of the midsigmoid colon there is significant perisigmoid i nflammatory change suggestive of acute midsigmoid diverticulitis. There are some bubbles of extralum inal gas adjacent to the area involved with diverticulitis and this may be the source of the patient' s perforation. No pelvic masses, pelvic fluid, or pelvic lymphadenopathy is identified. No bladder abnormalities identified. Penile prosthesis reservoir in the right hemipelvis. No lytic or blastic skeletal lesions of significance identified. IMPRESSION: Pneumoperitoneum suggestive of perforated viscus. Acute midsigmoid diverticulitis with perisigmoid inflammation and several bubbles of extraluminal gas suggesting that the midsigmoid diverticulitis could be the site of the patient's perforation and sub sequent pneumoperitoneum Duodenal, jejunal, and ileal diverticulosis without definite diverticulitis Severe diffuse interstitial lung disease in the lung bases which may represent a combination of progr essive chronic interstitial lung disease with superimposed edema or pneumonia. THIS IS AN ELECTRONICALLY VERIFIED FINAL REPORT 08/24/2023 11:24 AM - Electronically signed by Mikey Maurer MD
[2023-08-24] MEDS: ZOSYN VIAL 3.375 GRAMS 3.375 G in NS 100 ML IV 100 ML IV SCH (11:49)
[2023-08-24] MEDS: NS 250 ML IV 25 ML IV PRN (11:50)
--- NOTE | 2023-08-24 12:03 | RAD ---
EXAM:CHEST, 1 VIEWHISTORY:POSS STROKE, LT SIDE WEAKNESS;COMPARISON:Prior study or studies were utilized for comparison during interpretation with the most relevant dated 08/14/2023TECHNIQUE:CHEST, 1 VIEWFINDINGS:Chest:Lines and tubes: NoneMediastinum: Cardiomegaly.Pulmonary vessels: There is pulmonary vascular congestion.Lung hannon: Patchy opacities are seen throughout the lungsPleura: No effusion. No pneumothorax.Bones and soft tissues: No acute osseous or soft tissue abnormality.IMPRESSION:1. Heart failure suspected. Concomitant pneumonia can not be ruled outTHIS IS AN ELECTRONICALLY VERIFIED FINAL REPORT08/24/2023 12:00 PM - Electronically signed by Kody Jose MD
[2023-08-24] MEDS ORDERED: ZOSYN VIAL 3.375 GRAMS 3.375 G in NS 100 ML IV 100 ML IV SCH (12:16)
[2023-08-24] MEDS ORDERED: NS 250 ML IV 25 ML IV PRN (12:16)
[2023-08-24] MEDS: OMNIPAQUE 350 mg/mL 100 mL BTL 100 ML ONE (13:15)
[2023-08-24] MEDS: DUONEB 0.5 MG/3 MG (3 mL) NEB SCH (16:37)
[2023-08-24] MEDS: PULMICORT NEB TX 0.5 MG NEB SCH (20:04)
[2023-08-24] MEDS: D5 1/2 NS 1,000 ML 1,000 ML IV SCH (22:27)
[2023-08-24] MEDS: TORADOL 30 MG VIAL IVP PRN (22:31)
[2023-08-24] MEDS: FLAGYL IV PREMIX 500 MG BAG 500 MG/100 ML BAG IV SCH (23:52)
[2023-08-25] MEDS: DILAUDID INJ IVP PRN (02:28)
[2023-08-25 05:08] LABS: HEMOGLOBIN 11.4 g/dL (13.5-18.0); PLATELET COUNT 131 X10^3/uL (150.0-450.0); WHITE BLOOD COUNT 7.6 X10^3/uL (3.6-10.0)
[2023-08-25 05:13] LABS: BASOPHILS % (AUTO) 0.4 % (0.2-1.0); EOSINOPHILS # (AUTO) 0.2 x10^3/uL (0.0-0.2); EOSINOPHILS % (AUTO) 2.2 % (0.9-2.9); HEMATOCRIT 34.6 % (42.0-54.0); LYMPHOCYTES # (AUTO) 0.4 X10^3/uL (1.3-2.9); LYMPHOCYTES % (AUTO) 5.3 % (21.0-51.0); MEAN CORPUSCULAR HEMOGLOBIN 29.8 pg (27.0-34.0); MEAN CORPUSCULAR VOLUME 90.4 fL (80.0-100.0); MEAN PLATELET VOLUME 8.9 fL (7.4-11.0); MONOCYTES # (AUTO) 0.2 x10^3/uL (0.3-0.8); MONOCYTES % (AUTO) 2.4 % (0.0-13.0); NEUTROPHILS # (AUTO) 6.8 x10^3/uL (2.2-4.8); NEUTROPHILS % (AUTO) 89.7 % (42.0-75.0); RED BLOOD COUNT 3.83 X10^6/uL (4.7-6.0)
[2023-08-25 05:23] LABS: ALANINE AMINOTRANSFERASE 12 Units/L (12-78); ALBUMIN 2.5 g/dL (3.4-5.0); ALKALINE PHOSPHATASE 51 Units/L (46-116); ASPARTATE AMINO TRANSFERASE 11 Units/L (15-37); BLOOD UREA NITROGEN 13 mg/dL (7-18); CALCIUM 7.9 mg/dL (8.5-10.1); CARBON DIOXIDE 28.9 mmol/L (21-32); CHLORIDE 102 mmol/L (98-107); COR CA(FOR HYPOALB) 9.1 mg/dL (8.5-10.1); COR NA(FOR HYPERGLY) 139 mmol/L (136-145); CREATININE 1.13 mg/dL (0.70-1.30); GLUCOSE 171 mg/dL (65-99); POTASSIUM 3.9 mmol/L (3.5-5.1); SODIUM 137 mmol/L (136-145); TOTAL PROTEIN 5.8 g/dL (6.4-8.2); eGFR NON BLACK RACES > 60 (>60)
--- NOTE | 2023-08-25 06:33 | RAD ---
EXAM:KUBHISTORY:Perforated bowelCOMPARISON:CT abdomen 08/24/2023FINDINGS:There is mild gaseous distention of scattered segments of small bowel and colon. No definite mass, visceral enlargement or abnormal calcification identified. Free air can not be excluded on this supine image.IMPRESSION:Mild nonspecific intestinal dilatation.THIS IS AN ELECTRONICALLY VERIFIED FINAL REPORT08/25/2023 6:30 AM - Electronically signed by Vincent Olivares MD
[2023-08-25] MEDS: TUSSIONEX PENNKINETIC SUSP PO PRN (09:39)
[2023-08-25] MEDS ORDERED: PHARMACY CONSULT - TPN XX SCH (10:00)
--- NOTE | 2023-08-25 10:16 | DR.PROGNOT ---
HOSPITAL PROGRESS NOTE Progress Note for Day of: Progress Note Date: 08/25/23 Chief Complaint Chief Complaint: excessive coughing today .. same abdominal pain ,more lower and RT side . good urine output . WBC 7.6 .Hgb 11.4.. BUN/Creat 13/1.1... normal LFT . chest Xray pending . KUB nonspecific bowel . Past Medical Family Social History Allergies: Allergies morphine Allergy (Verified 06/05/17 16:17) lorazepam [From Ativan] Adverse Reaction (Verified 08/03/23 01:27) Vital Signs Vital Signs: Vital Signs Temperature 98.7 F Temperature 98.4 F Pulse Rate [Bilateral Brachial 99 ] Pulse Rate [Bilateral Brachial 68 ] Respiratory Rate 15 Respiratory Rate 25 Respiratory Rate 15 Respiratory Rate 30 Respiratory Rate 14 Respiratory Rate 14 Respiratory Rate 14 Blood Pressure [Left Arm] 113/58 Blood Pressure [Left Arm] 94/55 O2 Sat by Pulse Oximetry 100 O2 Sat by Pulse Oximetry 100 Physical Exam Oriented: Normal Eyes: Normal Respiratory: Rhonchi (bilateral ) GI:Auscultation: Decreased GI: Tenderness: Other (full abdomen , moderate to severe tenderness RLQ and mid abdomen ) Speech Pattern: Clear and Appropriate Laboratory and Diagnostics 08/25/23 04:43 08/25/23 04:43 Labs: 08/24/23 14:07 Sputum - Expectorated Sputum Sputum Culture - Preliminary 08/24/23 14:07 Sputum - Expectorated Sputum - Final Laboratory WBC 7.6 X10^3/uL (3.6-10.0) 08/25/23 04:43 RBC 3.83 X10^6/uL (4.7-6.0) L 08/25/23 04:43 Hgb 11.4 g/dL (13.5-18.0) L 08/25/23 04:43 Hct 34.6 % (42.0-54.0) L 08/25/23 04:43 MCV 90.4 fL (80.0-100.0) 08/25/23 04:43 MCH 29.8 pg (27.0-34.0) 08/25/23 04:43 MCHC 33.0 g/dL (33.0-35.0) 08/25/23 04:43 RDW 14.0 % (11.6-16.5) 08/25/23 04:43 Plt Count 131 X10^3/uL (150.0-450.0) L 08/25/23 04:43 MPV 8.9 fL (7.4-11.0) 08/25/23 04:43 Neut % (Auto) 89.7 % (42.0-75.0) H 08/25/23 04:43 Lymph % (Auto) 5.3 % (21.0-51.0) L 08/25/23 04:43 [place] % (Auto) 2.4 % (0.0-13.0) 08/25/23 04:43 Eos % (Auto) 2.2 % (0.9-2.9) 08/25/23 04:43 Baso % (Auto) 0.4 % (0.2-1.0) 08/25/23 04:43 Neut # (Auto) 6.8 x10^3/uL (2.2-4.8) H 08/25/23 04:43 Lymph # (Auto) 0.4 X10^3/uL (1.3-2.9) L 08/25/23 04:43 [place] # (Auto) 0.2 x10^3/uL (0.3-0.8) L 08/25/23 04:43 Eos # (Auto) 0.2 x10^3/uL (0.0-0.2) 08/25/23 04:43 Baso # (Auto) 0.0 X10^3/uL (0.0-0.1) 08/25/23 04:43 Absolute Nucleated RBC 0.0 /100WBC 08/25/23 04:43 PT 14.1 SECONDS (11.8-14.3) 08/24/23 08:55 INR Target Range - 08/24/23 08:55 INR 1.11 (0.8-1.3) 08/24/23 08:55 APTT 27.5 SECONDS (22.9-36.5) 08/24/23 08:55 PTT Comment - 08/24/23 08:55 Fibrinogen 420 mg/dL (239-489) 08/24/23 08:55 Sodium 137 mmol/L (136-145) 08/25/23 04:43 Corrected Sodium 139 mmol/L (136-145) 08/25/23 04:43 Potassium 3.9 mmol/L (3.5-5.1) 08/25/23 04:43 Chloride 102 mmol/L (98-107) 08/25/23 04:43 Carbon Dioxide 28.9 mmol/L (21-32) 08/25/23 04:43 BUN 13 mg/dL (7-18) 08/25/23 04:43 Creatinine 1.13 mg/dL (0.70-1.30) 08/25/23 04:43 Est GFR (MDRD) Af Amer > 60 (>60) 08/25/23 04:43 Est GFR (MDRD) Non-Af > 60 (>60) 08/25/23 04:43 Glucose 171 mg/dL (65-99) H 08/25/23 04:43 POC Glucose (mg/dL) 120 mg/dL (65-99) H 08/24/23 08:46 Calcium 7.9 mg/dL (8.5-10.1) L 08/25/23 04:43 Corrected Calcium 9.1 mg/dL (8.5-10.1) 08/25/23 04:43 Total Bilirubin 1.10 mg/dL (0.2-1.0) H 08/25/23 04:43 AST 11 Units/L (15-37) L 08/25/23 04:43 ALT 12 Units/L (12-78) 08/25/23 04:43 Alkaline Phosphatase 51 Units/L (46-116) 08/25/23 04:43 Creatine Kinase 68 Units/L (39-308) 08/24/23 08:55 Troponin I High Sens 6.8 ng/L (4.0-60.0) 08/24/23 08:55 Total Protein 5.8 g/dL (6.4-8.2) L 08/25/23 04:43 Albumin 2.5 g/dL (3.4-5.0) L 08/25/23 04:43 Globulin 3.3 g/dL (2.5-4.5) 08/25/23 04:43 Albumin/Globulin Ratio 0.8 Ratio (1.1-2.1) L 08/25/23 04:43 Triglycerides 62 mg/dL (0-150) 08/24/23 08:55 Cholesterol 113 mg/dL (0-200) 08/24/23 08:55 LDL Cholesterol, Calc 43 mg/dL (0-100) 08/24/23 08:55 HDL Cholesterol 58 mg/dL (40-60) 08/24/23 08:55 Cholesterol/HDL Ratio 1.9 (0.0-5.0) 08/24/23 08:55 Specimen Type Clean catch urine 08/24/23 09:09 Urine Color Pale yellow (YELLOW) 08/24/23 09:09 Urine Appearance Clear (CLEAR) 08/24/23 09:09 Urine pH 6.0 (5.0 - 8.0) 08/24/23 09:09 Ur Specific [place] 1.015 (1.000-1.030) 08/24/23 09:09 Urine Protein Negative (NEGATIVE) 08/24/23 09:09 Urine Glucose (UA) Negative (NEGATIVE) 08/24/23 09:09 Urine Ketones Negative (NEGATIVE) 08/24/23 09:09 Urine Blood 2+ (NEGATIVE) 08/24/23 09:09 Urine Nitrite Negative (NEGATIVE) 08/24/23 09:09 Urine Bilirubin Negative (NEGATIVE) 08/24/23 09:09 Urine Urobilinogen Normal (NORMAL) 08/24/23 09:09 Ur Leukocyte Esterase Negative (NEGATIVE) 08/24/23 09:09 Urine RBC 0-2 /HPF (0-3) 08/24/23 09:09 Urine WBC 0-2 /HPF (0-5) 08/24/23 09:09 Ur Squamous Epith Cells Rare /HPF (NEGATIVE) 08/24/23 09:09 Urine Bacteria Trace /HPF (NEGATIVE) 08/24/23 09:09 Urine Mucus Rare /HPF (NEGATIVE) 08/24/23 09:09 Ur Culture Indicated? No/not indicated 08/24/23 09:09 Resp Viral Panel (PCR) Cancelled 08/24/23 14:07 Assessment and Plan 1: ruptured diverticulitis . on IVF, and ABT. to start central line and TPN . surgery in no improvement .. 2: recent pneumonia with excessive cough . 3: multiple abdominal surgeries with adhesions . Problem Patient Problems: Patient Problems Perforated diverticulum of large intestine (Acute) K57.20
--- NOTE | 2023-08-25 10:23 | RAD ---
EXAM:Portable AP chest and lateralHISTORY:PneumoniaCOMPARISON:08/23FINDINGS:Mild stable cardiomegaly. Diffuse bilateral pulmonary infiltrates or edema with slight interval improvement since 1 day prior. No additional consolidation, pneumothorax or developing pleural effusion.IMPRESSION:Slight interval improvement.THIS IS AN ELECTRONICALLY VERIFIED FINAL REPORT08/25/2023 10:20 AM - Electronically signed by Vincent Olivares MD
[2023-08-25 10:50] VITALS: BMI 24.0
[2023-08-25] MEDS: VERSED ONE (11:09)
--- NOTE | 2023-08-25 11:59 | DR.UPDATE ---
H&P Update Prescription drug monitoring program results: PDMP was not reviewed H&P Reviewed: Yes Any changes to H&P?: No Patient was examined?: Yes Vital Signs: Temp Pulse Pulse Resp BP BP Pulse Ox 08/25/23 10:57 15 08/25/23 08:00 98.7 F 99 H 25 H 113/58 100 08/25/23 07:00 08/25/23 10:27 20 08/25/23 08:13 15 08/25/23 05:56 15 08/25/23 05:26 30 H 08/25/23 02:58 14 08/25/23 04:00 98.4 F 68 14 94/55 100 08/25/23 02:28 14 08/24/23 23:01 16 08/25/23 00:05 76 100 08/25/23 00:00 99.3 F 74 14 109/53 100 08/24/23 20:04 81 98 08/24/23 20:04 08/24/23 22:31 18 08/24/23 20:00 100.3 F H 84 18 114/56 98 08/24/23 19:00 08/24/23 16:37 84 98 08/24/23 14:25 98.6 F 80 20 100/53 99 08/24/23 15:32 99.6 F 84 16 111/55 98 08/24/23 13:46 105 H 20 130/60 99 08/24/23 13:25 08/24/23 12:25 08/24/23 12:30 130/60 08/24/23 12:27 105 H 99 08/24/23 12:15 96 H 100 08/24/23 12:00 95 H 100 08/24/23 12:00 139/59 08/24/23 11:45 97 H 100 08/24/23 11:30 97 H 100 08/24/23 11:30 132/59 08/24/23 11:15 97 H 100 08/24/23 11:00 141/63 08/24/23 11:00 99 H 100 08/24/23 10:45 97 H 99 08/24/23 10:32 97 H 98 08/24/23 10:31 120/56 08/24/23 10:28 101 H 100 08/24/23 10:15 96 H 100 08/24/23 10:08 94 L 08/24/23 10:08 133/88 08/24/23 09:47 95 H 94 L 08/24/23 09:40 102 H 100 08/24/23 09:40 136/61 08/24/23 09:30 126/59 08/24/23 09:30 96 H 99 08/24/23 09:24 98 H 98 08/24/23 09:24 134/60 08/24/23 09:16 108 H 94 L 08/24/23 08:32 111 H 86 L 08/24/23 08:29 98.7 F 122 H 20 180/80 87 L O2 Del Method O2 Flow Rate FiO2 08/25/23 10:57 08/25/23 08:00 Nasal Cannula 2 08/25/23 07:00 Nasal Cannula 2 08/25/23 10:27 08/25/23 08:13 Nasal Cannula 2 08/25/23 05:56 08/25/23 05:26 08/25/23 02:58 08/25/23 04:00 Nasal Cannula 2 08/25/23 02:28 08/24/23 23:01 08/25/23 00:05 08/25/23 00:00 Nasal Cannula 2 08/24/23 20:04 08/24/23 20:04 Nasal Cannula 2 08/24/23 22:31 08/24/23 20:00 Nasal Cannula 2 08/24/23 19:00 Nasal Cannula 2 08/24/23 16:37 08/24/23 14:25 Nasal Cannula 2 08/24/23 15:32 Nasal Cannula 2 08/24/23 13:46 Nasal Cannula 2 08/24/23 13:25 Nasal Cannula 2 08/24/23 12:25 Nasal Cannula 2 08/24/23 12:30 08/24/23 12:27 08/24/23 12:15 08/24/23 12:00 08/24/23 12:00 08/24/23 11:45 08/24/23 11:30 08/24/23 11:30 08/24/23 11:15 08/24/23 11:00 08/24/23 11:00 08/24/23 10:45 08/24/23 10:32 08/24/23 10:31 08/24/23 10:28 08/24/23 10:15 08/24/23 10:08 08/24/23 10:08 08/24/23 09:47 08/24/23 09:40 08/24/23 09:40 08/24/23 09:30 08/24/23 09:30 08/24/23 09:24 08/24/23 09:24 08/24/23 09:16 08/24/23 08:32 08/24/23 08:29 Room Air Procedures (ALL) - Central Line Placement PCM.CLCO: written consent Time out performed: Yes Patient placed pm monitor/pulse ox: Yes MD prep: mask, gown, gloves, other Centrial line prep: chlorhexidine scrub, sterile drapes applied Local anesthsia used: lidocane 1% Ultrasound used for placement: Yes (LUE x 2 att, Rue x 2 att; cannulation visualized in right basilic) Central line lumen ininserted: double (42cm in, 8cm exposed) Post procedure: good blood return, all ports aspirated, flushed,capped, sterile dressing applied Post procedure xray: tip oc catheter in good position (appears svc; radiology report pending) Patient tolerated procedure: Yes Complications: none
[2023-08-25] MEDS: CLINIMIX 5 %/20 % 1,000 ML with MVI INJ (ADULT) 10 ML IV SCH (12:06)
[2023-08-25] MEDS: DRUG FILTER EXTENSION SET ONE ×2 (12:07)
--- NOTE | 2023-08-25 12:38 | RAD ---
EXAM:CHEST, 1 VIEWHISTORY:PICC LINE PLACEMENT;COMPARISON:August 24TECHNIQUE:Portable chest radiographFINDINGS:Right-sided PICC line terminates at the cavoatrial junction. Restricted lung volumes are demonstrated with bilateral interstitial prominence and ground-glass attenuation. These findings may correspond to any combination of pulmonary fibrosis without or with superimposed acute airspace disease. Surgical clips are seen in the epigastric region. The heart size is stable. No acute osseous abnormalities of the chest. No pneumothorax identifiedIMPRESSION:Adequate position of the right-sided PICC lineRestricted lung volumes with interstitial prominence and bilateral ground-glass opacities which may be associated with any combination of chronic pulmonary fibrosis without or with superimposed acute airspace disease.THIS IS AN ELECTRONICALLY VERIFIED FINAL REPORT08/25/2023 12:35 PM - Electronically signed by José Chow MD
[2023-08-25] MEDS: NS 100 ML IV 100 ML ONE (14:05)
[2023-08-26 05:27] LABS: BASOPHILS % (AUTO) 0.6 % (0.2-1.0); EOSINOPHILS # (AUTO) 0.3 x10^3/uL (0.0-0.2); HEMATOCRIT 30.1 % (42.0-54.0); HEMOGLOBIN 9.9 g/dL (13.5-18.0); LYMPHOCYTES # (AUTO) 0.2 X10^3/uL (1.3-2.9); LYMPHOCYTES % (AUTO) 2.8 % (21.0-51.0); MEAN CORPUSCULAR HEMOGLOBIN 29.7 pg (27.0-34.0); MEAN PLATELET VOLUME 8.9 fL (7.4-11.0); MONOCYTES # (AUTO) 0.1 x10^3/uL (0.3-0.8); MONOCYTES % (AUTO) 2.1 % (0.0-13.0); NEUTROPHILS # (AUTO) 5.7 x10^3/uL (2.2-4.8); NEUTROPHILS % (AUTO) 89.5 % (42.0-75.0); PLATELET COUNT 110 X10^3/uL (150.0-450.0); RED BLOOD COUNT 3.34 X10^6/uL (4.7-6.0); RED CELL DISTRIBUTION WIDTH 14.2 % (11.6-16.5); WHITE BLOOD COUNT 6.4 X10^3/uL (3.6-10.0)
[2023-08-26 05:57] LABS: ALANINE AMINOTRANSFERASE 9 Units/L (12-78); ALBUMIN 2.1 g/dL (3.4-5.0); ALKALINE PHOSPHATASE 50 Units/L (46-116); ASPARTATE AMINO TRANSFERASE 10 Units/L (15-37); BLOOD UREA NITROGEN 14 mg/dL (7-18); CALCIUM 8.1 mg/dL (8.5-10.1); CHLORIDE 103 mmol/L (98-107); COR CA(FOR HYPOALB) 9.6 mg/dL (8.5-10.1); COR NA(FOR HYPERGLY) 140 mmol/L (136-145); CREATININE 0.91 mg/dL (0.70-1.30); GLUCOSE 195 mg/dL (65-99); POTASSIUM 3.4 mmol/L (3.5-5.1); SODIUM 138 mmol/L (136-145); TOTAL PROTEIN 5.5 g/dL (6.4-8.2); eGFR NON BLACK RACES > 60 (>60)
--- NOTE | 2023-08-26 06:52 | RAD ---
EXAM:CHEST, 1 VIEWHISTORY:Pneumonia;COMPARISON:Multipl e recent comparison examsTECHNIQUE:Portable chest radiographFINDINGS:Right-sided PICC line terminates at the cavoatrial junction. EKG leads overlie the patient. There is elevation of the right diaphragm. Restricted lung volumes are redemonstrated with bilateral coarsened interstitial lung markings and patchy superimposed regions of ground-glass attenuation throughout the left lung and most conspicuous within the right apex. Heart size is stable. There is no radiographic evidence of free air or pneumothorax. No acute osseous abnormalities are identified. Gas-filled bowel segments are partially included within the upper abdomen.IMPRESSION:Restricted lung volumes with interstitial prominence and bilateral ground-glass opacities which may be associated with any combination of chronic pulmonary fibrosis with superimposed pneumonia. Given differences in technique there is no significant change in comparison to the most recent radiographs. Continued imaging follow-up recommendedAccumulating gas within the upper GI tract and colonUnchanged position of right-sided PICC line.THIS IS AN ELECTRONICALLY VERIFIED FINAL REPORT08/26/2023 6:49 AM - Electronically signed by José Chow MD
[2023-08-26] MEDS ORDERED: CONSULT PHARMACY - POTASSIUM & MAGNESIUM XX SCH (07:00)
[2023-08-26] MEDS ORDERED: DEXTROSE 10% 1,000 ML IV PRN (07:06)
[2023-08-26] MEDS: DRUG FILTER EXTENSION SET ONE (07:43)
[2023-08-26] MEDS: MAG-OX TAB PO SCH (08:54)
[2023-08-26] MEDS: K-DUR TAB 20 MEQ PO SCH (08:54)
[2023-08-26] MEDS: TUSSIONEX PENNKINETIC SUSP PO SCH (08:58)
[2023-08-26] MEDS: LOVENOX INJ 40 MG SYR SC SCH (08:58)
[2023-08-26] MEDS: TESSALON PERLES PO PRN (08:59)
--- NOTE | 2023-08-26 09:32 | DR.PROGNOT ---
HOSPITAL PROGRESS NOTE Progress Note for Day of: Progress Note Date: 08/26/23 Chief Complaint Chief Complaint: still having excessive coughing .. same abdominal pain mid and RT side , no nausea or vomiting .. no BM but passing flatus good urine output . normal WBC . afebrile .. Past Medical Family Social History Past Med/Fam/Surg Hx: No changes since H&P Allergies: Allergies morphine Allergy (Verified 06/05/17 16:17) lorazepam [From Ativan] Adverse Reaction (Verified 08/03/23 01:27) Review Of Systems ROS: No change since H&P Vital Signs Vital Signs: Vital Signs Temperature 98.4 F Temperature 97.8 F Pulse Rate [Bilateral Brachial 90 ] Pulse Rate [Bilateral Brachial 90 ] Respiratory Rate 19 Respiratory Rate 20 Respiratory Rate 20 Respiratory Rate 20 Blood Pressure [Left Arm] 130/62 Blood Pressure [Left Arm] 147/90 O2 Sat by Pulse Oximetry 98 O2 Sat by Pulse Oximetry 100 Physical Exam Oriented: Normal Eyes: Normal Respiratory: Rhonchi (bilateral ) GI:Auscultation: Decreased GI:Palpation: Other (mild distention and incisional hernia ..) GI: Tenderness: Other (full abdomen , moderate to severe tenderness RLQ and mid abdomen ) Mood Description: Calm Speech Pattern: Clear and Appropriate Laboratory and Diagnostics 08/26/23 04:45 08/26/23 04:45 Labs: 08/24/23 14:07 Sputum - Expectorated Sputum Sputum Culture - Preliminary 08/24/23 14:07 Sputum - Expectorated Sputum - Final Laboratory WBC 6.4 X10^3/uL (3.6-10.0) 08/26/23 04:45 RBC 3.34 X10^6/uL (4.7-6.0) L 08/26/23 04:45 Hgb 9.9 g/dL (13.5-18.0) L 08/26/23 04:45 Hct 30.1 % (42.0-54.0) L 08/26/23 04:45 MCV 90.0 fL (80.0-100.0) 08/26/23 04:45 MCH 29.7 pg (27.0-34.0) 08/26/23 04:45 MCHC 33.0 g/dL (33.0-35.0) 08/26/23 04:45 RDW 14.2 % (11.6-16.5) 08/26/23 04:45 Plt Count 110 X10^3/uL (150.0-450.0) L 08/26/23 04:45 MPV 8.9 fL (7.4-11.0) 08/26/23 04:45 Neut % (Auto) 89.5 % (42.0-75.0) H 08/26/23 04:45 Lymph % (Auto) 2.8 % (21.0-51.0) L 08/26/23 04:45 [place] % (Auto) 2.1 % (0.0-13.0) 08/26/23 04:45 Eos % (Auto) 5.0 % (0.9-2.9) H 08/26/23 04:45 Baso % (Auto) 0.6 % (0.2-1.0) 08/26/23 04:45 Neut # (Auto) 5.7 x10^3/uL (2.2-4.8) H 08/26/23 04:45 Lymph # (Auto) 0.2 X10^3/uL (1.3-2.9) L 08/26/23 04:45 [place] # (Auto) 0.1 x10^3/uL (0.3-0.8) L 08/26/23 04:45 Eos # (Auto) 0.3 x10^3/uL (0.0-0.2) H 08/26/23 04:45 Baso # (Auto) 0.0 X10^3/uL (0.0-0.1) 08/26/23 04:45 Absolute Nucleated RBC 0.0 /100WBC 08/26/23 04:45 PT 14.1 SECONDS (11.8-14.3) 08/24/23 08:55 INR Target Range - 08/24/23 08:55 INR 1.11 (0.8-1.3) 08/24/23 08:55 APTT 27.5 SECONDS (22.9-36.5) 08/24/23 08:55 PTT Comment - 08/24/23 08:55 Fibrinogen 420 mg/dL (239-489) 08/24/23 08:55 Sodium 138 mmol/L (136-145) 08/26/23 04:45 Corrected Sodium 140 mmol/L (136-145) 08/26/23 04:45 Potassium 3.4 mmol/L (3.5-5.1) L 08/26/23 04:45 Chloride 103 mmol/L (98-107) 08/26/23 04:45 Carbon Dioxide 29.0 mmol/L (21-32) 08/26/23 04:45 BUN 14 mg/dL (7-18) 08/26/23 04:45 Creatinine 0.91 mg/dL (0.70-1.30) 08/26/23 04:45 Est GFR (MDRD) Af Amer > 60 (>60) 08/26/23 04:45 Est GFR (MDRD) Non-Af > 60 (>60) 08/26/23 04:45 Glucose 195 mg/dL (65-99) H 08/26/23 04:45 POC Glucose (mg/dL) 120 mg/dL (65-99) H 08/24/23 08:46 Lactic Acid 1.7 mmol/L (0.4-2.0) 08/25/23 13:18 Calcium 8.1 mg/dL (8.5-10.1) L 08/26/23 04:45 Corrected Calcium 9.6 mg/dL (8.5-10.1) 08/26/23 04:45 Phosphorus 2.0 mg/dL (2.6-4.7) L 08/26/23 04:45 Magnesium 1.9 mg/dL (2.0-2.9) L 08/26/23 04:45 Total Bilirubin 0.60 mg/dL (0.2-1.0) 08/26/23 04:45 AST 10 Units/L (15-37) L 08/26/23 04:45 ALT 9 Units/L (12-78) L 08/26/23 04:45 Alkaline Phosphatase 50 Units/L (46-116) 08/26/23 04:45 Creatine Kinase 68 Units/L (39-308) 08/24/23 08:55 Troponin I High Sens 6.8 ng/L (4.0-60.0) 08/24/23 08:55 Total Protein 5.5 g/dL (6.4-8.2) L 08/26/23 04:45 Albumin 2.1 g/dL (3.4-5.0) L 08/26/23 04:45 Globulin 3.4 g/dL (2.5-4.5) 08/26/23 04:45 Albumin/Globulin Ratio 0.6 Ratio (1.1-2.1) L 08/26/23 04:45 Triglycerides 38 mg/dL (0-150) 08/26/23 04:45 Cholesterol 113 mg/dL (0-200) 08/24/23 08:55 LDL Cholesterol, Calc 43 mg/dL (0-100) 08/24/23 08:55 HDL Cholesterol 58 mg/dL (40-60) 08/24/23 08:55 Cholesterol/HDL Ratio 1.9 (0.0-5.0) 08/24/23 08:55 Specimen Type Clean catch urine 08/24/23 09:09 Urine Color Pale yellow (YELLOW) 08/24/23 09:09 Urine Appearance Clear (CLEAR) 08/24/23 09:09 Urine pH 6.0 (5.0 - 8.0) 08/24/23 09:09 Ur Specific [place] 1.015 (1.000-1.030) 08/24/23 09:09 Urine Protein Negative (NEGATIVE) 08/24/23 09:09 Urine Glucose (UA) Negative (NEGATIVE) 08/24/23 09:09 Urine Ketones Negative (NEGATIVE) 08/24/23 09:09 Urine Blood 2+ (NEGATIVE) 08/24/23 09:09 Urine Nitrite Negative (NEGATIVE) 08/24/23 09:09 Urine Bilirubin Negative (NEGATIVE) 08/24/23 09:09 Urine Urobilinogen Normal (NORMAL) 08/24/23 09:09 Ur Leukocyte Esterase Negative (NEGATIVE) 08/24/23 09:09 Urine RBC 0-2 /HPF (0-3) 08/24/23 09:09 Urine WBC 0-2 /HPF (0-5) 08/24/23 09:09 Ur Squamous Epith Cells Rare /HPF (NEGATIVE) 08/24/23 09:09 Urine Bacteria Trace /HPF (NEGATIVE) 08/24/23 09:09 Urine Mucus Rare /HPF (NEGATIVE) 08/24/23 09:09 Ur Culture Indicated? No/not indicated 08/24/23 09:09 Resp Viral Panel (PCR) Cancelled 08/24/23 14:07 Assessment and Plan 1: ruptured diverticulitis . on IVF, and ABT and TPN. surgery in no improvement .. 2: recent pneumonia with excessive cough . 3: multiple abdominal surgeries with adhesions . Problem Patient Problems: Patient Problems (Updated 08/24/23 @ 12:10 by Jose Clifford) Perforated diverticulum of large intestine (Acute) K57.20
[2023-08-26] MEDS: NovoLIN R (or HumuLIN R) SUBCUT PRN (12:35)
[2023-08-26] MEDS: ZOFRAN INJ 4 MG VIAL IVP PRN (14:16)
--- NOTE | 2023-08-26 15:23 | RAD ---
EXAM:KUBHISTORY:Perforated bowelCOMPARISON:08/25/2023FINDINGS: There is moderately severe gaseous distention of small and large bowel without evidence for pneumatosis, mass, visceral enlargement or abnormal calcification.IMPRESSION:Slight interval increase in nonobstructive intestinal distention. Free air can not be excluded on supine exam.THIS IS AN ELECTRONICALLY VERIFIED FINAL REPORT08/26/2023 3:20 PM - Electronically signed by Vincent Olivares MD
[2023-08-26] MEDS: CLINIMIX 5 %/20 % 1,000 ML with MVI INJ (ADULT) 10 ML, TPN ELECTROLYTES 20 ML IV SCH (22:24)
[2023-08-27 04:48] LABS: BASOPHILS % (AUTO) 0.3 % (0.2-1.0); EOSINOPHILS # (AUTO) 0.4 x10^3/uL (0.0-0.2); EOSINOPHILS % (AUTO) 7.5 % (0.9-2.9); HEMATOCRIT 29.8 % (42.0-54.0); HEMOGLOBIN 10.1 g/dL (13.5-18.0); LYMPHOCYTES # (AUTO) 0.2 X10^3/uL (1.3-2.9); MEAN CORPUSCULAR HEMOGLOBIN 30.3 pg (27.0-34.0); MEAN CORPUSCULAR VOLUME 89.1 fL (80.0-100.0); MEAN PLATELET VOLUME 8.8 fL (7.4-11.0); MONOCYTES # (AUTO) 0.2 x10^3/uL (0.3-0.8); MONOCYTES % (AUTO) 3.4 % (0.0-13.0); NEUTROPHILS # (AUTO) 5.1 x10^3/uL (2.2-4.8); NEUTROPHILS % (AUTO) 85.8 % (42.0-75.0); PLATELET COUNT 130 X10^3/uL (150.0-450.0); RED BLOOD COUNT 3.35 X10^6/uL (4.7-6.0)
[2023-08-27 04:57] LABS: PREALBUMIN 9.6 mg/dL (18-35.7)
[2023-08-27 05:00] LABS: ALANINE AMINOTRANSFERASE 8 Units/L (12-78); ALBUMIN 1.9 g/dL (3.4-5.0); ALKALINE PHOSPHATASE 49 Units/L (46-116); ASPARTATE AMINO TRANSFERASE 12 Units/L (15-37); BLOOD UREA NITROGEN 14 mg/dL (7-18); CALCIUM 8.1 mg/dL (8.5-10.1); CARBON DIOXIDE 28.4 mmol/L (21-32); CHLORIDE 101 mmol/L (98-107); COR CA(FOR HYPOALB) 9.8 mg/dL (8.5-10.1); COR NA(FOR HYPERGLY) 140 mmol/L (136-145); CREATININE 0.89 mg/dL (0.70-1.30); GLUCOSE 218 mg/dL (65-99); MAGNESIUM 1.7 mg/dL (2.0-2.9); SODIUM 137 mmol/L (136-145); TOTAL PROTEIN 5.4 g/dL (6.4-8.2); eGFR NON BLACK RACES > 60 (>60)
[2023-08-27] MEDS ORDERED: CONSULT PHARMACY - POTASSIUM & MAGNESIUM XX SCH ×2 (06:00→19:00)
--- NOTE | 2023-08-27 06:04 | RAD ---
EXAM: Portable chest HISTORY: Follow-up pneumonia COMPARISON: 08/26/2023 FINDINGS: There is a right-sided PICC line with its tip near the cavoatrial junction. Hypoinflation accentua kaitlin the heart size it is likely within normal limits. Bilateral interstitial and ground-glass infilt rates are again identified most prominently affecting the right upper lobe in the left lung. Right h emidiaphragm remains elevated. No pleural effusions are identified. Bony thorax is unremarkable. IMPRESSION: No significant change from the prior examination THIS IS AN ELECTRONICALLY VERIFIED FINAL REPORT 08/27/2023 6:01 AM - Electronically signed by Mikey Maurer MD
[2023-08-27] MEDS: DRUG FILTER EXTENSION SET ONE (07:15)
[2023-08-27] MEDS: MAG-OX TAB PO SCH (08:40)
[2023-08-27] MEDS: K-DUR TAB 20 MEQ PO SCH (08:41)
[2023-08-27] MEDS: LYRICA CAP 150 mg PO SCH (10:35)
--- NOTE | 2023-08-27 14:27 | DR.PROGNOT ---
HOSPITAL PROGRESS NOTE Progress Note for Day of: Progress Note Date: 08/27/23 Chief Complaint Chief Complaint: less coughing with stable chest x ray.. moderate abdominal pain mid and RT side , no nausea or vomiting ..KUB , dilated bowel loops . no BM but passing flatus good urine output . normal WBC . afebrile .. Past Medical Family Social History Past Med/Fam/Surg Hx: No changes since H&P Allergies: Allergies morphine Allergy (Verified 06/05/17 16:17) lorazepam [From Ativan] Adverse Reaction (Verified 08/03/23 01:27) Review Of Systems ROS: No change since H&P Vital Signs Vital Signs: Vital Signs Temperature 98.1 F Temperature 97.7 F Pulse Rate [Bilateral Brachial 100 ] Pulse Rate [Bilateral Brachial 84 ] Pulse Rate 98 Respiratory Rate 18 Respiratory Rate 18 Blood Pressure [Left Arm] 139/63 Blood Pressure [Left Arm] 138/62 O2 Sat by Pulse Oximetry 100 O2 Sat by Pulse Oximetry 100 O2 Sat by Pulse Oximetry 100 Physical Exam Oriented: Normal Eyes: Normal Respiratory: Rhonchi (bilateral ) GI:Auscultation: Decreased GI:Palpation: Other (mild distention and incisional hernia ..) GI: Tenderness: Other (full abdomen , moderate to severe tenderness RLQ and mid abdomen ) Mood Description: Calm Speech Pattern: Clear and Appropriate Laboratory and Diagnostics 08/27/23 04:35 08/27/23 04:35 Labs: 08/24/23 14:07 Sputum - Expectorated Sputum Sputum Culture - Final 08/24/23 14:07 Sputum - Expectorated Sputum - Final Laboratory WBC 6.0 X10^3/uL (3.6-10.0) 08/27/23 04:35 RBC 3.35 X10^6/uL (4.7-6.0) L 08/27/23 04:35 Hgb 10.1 g/dL (13.5-18.0) L 08/27/23 04:35 Hct 29.8 % (42.0-54.0) L 08/27/23 04:35 MCV 89.1 fL (80.0-100.0) 08/27/23 04:35 MCH 30.3 pg (27.0-34.0) 08/27/23 04:35 MCHC 34.0 g/dL (33.0-35.0) 08/27/23 04:35 RDW 14.0 % (11.6-16.5) 08/27/23 04:35 Plt Count 130 X10^3/uL (150.0-450.0) L 08/27/23 04:35 MPV 8.8 fL (7.4-11.0) 08/27/23 04:35 Neut % (Auto) 85.8 % (42.0-75.0) H 08/27/23 04:35 Lymph % (Auto) 3.0 % (21.0-51.0) L 08/27/23 04:35 [place] % (Auto) 3.4 % (0.0-13.0) 08/27/23 04:35 Eos % (Auto) 7.5 % (0.9-2.9) H 08/27/23 04:35 Baso % (Auto) 0.3 % (0.2-1.0) 08/27/23 04:35 Neut # (Auto) 5.1 x10^3/uL (2.2-4.8) H 08/27/23 04:35 Lymph # (Auto) 0.2 X10^3/uL (1.3-2.9) L 08/27/23 04:35 [place] # (Auto) 0.2 x10^3/uL (0.3-0.8) L 08/27/23 04:35 Eos # (Auto) 0.4 x10^3/uL (0.0-0.2) H 08/27/23 04:35 Baso # (Auto) 0.0 X10^3/uL (0.0-0.1) 08/27/23 04:35 Absolute Nucleated RBC 0.0 /100WBC 08/27/23 04:35 PT 14.1 SECONDS (11.8-14.3) 08/24/23 08:55 INR Target Range - 08/24/23 08:55 INR 1.11 (0.8-1.3) 08/24/23 08:55 APTT 27.5 SECONDS (22.9-36.5) 08/24/23 08:55 PTT Comment - 08/24/23 08:55 Fibrinogen 420 mg/dL (239-489) 08/24/23 08:55 Sodium 137 mmol/L (136-145) 08/27/23 04:35 Corrected Sodium 140 mmol/L (136-145) 08/27/23 04:35 Potassium 3.0 mmol/L (3.5-5.1) L 08/27/23 04:35 Chloride 101 mmol/L (98-107) 08/27/23 04:35 Carbon Dioxide 28.4 mmol/L (21-32) 08/27/23 04:35 BUN 14 mg/dL (7-18) 08/27/23 04:35 Creatinine 0.89 mg/dL (0.70-1.30) 08/27/23 04:35 Est GFR (MDRD) Af Amer > 60 (>60) 08/27/23 04:35 Est GFR (MDRD) Non-Af > 60 (>60) 08/27/23 04:35 Glucose 218 mg/dL (65-99) H 08/27/23 04:35 POC Glucose (mg/dL) 237 mg/dL (65-99) H 08/27/23 07:06 Lactic Acid 1.7 mmol/L (0.4-2.0) 08/25/23 13:18 Calcium 8.1 mg/dL (8.5-10.1) L 08/27/23 04:35 Corrected Calcium 9.8 mg/dL (8.5-10.1) 08/27/23 04:35 Phosphorus 2.0 mg/dL (2.6-4.7) L 08/26/23 04:45 Magnesium 1.7 mg/dL (2.0-2.9) L 08/27/23 04:35 Total Bilirubin 0.50 mg/dL (0.2-1.0) 08/27/23 04:35 AST 12 Units/L (15-37) L 08/27/23 04:35 ALT 8 Units/L (12-78) L 08/27/23 04:35 Alkaline Phosphatase 49 Units/L (46-116) 08/27/23 04:35 Creatine Kinase 68 Units/L (39-308) 08/24/23 08:55 Troponin I High Sens 6.8 ng/L (4.0-60.0) 08/24/23 08:55 Total Protein 5.4 g/dL (6.4-8.2) L 08/27/23 04:35 Albumin 1.9 g/dL (3.4-5.0) L 08/27/23 04:35 Globulin 3.5 g/dL (2.5-4.5) 08/27/23 04:35 Albumin/Globulin Ratio 0.5 Ratio (1.1-2.1) L 08/27/23 04:35 Prealbumin 9.6 mg/dL (18-35.7) L 08/27/23 04:35 Triglycerides 38 mg/dL (0-150) 08/26/23 04:45 Cholesterol 113 mg/dL (0-200) 08/24/23 08:55 LDL Cholesterol, Calc 43 mg/dL (0-100) 08/24/23 08:55 HDL Cholesterol 58 mg/dL (40-60) 08/24/23 08:55 Cholesterol/HDL Ratio 1.9 (0.0-5.0) 08/24/23 08:55 Specimen Type Clean catch urine 08/24/23 09:09 Urine Color Pale yellow (YELLOW) 08/24/23 09:09 Urine Appearance Clear (CLEAR) 08/24/23 09:09 Urine pH 6.0 (5.0 - 8.0) 08/24/23 09:09 Ur Specific [place] 1.015 (1.000-1.030) 08/24/23 09:09 Urine Protein Negative (NEGATIVE) 08/24/23 09:09 Urine Glucose (UA) Negative (NEGATIVE) 08/24/23 09:09 Urine Ketones Negative (NEGATIVE) 08/24/23 09:09 Urine Blood 2+ (NEGATIVE) 08/24/23 09:09 Urine Nitrite Negative (NEGATIVE) 08/24/23 09:09 Urine Bilirubin Negative (NEGATIVE) 08/24/23 09:09 Urine Urobilinogen Normal (NORMAL) 08/24/23 09:09 Ur Leukocyte Esterase Negative (NEGATIVE) 08/24/23 09:09 Urine RBC 0-2 /HPF (0-3) 08/24/23 09:09 Urine WBC 0-2 /HPF (0-5) 08/24/23 09:09 Ur Squamous Epith Cells Rare /HPF (NEGATIVE) 08/24/23 09:09 Urine Bacteria Trace /HPF (NEGATIVE) 08/24/23 09:09 Urine Mucus Rare /HPF (NEGATIVE) 08/24/23 09:09 Ur Culture Indicated? No/not indicated 08/24/23 09:09 Resp Viral Panel (PCR) Cancelled 08/24/23 14:07 Resp Viral Panel (PCR) See scanned report 08/24/23 14:07 Assessment and Plan 1: ruptured diverticulitis .stable on IVF, ABT and TPN. 2: recent pneumonia with excessive cough . 3: multiple abdominal surgeries with adhesions . Problem Patient Problems: Patient Problems (Updated 08/24/23 @ 12:10 by Jose Clifford) Perforated diverticulum of large intestine (Acute) K57.20
--- NOTE | 2023-08-27 14:51 | RAD ---
EXAM:KUBHISTORY:perforated bowel;COMPARISON:09/15/2023FINDINGS:Eval uation of the abdomen demonstrates similar mild gas-filled prominence of multiple small bowel loops. The diaphragm is not included in the field of view. No pathologic soft tissue calcification. No acute osseous abnormality.IMPRESSION:Similar mild gas-filled prominence of multiple small bowel loops.THIS IS AN ELECTRONICALLY VERIFIED FINAL REPORT08/27/2023 2:48 PM - Electronically signed by Mikey Maurer MD
[2023-08-27] MEDS: CLINIMIX 5 %/20 % 1,000 ML with MVI INJ (ADULT) 10 ML, TPN ELECTROLYTES 20 ML, POTASSIU... IV SCH (15:54)
[2023-08-27] MEDS: TYLENOL 325 MG TAB PO PRN (16:30)
[2023-08-27] MEDS: COLACE CAP 100 MG PO SCH (21:03)
[2023-08-27] MEDS: PROTONIX INJ 40 MG VIAL IVP SCH (21:03)
[2023-08-28 05:54] LABS: ALANINE AMINOTRANSFERASE 8 Units/L (12-78); ALBUMIN 1.9 g/dL (3.4-5.0); ALKALINE PHOSPHATASE 60 Units/L (46-116); ASPARTATE AMINO TRANSFERASE 24 Units/L (15-37); BLOOD UREA NITROGEN 15 mg/dL (7-18); CALCIUM 8.3 mg/dL (8.5-10.1); CARBON DIOXIDE 29.6 mmol/L (21-32); CHLORIDE 101 mmol/L (98-107); COR NA(FOR HYPERGLY) 140 mmol/L (136-145); CREATININE 0.97 mg/dL (0.70-1.30); GLUCOSE 289 mg/dL (65-99); POTASSIUM 3.8 mmol/L (3.5-5.1); SODIUM 135 mmol/L (136-145); TOTAL PROTEIN 5.8 g/dL (6.4-8.2); eGFR NON BLACK RACES > 60 (>60)
[2023-08-28] MEDS: PULMICORT NEB TX 0.5 MG NEB ONE (07:03)
--- NOTE | 2023-08-28 07:42 | EKG ---
Test Reason : IRREGULAR HEART RATE Blood Pressure : */* mmHG Vent. Rate : 104 BPM Atrial Rate : 104 BPM P-R Int : 178 ms QRS Dur : 90 ms QT Int : 318 ms P-R-T Axes : 8 -5 13 degrees QTc Int : 418 ms Sinus tachycardia Minimal voltage criteria for LVH, may be normal variant ( R in aVL ) Borderline ECG When compared with ECG of 24-AUG-2023 09:14, No significant change was found Confirmed by Vance Chambers MD ([id number]) on 08/28/2023 8:14:08 AM Referred By: Confirmed By: Vance Chambers MD
[2023-08-28] MEDS: LASIX IVP ONE ×2 (09:09→18:00)
--- NOTE | 2023-08-28 09:17 | DR.CONSULT ---
CONSULT Consultation for Day of: Date: 08/28/23 Chief Complaint Chief Complaint: abd pain/sob Allergies Allergies Allergy/AdvReac Type Severity Reaction Status Date / Time morphine Allergy Verified 06/05/17 16:17 lorazepam [From Ativan] AdvReac Verified 08/03/23 01:27 History of Present Illness History of Present Illness: in hosp for 4 days now with presumed rupt diverticuli- eating jello/getting parenteral food as well- asked to see for tachycardia- concern was VT but its st with aberrancy upon review of strips- sent to icu for worsening sob-no cp-cxr: B pneumonia-in/out: liters up- echo few weeks ago: lvh/good lv- Past Medical History Past Medical History: Alzheimers, Arthritis, Dementia, Depression and GERD Past Surgical History Surgical History: Appendectomy and Cholecystectomy Family History Family Medical History: Hypertension Social History Does patient currently use any type of tobacco product: No Have you used tobacco products in the last 12 months: No Type of Tobacco Use: None Does any household member use tobacco: No Alcohol Use: None Drug Use: None Medications Home Medications: morphine Allergy (Verified 06/05/17 16:17) lorazepam [From Ativan] Adverse Reaction (Verified 08/03/23 01:27) Physical Exam Vital Signs: Vital Signs Temperature 98.8 F Temperature 99.5 F Pulse Rate [Bilateral Brachial 99 ] Pulse Rate [Bilateral Brachial 100 ] Pulse Rate 80 Respiratory Rate 32 Respiratory Rate 20 Blood Pressure [Left Arm] 158/79 Blood Pressure [Left Arm] 153/75 O2 Sat by Pulse Oximetry 100 O2 Sat by Pulse Oximetry 100 O2 Sat by Pulse Oximetry 94 sob no jvd junky bs B cor: tachy/regular markedly swollen/hard abdomen minimal edema labs: hct 38 to 29.8 plt 130 k glu 250s cr 0.57 alb 1.9 fevef to 101.6 cxr: b infiltrates ekg: st lvh no chnage Plan (1) Perforated diverticulum of large intestine: Status: Acute (2) Acute respiratory failure with hypoxia: Status: Acute Plan: diuresis. ? increase antibiotics, check bnp/trop (3) Sinus tachycardia: Status: Acute Plan: add bb- check tsh (4) Hyperlipidemia: Status: Chronic Qualifiers: Hyperlipidemia type: mixed hyperlipidemia Qualified Code(s): E78.2 - Mixed hyperlipidemia
[2023-08-28] MEDS: LOPRESSOR TAB 25 MG PO SCH (09:52)
--- NOTE | 2023-08-28 10:37 | DR.PROGNOT ---
HOSPITAL PROGRESS NOTE Progress Note for Day of: Progress Note Date: 08/28/23 Chief Complaint Chief Complaint: Complaining of shortness of breath today. Less abdominal pain and less distention. Had a few episodes of irregular heartbeats and tachycardia. Dr. Chambers was consulted. Had low-grade fever yesterday with negative blood culture and normal lactic acid. BUN/creatinine, electrolytes and CBC are within normal limits. Past Medical Family Social History Past Med/Fam/Surg Hx: No changes since H&P Changes in Past Med/Fam/Surg Hx: May be having fluid overload. Allergies: Allergies morphine Allergy (Verified 06/05/17 16:17) lorazepam [From Ativan] Adverse Reaction (Verified 08/03/23 01:27) Review Of Systems ROS: No change since H&P Vital Signs Vital Signs: Vital Signs Temperature 98.8 F Temperature 99.5 F Pulse Rate [Bilateral Brachial 99 ] Pulse Rate [Bilateral Brachial 100 ] Pulse Rate 100 Pulse Rate 80 Respiratory Rate 32 Respiratory Rate 20 Blood Pressure [Left Arm] 158/79 Blood Pressure [Left Arm] 153/75 O2 Sat by Pulse Oximetry 94 O2 Sat by Pulse Oximetry 100 O2 Sat by Pulse Oximetry 100 O2 Sat by Pulse Oximetry 94 Physical Exam Oriented: Normal Eyes: Normal Respiratory: Rhonchi (bilateral ) Cardiovascular: Tachycardia and Other (Few irregularities with extra beats.) GI:Auscultation: Decreased GI:Palpation: Other (mild distention and incisional hernia ..) GI: Tenderness: Other (full abdomen , moderate to severe tenderness RLQ and mid abdomen ) Mood Description: Calm Speech Pattern: Clear and Appropriate Laboratory and Diagnostics 08/27/23 04:35 08/28/23 04:45 Labs: 08/24/23 14:07 Sputum - Expectorated Sputum Sputum Culture - Final 08/24/23 14:07 Sputum - Expectorated Sputum - Final Laboratory WBC 6.0 X10^3/uL (3.6-10.0) 08/27/23 04:35 RBC 3.35 X10^6/uL (4.7-6.0) L 08/27/23 04:35 Hgb 10.1 g/dL (13.5-18.0) L 08/27/23 04:35 Hct 29.8 % (42.0-54.0) L 08/27/23 04:35 MCV 89.1 fL (80.0-100.0) 08/27/23 04:35 MCH 30.3 pg (27.0-34.0) 08/27/23 04:35 MCHC 34.0 g/dL (33.0-35.0) 08/27/23 04:35 RDW 14.0 % (11.6-16.5) 08/27/23 04:35 Plt Count 130 X10^3/uL (150.0-450.0) L 08/27/23 04:35 MPV 8.8 fL (7.4-11.0) 08/27/23 04:35 Neut % (Auto) 85.8 % (42.0-75.0) H 08/27/23 04:35 Lymph % (Auto) 3.0 % (21.0-51.0) L 08/27/23 04:35 [place] % (Auto) 3.4 % (0.0-13.0) 08/27/23 04:35 Eos % (Auto) 7.5 % (0.9-2.9) H 08/27/23 04:35 Baso % (Auto) 0.3 % (0.2-1.0) 08/27/23 04:35 Neut # (Auto) 5.1 x10^3/uL (2.2-4.8) H 08/27/23 04:35 Lymph # (Auto) 0.2 X10^3/uL (1.3-2.9) L 08/27/23 04:35 [place] # (Auto) 0.2 x10^3/uL (0.3-0.8) L 08/27/23 04:35 Eos # (Auto) 0.4 x10^3/uL (0.0-0.2) H 08/27/23 04:35 Baso # (Auto) 0.0 X10^3/uL (0.0-0.1) 08/27/23 04:35 Absolute Nucleated RBC 0.0 /100WBC 08/27/23 04:35 PT 14.1 SECONDS (11.8-14.3) 08/24/23 08:55 INR Target Range - 08/24/23 08:55 INR 1.11 (0.8-1.3) 08/24/23 08:55 APTT 27.5 SECONDS (22.9-36.5) 08/24/23 08:55 PTT Comment - 08/24/23 08:55 Fibrinogen 420 mg/dL (239-489) 08/24/23 08:55 Sodium 135 mmol/L (136-145) L 08/28/23 04:45 Corrected Sodium 140 mmol/L (136-145) 08/28/23 04:45 Potassium 3.8 mmol/L (3.5-5.1) 08/28/23 04:45 Chloride 101 mmol/L (98-107) 08/28/23 04:45 Carbon Dioxide 29.6 mmol/L (21-32) 08/28/23 04:45 BUN 15 mg/dL (7-18) 08/28/23 04:45 Creatinine 0.97 mg/dL (0.70-1.30) 08/28/23 04:45 Est GFR (MDRD) Af Amer > 60 (>60) 08/28/23 04:45 Est GFR (MDRD) Non-Af > 60 (>60) 08/28/23 04:45 Glucose 289 mg/dL (65-99) H 08/28/23 04:45 POC Glucose (mg/dL) 271 mg/dL (65-99) H 08/28/23 06:16 Lactic Acid 1.5 mmol/L (0.4-2.0) 08/27/23 18:27 Calcium 8.3 mg/dL (8.5-10.1) L 08/28/23 04:45 Corrected Calcium 10.0 mg/dL (8.5-10.1) 08/28/23 04:45 Phosphorus 2.0 mg/dL (2.6-4.7) L 08/26/23 04:45 Magnesium 1.7 mg/dL (2.0-2.9) L 08/27/23 04:35 Total Bilirubin 0.40 mg/dL (0.2-1.0) 08/28/23 04:45 AST 24 Units/L (15-37) 08/28/23 04:45 ALT 8 Units/L (12-78) L 08/28/23 04:45 Alkaline Phosphatase 60 Units/L (46-116) 08/28/23 04:45 Creatine Kinase 68 Units/L (39-308) 08/24/23 08:55 Troponin I High Sens 6.8 ng/L (4.0-60.0) 08/24/23 08:55 Total Protein 5.8 g/dL (6.4-8.2) L 08/28/23 04:45 Albumin 1.9 g/dL (3.4-5.0) L 08/28/23 04:45 Globulin 3.9 g/dL (2.5-4.5) 08/28/23 04:45 Albumin/Globulin Ratio 0.5 Ratio (1.1-2.1) L 08/28/23 04:45 Prealbumin 9.6 mg/dL (18-35.7) L 08/27/23 04:35 Triglycerides 38 mg/dL (0-150) 08/26/23 04:45 Cholesterol 113 mg/dL (0-200) 08/24/23 08:55 LDL Cholesterol, Calc 43 mg/dL (0-100) 08/24/23 08:55 HDL Cholesterol 58 mg/dL (40-60) 08/24/23 08:55 Cholesterol/HDL Ratio 1.9 (0.0-5.0) 08/24/23 08:55 Specimen Type Clean catch urine 08/24/23 09:09 Urine Color Pale yellow (YELLOW) 08/24/23 09:09 Urine Appearance Clear (CLEAR) 08/24/23 09:09 Urine pH 6.0 (5.0 - 8.0) 08/24/23 09:09 Ur Specific [place] 1.015 (1.000-1.030) 08/24/23 09:09 Urine Protein Negative (NEGATIVE) 08/24/23 09:09 Urine Glucose (UA) Negative (NEGATIVE) 08/24/23 09:09 Urine Ketones Negative (NEGATIVE) 08/24/23 09:09 Urine Blood 2+ (NEGATIVE) 08/24/23 09:09 Urine Nitrite Negative (NEGATIVE) 08/24/23 09:09 Urine Bilirubin Negative (NEGATIVE) 08/24/23 09:09 Urine Urobilinogen Normal (NORMAL) 08/24/23 09:09 Ur Leukocyte Esterase Negative (NEGATIVE) 08/24/23 09:09 Urine RBC 0-2 /HPF (0-3) 08/24/23 09:09 Urine WBC 0-2 /HPF (0-5) 08/24/23 09:09 Ur Squamous Epith Cells Rare /HPF (NEGATIVE) 08/24/23 09:09 Urine Bacteria Trace /HPF (NEGATIVE) 08/24/23 09:09 Urine Mucus Rare /HPF (NEGATIVE) 08/24/23 09:09 Ur Culture Indicated? No/not indicated 08/24/23 09:09 Resp Viral Panel (PCR) Cancelled 08/24/23 14:07 Resp Viral Panel (PCR) See scanned report 08/24/23 14:07 Assessment and Plan 1: ruptured diverticulitis .stable on IVF, ABT and TPN. 2: recent pneumonia with excessive cough . On diuretics to manage fluid overload, same IV antibiotics. 3: multiple abdominal surgeries with adhesions . Problem Patient Problems: Patient Problems Perforated diverticulum of large intestine (Acute) K57.20
--- NOTE | 2023-08-28 10:43 | RAD ---
EXAM:CHEST, 1 VIEWHISTORY:SOB;COMPARISON:08/27/2023 r.br.br.br.br.br.br.br line unchanged with tip in the SVC right atrial junction. Cardiomegaly. Worsening bilateral infiltrates. No pneumothorax, new infiltrate or other change noted. EKG leads overlie the chest. Poor inspiration.IMPRESSION:Worsening bilateral infiltrates. Follow-up recommended.THIS IS AN ELECTRONICALLY VERIFIED FINAL REPORT08/28/2023 10:39 AM - Electronically signed by Valdo Reyes MD
[2023-08-28] MEDS: DRUG FILTER EXTENSION SET ONE (12:15)
[2023-08-28 12:37] LABS: TSH (3RD GENERATION) 2.444 uIU/mL (0.358-3.74)
[2023-08-28] MEDS ORDERED: BUTT CREAM (COMPOUND) TOP PRN (13:34)
[2023-08-28] MEDS: ATIVAN TAB 1 MG PO PRN (17:56)
[2023-08-28 18:51] LABS: BILIRUBIN,URINE NEGATIVE (NEGATIVE); BLOOD/HEMOGLOBIN,URINE 2+ (NEGATIVE); GLUCOSE, URINE 2+ (NEGATIVE); KETONES,URINE NEGATIVE (NEGATIVE); LEUKOCYTE ESTERASE ,URINE NEGATIVE (NEGATIVE); NITRITES,URINE NEGATIVE (NEGATIVE); PROTEIN,URINE 1+ (NEGATIVE); UROBILINOGEN,URINE NORMAL (NORMAL)
[2023-08-28 18:53] LABS: APPEARANCE,URINE CLEAR (CLEAR); COLOR,URINE YELLOW (YELLOW)
[2023-08-28 19:05] LABS: BACTERIA,URINE TRACE /HPF (NEGATIVE); COARSE GRANULAR CASTS,URINE FEW /HPF (NEGATIVE); RBC,URINE 0-2 /HPF (0-3); SQUAMOUS EPITHELIAL CELL,UR RARE /HPF (NEGATIVE)
[2023-08-28] MEDS ORDERED: NS 100 ML IV 100 ML ONE (21:22)
[2023-08-29 05:49] LABS: BASOPHILS # (AUTO) 0.1 X10^3/uL (0.0-0.1); BASOPHILS % (AUTO) 1.1 % (0.2-1.0); EOSINOPHILS # (AUTO) 0.5 x10^3/uL (0.0-0.2); EOSINOPHILS % (AUTO) 7.1 % (0.9-2.9); HEMATOCRIT 37.5 % (42.0-54.0); HEMOGLOBIN 12.3 g/dL (13.5-18.0); LYMPHOCYTES # (AUTO) 0.2 X10^3/uL (1.3-2.9); LYMPHOCYTES % (AUTO) 2.5 % (21.0-51.0); MEAN CORPUSCULAR HEMOGLOBIN 29.2 pg (27.0-34.0); MEAN CORPUSCULAR HGB CONC 32.8 g/dL (33.0-35.0); MEAN CORPUSCULAR VOLUME 88.8 fL (80.0-100.0); MEAN PLATELET VOLUME 8.4 fL (7.4-11.0); MONOCYTES # (AUTO) 0.3 x10^3/uL (0.3-0.8); MONOCYTES % (AUTO) 4.8 % (0.0-13.0); NEUTROPHILS # (AUTO) 5.9 x10^3/uL (2.2-4.8); NEUTROPHILS % (AUTO) 84.5 % (42.0-75.0); PLATELET COUNT 252 X10^3/uL (150.0-450.0); RED BLOOD COUNT 4.23 X10^6/uL (4.7-6.0); RED CELL DISTRIBUTION WIDTH 14.1 % (11.6-16.5)
[2023-08-29 06:04] LABS: MAGNESIUM 2.7 mg/dL (2.0-2.9); PHOSPHORUS 2.6 mg/dL (2.6-4.7)
[2023-08-29 06:08] LABS: ALANINE AMINOTRANSFERASE 8 Units/L (12-78); ALBUMIN 2.2 g/dL (3.4-5.0); ALKALINE PHOSPHATASE 109 Units/L (46-116); ASPARTATE AMINO TRANSFERASE 48 Units/L (15-37); BLOOD UREA NITROGEN 20 mg/dL (7-18); CALCIUM 8.7 mg/dL (8.5-10.1); CHLORIDE 100 mmol/L (98-107); COR CA(FOR HYPOALB) 10.1 mg/dL (8.5-10.1); COR NA(FOR HYPERGLY) 140 mmol/L (136-145); CREATININE 1.14 mg/dL (0.70-1.30); GLUCOSE 215 mg/dL (65-99); POTASSIUM 3.9 mmol/L (3.5-5.1); SODIUM 137 mmol/L (136-145); TOTAL PROTEIN 6.7 g/dL (6.4-8.2); eGFR NON BLACK RACES > 60 (>60)
[2023-08-29] MEDS ORDERED: DIPRIVAN PREMIX 1 GRAM IV 1,000 MG/100 ML VIAL ONE (07:55)
[2023-08-29] MEDS: DIPRIVAN PREMIX 1 GRAM IV 1,000 MG/100 ML VIAL IV PRN (08:00)
[2023-08-29] MEDS: DILAUDID INJ IVP ONE (08:10)
--- NOTE | 2023-08-29 08:11 | RAD ---
EXAM: CHEST, 1 VIEW HISTORY: ET TUBE PLACEMENT; COMPARISON: 08/28/2023 TECHNIQUE: Endotracheal tube tip is at the level of the head of the clavicles above the camille. Right-sided PICC line is unchanged. Cardiomegaly is noted. Slight worsening of bilateral infiltrates. No pneumothorax, new infiltrate or other change noted. EKG leads overlie the chest. Distended stomach IMPRESSION: Endotracheal tube tip at the level of the head of the clavicles. Slight worsening of bilateral infiltrates. Follow-up recommended THIS IS AN ELECTRONICALLY VERIFIED FINAL REPORT 08/29/2023 8:08 AM - Electronically signed by MD MAXIMINO Larios
[2023-08-29] MEDS: VERSED 100 MG in NS 100 ML IV 80 ML IV PRN (08:15)
[2023-08-29 08:40] LABS: ABG BASE EXCESS 1.4 mmol/L (-2.0-2.0); ABG HCO3 30.1 mmol/L (22-26)
[2023-08-29 08:41] LABS: ABG ALLEN TEST POS
[2023-08-29] MEDS ORDERED: NS 500 ML IV 500 ML IV ONE (09:18)
[2023-08-29] MEDS: NS 1,000 ML IV 0 ML ONE (09:20)
--- NOTE | 2023-08-29 09:23 | RAD ---
EXAM:CHEST, 1 VIEWHISTORY:OG TUBE PLACEMENT;COMPARISON:08/29/2023TECHNIQUE: .br.br.br.br curvature of the stomach. PICC line with tip in the SVC right atrial junction. Endotracheal tube tip at the head of the clavicles. Apices not included on the film. Cardiomegaly. Diffuse bilateral infiltrates unchanged. No pneumothorax, new infiltrate or other change noted. EKG leads overlie the chest.IMPRESSION:Nasogastric tube tip along the greater curvature of the stomach. Remaining support lines and catheters unchanged.No change in bilateral infiltrates. Follow-up recommendedTHIS IS AN ELECTRONICALLY VERIFIED FINAL REPORT08/29/2023 9:20 AM - Electronically signed by Valdo Reyes MD
[2023-08-29] MEDS: NS 500 ML IV 500 ML IV ONE (09:25)
[2023-08-29] MEDS ORDERED: DUKE'S Magic Mouthwash (nyst/dex/ben/doxyc) MT PRN (09:51)
[2023-08-29] MEDS ORDERED: AVELOX TAB 400 MG PO SCH (10:00)
--- NOTE | 2023-08-29 10:08 | DR.UPDATE ---
H&P Update Prescription drug monitoring program results: PDMP was not reviewed H&P Reviewed: Yes Any changes to H&P?: No Patient was examined?: Yes Vital Signs: Temp Pulse Pulse Resp BP Pulse Ox O2 Del Method 08/29/23 07:19 31 H 08/29/23 05:44 Bi-pap 08/29/23 06:00 114 H 35 H 165/80 100 Bi-pap 08/29/23 05:00 111 H 38 H 164/72 94 L Bi-pap 08/29/23 05:13 107 H 93 L 08/29/23 05:09 08/29/23 04:00 98.9 F 97 H 35 H 158/97 98 Bi-pap 08/29/23 03:09 Bi-pap 08/29/23 03:00 94 H 32 H 137/68 100 Bi-pap 08/29/23 02:00 96 H 32 H 152/87 100 Bi-pap 08/29/23 02:10 Bi-pap 08/29/23 01:00 113 H 40 H 110/57 85 L Bi-pap 08/29/23 00:08 84 94 L 08/29/23 00:06 08/29/23 00:00 99.3 F 26 H 111/63 93 L Bi-pap 08/28/23 21:10 30 H 08/28/23 23:00 83 28 H 129/60 91 L Bi-pap 08/28/23 19:00 Bi-pap 08/28/23 22:15 Bi-pap 08/28/23 22:00 99.9 F H 83 27 H 113/62 92 L Bi-pap 08/28/23 21:00 114 H 34 H 134/66 92 L Bi-pap 08/28/23 20:00 103.3 F H 109 H 36 H 145/67 91 L Bi-pap 08/28/23 19:00 110 H 35 H 147/64 92 L Bi-pap 08/28/23 20:40 114 H 93 L 08/28/23 20:37 08/28/23 20:37 Bi-pap 08/28/23 20:10 36 H 08/28/23 18:00 114 H 40 H 182/72 92 L Bi-pap 08/28/23 17:00 98.3 F 109 H 40 H 145/65 91 L Bi-pap 08/28/23 14:40 100.9 F H 08/28/23 16:31 92 H 95 08/28/23 15:40 25 H 08/28/23 15:11 25 H 08/28/23 16:00 100.2 F H 93 H 32 H 142/70 95 Bi-pap 08/28/23 15:00 93 H 29 H 135/63 96 Bi-pap 08/28/23 13:35 40 H 95 Bi-pap 08/28/23 13:39 Bi-pap 08/28/23 13:39 08/28/23 13:00 98 H 36 H 154/74 100 Oxy Mask 08/28/23 13:01 100 H 100 08/28/23 10:00 107 H 37 H 153/70 100 Oxy Mask 08/28/23 09:00 92 H 31 H 152/68 100 Oxy Mask 08/28/23 12:00 97.8 F 93 H 29 H 147/65 100 Oxy Mask 08/28/23 11:00 97.8 F 93 H 36 H 139/77 100 Oxy Mask 08/28/23 09:25 100 H 94 L 08/28/23 09:24 Oxy Mask 08/28/23 08:10 Oxy Mask 08/28/23 14:41 32 H 08/28/23 14:40 32 H 08/28/23 08:10 98.8 F 99 H 32 H 158/79 100 Oxy Mask 08/28/23 05:31 80 100 08/28/23 04:00 99.5 F 100 H 20 153/75 94 L Nasal Cannula 08/28/23 02:57 Oxy Mask 08/28/23 02:17 Nasal Cannula 08/28/23 00:00 98.3 F 98 H 20 136/64 98 Nasal Cannula 08/27/23 20:25 100 H 99 08/27/23 20:25 Nasal Cannula 08/27/23 19:53 99.0 F 100 H 21 128/68 99 Nasal Cannula 08/27/23 19:00 Nasal Cannula 08/27/23 17:30 18 08/27/23 16:00 101.6 F H 120 H 24 181/80 94 L Nasal Cannula 08/27/23 12:00 98.1 F 100 H 18 139/63 100 Nasal Cannula 08/27/23 09:20 98 H 100 08/27/23 09:20 Nasal Cannula 08/27/23 08:00 97.7 F 84 18 138/62 100 Nasal Cannula 08/27/23 08:46 Nasal Cannula 08/27/23 16:30 18 08/27/23 04:47 20 08/27/23 04:00 98.0 F 87 16 144/65 100 Nasal Cannula 08/26/23 23:22 97.8 F 92 H 16 134/66 100 Nasal Cannula 08/26/23 21:29 98 H 99 08/26/23 21:29 Nasal Cannula 08/27/23 04:17 16 08/26/23 19:00 Nasal Cannula 08/26/23 19:49 98.0 F 104 H 18 137/63 100 Nasal Cannula 08/26/23 18:36 20 08/26/23 18:06 20 08/26/23 16:00 98.1 F 96 H 16 140/63 100 Nasal Cannula 08/26/23 12:00 98.3 F 99 H 16 124/61 100 Nasal Cannula O2 Flow Rate FiO2 08/29/23 07:19 08/29/23 05:44 100 08/29/23 06:00 100 08/29/23 05:00 80 08/29/23 05:13 08/29/23 05:09 80 08/29/23 04:00 80 08/29/23 03:09 80 08/29/23 03:00 80 08/29/23 02:00 90 08/29/23 02:10 90 08/29/23 01:00 70 08/29/23 00:08 08/29/23 00:06 55 08/29/23 00:00 55 08/28/23 21:10 08/28/23 23:00 55 08/28/23 19:00 50 08/28/23 22:15 55 08/28/23 22:00 55 08/28/23 21:00 50 08/28/23 20:00 50 08/28/23 19:00 50 08/28/23 20:40 08/28/23 20:37 50 08/28/23 20:37 15 50 08/28/23 20:10 08/28/23 18:00 08/28/23 17:00 08/28/23 14:40 08/28/23 16:31 08/28/23 15:40 08/28/23 15:11 08/28/23 16:00 08/28/23 15:00 08/28/23 13:35 08/28/23 13:39 50 08/28/23 13:39 50 08/28/23 13:00 15 08/28/23 13:01 08/28/23 10:00 15 08/28/23 09:00 15 08/28/23 12:00 15 08/28/23 11:00 15 08/28/23 09:25 08/28/23 09:24 15 100 08/28/23 08:10 15 08/28/23 14:41 08/28/23 14:40 08/28/23 08:10 15 08/28/23 05:31 08/28/23 04:00 2 08/28/23 02:57 15 81 08/28/23 02:17 3 32 08/28/23 00:00 2 08/27/23 20:25 08/27/23 20:25 2 28 08/27/23 19:53 2 08/27/23 19:00 2 08/27/23 17:30 08/27/23 16:00 2 08/27/23 12:00 2 08/27/23 09:20 08/27/23 09:20 2 28 08/27/23 08:00 2 08/27/23 08:46 2 08/27/23 16:30 08/27/23 04:47 08/27/23 04:00 2 08/26/23 23:22 2 08/26/23 21:29 08/26/23 21:29 2 28 08/27/23 04:17 08/26/23 19:00 2 08/26/23 19:49 2 08/26/23 18:36 08/26/23 18:06 08/26/23 16:00 2 08/26/23 12:00 2 Procedures (ALL) - Arterial Line Consent obtained: verbal consent Time out performed: Yes Size(gauge): 20 Technique used: guided wire technique (with ultrasound guidance) Patient tolerated procedure: Yes Site: right, radial
[2023-08-29 10:34] LABS: ABG BASE EXCESS 1.8 mmol/L (-2.0-2.0)
[2023-08-29 10:37] LABS: ABG HCO3 30.5 mmol/L (22-26)
[2023-08-29] MEDS: LEVOPHED 8 MG/250 ML IV *PREMIX 8 MG/250 ML PLAST..BAG IV PRN (10:56)
[2023-08-29] MEDS: LASIX IVP SCH (12:26)
[2023-08-29] MEDS: AVELOX IV 400 MG/250 ML BAG 400 MG/250 ML PIGGYBACK IV SCH (12:28)
--- NOTE | 2023-08-29 12:30 | NOTE.SOAP ---
Soap Note Note for Day of Date of Exam: 08/29/23 Subjective Data Subjective Data: resp status deteriorated now intubated-also on pressors- lasix given yesterday for positive fluid status as liters up over hospitilization- with normal lv/normal bnp: not sign chf to cause deterioration Objective Data Objective Data: I/O yesterday after lasix :-900 t max 103- labs to note: positive lactic acid yesterday, 3 trops negative, tsh normal, bnp normal echo few weeks ago: norml Lv labs today: wbc 7k hct 29.8 up to 37.5 after lasix cxr: b infiltrates intubated/sedated puma bs B, hr 85 now sedated, abd : less tense, minimal edema w pneumatic device on Assessment Assessment: sepsis,resp failure, ruptured bowel, hypotension on pressors (bad prognosis) Plan Plan: support/antibiotics/try to get fluid off gingerly if bp allows
[2023-08-29] MEDS: DIPRIVAN VIAL 20 ML ONE (13:50)
[2023-08-29] MEDS: LACRI-LUBE S.O.P. AFFEYE SCH (14:07)
--- NOTE | 2023-08-29 16:10 | DR.PROGNOT ---
HOSPITAL PROGRESS NOTE Progress Note for Day of: Progress Note Date: 08/29/23 Chief Complaint Chief Complaint: Was tachypneic overnight, on BiPAP, had to be intubated with subsequent hypotension required using small dose of Levophed , BP around 100 now . Pt was lethargic prior to intubation. WBC 4.2, hemoglobin 12.3, hematocrit 37.5, electrolytes are normal, BUN 20, creatinine 1.14, blood sugar 139, BNP normal, troponin 69.6. Normal lactic acid today. Blood pressure is being monitored with art line, Dr. Benitez is managing the respirator. Past Medical Family Social History Past Med/Fam/Surg Hx: No changes since H&P Changes in Past Med/Fam/Surg Hx: having fluid overload. Allergies: Allergies morphine Allergy (Verified 06/05/17 16:17) lorazepam [From Ativan] Adverse Reaction (Verified 08/03/23 01:27) Review Of Systems ROS: No change since H&P Vital Signs Vital Signs: Vital Signs Pulse Rate [Bilateral Brachial 104 ] Pulse Rate [Bilateral Brachial 93 ] Pulse Rate [Bilateral Brachial 100 ] Pulse Rate [Bilateral Brachial 104 ] Pulse Rate [Bilateral Brachial 104 ] Pulse Rate [Bilateral Brachial 104 ] Pulse Rate [Bilateral Brachial 104 ] Pulse Rate 100 Pulse Rate 100 Pulse Rate 100 Pulse Rate 101 Pulse Rate 101 Pulse Rate 101 Pulse Rate 101 Pulse Rate 101 Pulse Rate 101 Pulse Rate 101 Pulse Rate 101 Pulse Rate 102 Pulse Rate 102 Pulse Rate 103 Pulse Rate 104 Pulse Rate 104 Pulse Rate 103 Pulse Rate 103 Pulse Rate 101 Pulse Rate 101 Pulse Rate 102 Pulse Rate 102 Pulse Rate 100 Pulse Rate 96 Pulse Rate 95 Pulse Rate 96 Pulse Rate 96 Pulse Rate 95 Pulse Rate 96 Pulse Rate 95 Pulse Rate 95 Pulse Rate 95 Pulse Rate 96 Pulse Rate 94 Pulse Rate 94 Pulse Rate 94 Pulse Rate 93 Pulse Rate 93 Pulse Rate 93 Pulse Rate 93 Pulse Rate 93 Pulse Rate 93 Pulse Rate 92 Pulse Rate 92 Pulse Rate 92 Pulse Rate 92 Pulse Rate 91 Pulse Rate 87 Pulse Rate 87 Pulse Rate 85 Respiratory Rate 19 Respiratory Rate 19 Respiratory Rate 19 Respiratory Rate 18 Respiratory Rate 19 Respiratory Rate 17 Respiratory Rate 16 Respiratory Rate 19 Respiratory Rate 17 Respiratory Rate 17 Respiratory Rate 17 Respiratory Rate 16 Respiratory Rate 17 Respiratory Rate 17 Respiratory Rate 17 Respiratory Rate 16 Respiratory Rate 17 Respiratory Rate 17 Respiratory Rate 17 Respiratory Rate 16 Respiratory Rate 17 Respiratory Rate 17 Respiratory Rate 17 Respiratory Rate 16 Respiratory Rate 15 Respiratory Rate 16 Respiratory Rate 17 Respiratory Rate 15 Respiratory Rate 16 Respiratory Rate 16 Respiratory Rate 15 Respiratory Rate 33 Respiratory Rate 16 Respiratory Rate 28 Respiratory Rate 31 Respiratory Rate 31 Respiratory Rate 29 Respiratory Rate 25 Respiratory Rate 23 Respiratory Rate 26 Respiratory Rate 24 Respiratory Rate 33 Respiratory Rate 20 Respiratory Rate 22 Respiratory Rate 24 Respiratory Rate 35 Respiratory Rate 27 Respiratory Rate 29 Respiratory Rate 23 Respiratory Rate 25 Respiratory Rate 21 Respiratory Rate 22 Respiratory Rate 21 Respiratory Rate 37 Respiratory Rate 17 Respiratory Rate 17 Respiratory Rate 16 Respiratory Rate 19 Respiratory Rate 37 Respiratory Rate 25 Respiratory Rate 23 Respiratory Rate 21 Respiratory Rate 23 Respiratory Rate 23 Respiratory Rate 23 Respiratory Rate 36 Blood Pressure [Left Arm] 124/59 Blood Pressure [Left Arm] 74/46 Blood Pressure [Left Arm] 61/38 Blood Pressure [Left Arm] 97/49 Blood Pressure [Left Arm] 97/55 Blood Pressure [Left Arm] 97/54 Blood Pressure [Left Arm] 111/54 Blood Pressure 119/58 Blood Pressure 118/56 Blood Pressure 118/59 Blood Pressure 123/59 Blood Pressure 119/56 Blood Pressure 118/57 Blood Pressure 105/58 Blood Pressure 87/52 Blood Pressure 85/53 Blood Pressure 107/57 Blood Pressure 100/53 Blood Pressure 101/56 Blood Pressure 101/52 Blood Pressure 104/54 Blood Pressure 101/53 Blood Pressure 116/55 Blood Pressure 114/58 Blood Pressure 110/54 Blood Pressure 115/58 Blood Pressure 108/54 Blood Pressure 107/51 Blood Pressure 113/55 Blood Pressure 118/56 Blood Pressure 112/56 Blood Pressure 116/54 Blood Pressure 108/55 Blood Pressure 117/54 Blood Pressure 113/52 Blood Pressure 94/51 Blood Pressure 121/56 Blood Pressure 117/54 Blood Pressure 111/54 Blood Pressure 112/56 Blood Pressure 109/51 Blood Pressure 109/55 Blood Pressure 113/59 Blood Pressure 99/53 Blood Pressure 114/57 Blood Pressure 111/55 Blood Pressure 98/52 Blood Pressure 112/56 Blood Pressure 105/53 Blood Pressure 100/59 Blood Pressure 96/54 Blood Pressure 90/54 Blood Pressure 81/43 Blood Pressure 97/52 O2 Sat by Pulse Oximetry 99 O2 Sat by Pulse Oximetry 99 O2 Sat by Pulse Oximetry 99 O2 Sat by Pulse Oximetry 99 O2 Sat by Pulse Oximetry 99 O2 Sat by Pulse Oximetry 100 O2 Sat by Pulse Oximetry 99 O2 Sat by Pulse Oximetry 99 O2 Sat by Pulse Oximetry 99 O2 Sat by Pulse Oximetry 98 O2 Sat by Pulse Oximetry 99 O2 Sat by Pulse Oximetry 99 O2 Sat by Pulse Oximetry 99 O2 Sat by Pulse Oximetry 98 O2 Sat by Pulse Oximetry 99 O2 Sat by Pulse Oximetry 99 O2 Sat by Pulse Oximetry 99 O2 Sat by Pulse Oximetry 99 O2 Sat by Pulse Oximetry 100 O2 Sat by Pulse Oximetry 100 O2 Sat by Pulse Oximetry 100 O2 Sat by Pulse Oximetry 100 O2 Sat by Pulse Oximetry 100 O2 Sat by Pulse Oximetry 98 O2 Sat by Pulse Oximetry 97 O2 Sat by Pulse Oximetry 99 O2 Sat by Pulse Oximetry 99 O2 Sat by Pulse Oximetry 99 O2 Sat by Pulse Oximetry 99 O2 Sat by Pulse Oximetry 99 O2 Sat by Pulse Oximetry 98 O2 Sat by Pulse Oximetry 98 O2 Sat by Pulse Oximetry 98 O2 Sat by Pulse Oximetry 97 O2 Sat by Pulse Oximetry 97 O2 Sat by Pulse Oximetry 97 O2 Sat by Pulse Oximetry 97 O2 Sat by Pulse Oximetry 97 O2 Sat by Pulse Oximetry 97 O2 Sat by Pulse Oximetry 97 O2 Sat by Pulse Oximetry 97 O2 Sat by Pulse Oximetry 96 O2 Sat by Pulse Oximetry 96 O2 Sat by Pulse Oximetry 96 O2 Sat by Pulse Oximetry 95 O2 Sat by Pulse Oximetry 94 O2 Sat by Pulse Oximetry 96 O2 Sat by Pulse Oximetry 100 O2 Sat by Pulse Oximetry 100 O2 Sat by Pulse Oximetry 100 O2 Sat by Pulse Oximetry 90 O2 Sat by Pulse Oximetry 100 O2 Sat by Pulse Oximetry 100 O2 Sat by Pulse Oximetry 98 O2 Sat by Pulse Oximetry 88 O2 Sat by Pulse Oximetry 86 O2 Sat by Pulse Oximetry 84 Physical Exam Oriented: Other (Patient is on respirator and sedated) Eyes: Normal Respiratory: Rhonchi (bilateral breath sounds are positive with scattered rhonchi) Cardiovascular: Tachycardia and Other (Few irregularities with extra beats.) GI:Auscultation: Decreased GI:Palpation: Other (Soft abdomen with positive bowel sounds but hypoactive.) Laboratory and Diagnostics 08/29/23 04:50 08/29/23 04:50 Labs: 08/29/23 10:10 Sputum - Endotracheal Wash - Final 08/27/23 18:35 Blood Blood Culture - Preliminary 08/27/23 18:27 Blood Blood Culture - Preliminary 08/24/23 14:07 Sputum - Expectorated Sputum Sputum Culture - Final 08/24/23 14:07 Sputum - Expectorated Sputum - Final Laboratory WBC 7.0 X10^3/uL (3.6-10.0) 08/29/23 04:50 RBC 4.23 X10^6/uL (4.7-6.0) L 08/29/23 04:50 Hgb 12.3 g/dL (13.5-18.0) L D 08/29/23 04:50 Hct 37.5 % (42.0-54.0) L 08/29/23 04:50 MCV 88.8 fL (80.0-100.0) 08/29/23 04:50 MCH 29.2 pg (27.0-34.0) 08/29/23 04:50 MCHC 32.8 g/dL (33.0-35.0) L 08/29/23 04:50 RDW 14.1 % (11.6-16.5) 08/29/23 04:50 Plt Count 252 X10^3/uL (150.0-450.0) 08/29/23 04:50 MPV 8.4 fL (7.4-11.0) 08/29/23 04:50 Neut % (Auto) 84.5 % (42.0-75.0) H 08/29/23 04:50 Lymph % (Auto) 2.5 % (21.0-51.0) L 08/29/23 04:50 Ross % (Auto) 4.8 % (0.0-13.0) 08/29/23 04:50 Eos % (Auto) 7.1 % (0.9-2.9) H 08/29/23 04:50 Baso % (Auto) 1.1 % (0.2-1.0) H 08/29/23 04:50 Neut # (Auto) 5.9 x10^3/uL (2.2-4.8) H 08/29/23 04:50 Lymph # (Auto) 0.2 X10^3/uL (1.3-2.9) L 08/29/23 04:50 Ross # (Auto) 0.3 x10^3/uL (0.3-0.8) 08/29/23 04:50 Eos # (Auto) 0.5 x10^3/uL (0.0-0.2) H 08/29/23 04:50 Baso # (Auto) 0.1 X10^3/uL (0.0-0.1) 08/29/23 04:50 Absolute Nucleated RBC 0.0 /100WBC 08/29/23 04:50 PT 14.1 SECONDS (11.8-14.3) 08/24/23 08:55 INR Target Range - 08/24/23 08:55 INR 1.11 (0.8-1.3) 08/24/23 08:55 APTT 27.5 SECONDS (22.9-36.5) 08/24/23 08:55 PTT Comment - 08/24/23 08:55 Fibrinogen 420 mg/dL (239-489) 08/24/23 08:55 Sample Site A-line 08/29/23 10:30 ABG pH 7.260 (7.35-7.45) L 08/29/23 10:30 ABG pCO2 68.0 mmHg (35.0-45.0) H* 08/29/23 10:30 ABG pO2 69.0 mmHg (80.0-100.0) L 08/29/23 10:30 ABG HCO3 30.5 mmol/L (22-26) H* 08/29/23 10:30 ABG O2 Saturation 91.0 % (90-100) 08/29/23 10:30 ABG Base Excess 1.8 mmol/L (-2.0-2.0) 08/29/23 10:30 Mark Test Na 08/29/23 10:30 A-a Gradient 559.0 mmHg 08/29/23 10:30 FiO2 100.0 08/29/23 10:30 Blood Gas Comments Taisha well cdn g[facility] 08/29/23 10:30 Sodium 137 mmol/L (136-145) 08/29/23 04:50 Corrected Sodium 140 mmol/L (136-145) 08/29/23 04:50 Potassium 3.9 mmol/L (3.5-5.1) 08/29/23 04:50 Chloride 100 mmol/L (98-107) 08/29/23 04:50 Carbon Dioxide 33.0 mmol/L (21-32) H 08/29/23 04:50 BUN 20 mg/dL (7-18) H 08/29/23 04:50 Creatinine 1.14 mg/dL (0.70-1.30) 08/29/23 04:50 Est GFR (MDRD) Af Amer > 60 (>60) 08/29/23 04:50 Est GFR (MDRD) Non-Af > 60 (>60) 08/29/23 04:50 Glucose 215 mg/dL (65-99) H 08/29/23 04:50 POC Glucose (mg/dL) 139 mg/dL (65-99) H 08/29/23 15:16 Lactic Acid 1.8 mmol/L (0.4-2.0) 08/29/23 02:05 Calcium 8.7 mg/dL (8.5-10.1) 08/29/23 04:50 Corrected Calcium 10.1 mg/dL (8.5-10.1) 08/29/23 04:50 Phosphorus 2.6 mg/dL (2.6-4.7) 08/29/23 04:50 Magnesium 2.7 mg/dL (2.0-2.9) 08/29/23 04:50 Total Bilirubin 0.40 mg/dL (0.2-1.0) 08/29/23 04:50 AST 48 Units/L (15-37) H 08/29/23 04:50 ALT 8 Units/L (12-78) L 08/29/23 04:50 Alkaline Phosphatase 109 Units/L (46-116) 08/29/23 04:50 Creatine Kinase 68 Units/L (39-308) 08/24/23 08:55 Troponin I High Sens 25.5 ng/L (4.0-60.0) 08/28/23 21:43 B-Natriuretic Peptide 69.6 pg/mL (0-79) 08/28/23 10:33 Total Protein 6.7 g/dL (6.4-8.2) 08/29/23 04:50 Albumin 2.2 g/dL (3.4-5.0) L 08/29/23 04:50 Globulin 4.5 g/dL (2.5-4.5) 08/29/23 04:50 Albumin/Globulin Ratio 0.5 Ratio (1.1-2.1) L 08/29/23 04:50 Prealbumin 9.6 mg/dL (18-35.7) L 08/27/23 04:35 Triglycerides 65 mg/dL (0-150) 08/29/23 04:50 Cholesterol 113 mg/dL (0-200) 08/24/23 08:55 LDL Cholesterol, Calc 43 mg/dL (0-100) 08/24/23 08:55 HDL Cholesterol 58 mg/dL (40-60) 08/24/23 08:55 Cholesterol/HDL Ratio 1.9 (0.0-5.0) 08/24/23 08:55 TSH 3rd Generation 2.444 uIU/mL (0.358-3.74) 08/28/23 10:33 Specimen Type Catherized urine 08/28/23 18:35 Urine Color Yellow (YELLOW) 08/28/23 18:35 Urine Appearance Clear (CLEAR) 08/28/23 18:35 Urine pH 6.0 (5.0 - 8.0) 08/28/23 18:35 Ur Specific [place] 1.015 (1.000-1.030) 08/28/23 18:35 Urine Protein 1+ (NEGATIVE) 08/28/23 18:35 Urine Glucose (UA) 2+ (NEGATIVE) 08/28/23 18:35 Urine Ketones Negative (NEGATIVE) 08/28/23 18:35 Urine Blood 2+ (NEGATIVE) 08/28/23 18:35 Urine Nitrite Negative (NEGATIVE) 08/28/23 18:35 Urine Bilirubin Negative (NEGATIVE) 08/28/23 18:35 Urine Urobilinogen Normal (NORMAL) 08/28/23 18:35 Ur Leukocyte Esterase Negative (NEGATIVE) 08/28/23 18:35 Urine RBC 0-2 /HPF (0-3) 08/28/23 18:35 Urine WBC None seen /HPF (0-5) 08/28/23 18:35 Ur Squamous Epith Cells Rare /HPF (NEGATIVE) 08/28/23 18:35 Amorphous Sediment 1+ /HPF (NEGATIVE) 08/28/23 18:35 Urine Bacteria Trace /HPF (NEGATIVE) 08/28/23 18:35 Coarse Granular Casts Few /HPF (NEGATIVE) 08/28/23 18:35 Urine Mucus Few /HPF (NEGATIVE) 08/28/23 18:35 Ur Culture Indicated? No/not indicated 08/28/23 18:35 Resp Viral Panel (PCR) Cancelled 08/24/23 14:07 Resp Viral Panel (PCR) See scanned report 08/24/23 14:07 Assessment and Plan 1: Respiratory failure with bilateral infiltrate and ongoing pneumonia for the past 2 weeks, positive sputum for gram-positive cocci. Patient is on respirator limiting IV fluid. 2: Ruptured diverticulitis which seem to be sealed off, patient is on IV antibiotics. 3: multiple abdominal surgeries with adhesions . Problem Patient Problems: Patient Problems Perforated diverticulum of large intestine (Acute) K57.20
[2023-08-29 16:50] LABS: ABG BASE EXCESS 3.8 mmol/L (-2.0-2.0)
[2023-08-29] MEDS: DRUG FILTER EXTENSION SET ONE (17:54)
[2023-08-29] MEDS: NS 250 ML IV 250 ML IV ONE (17:55)
[2023-08-29 19:09] LABS: ABG BASE EXCESS 3.8 mmol/L (-2.0-2.0)
[2023-08-29 19:11] LABS: ABG HCO3 32.2 mmol/L (22-26)
[2023-08-29 22:03] LABS: ABG BASE EXCESS 3.8 mmol/L (-2.0-2.0)
[2023-08-30 04:46] LABS: ABG BASE EXCESS 4.1 mmol/L (-2.0-2.0)
[2023-08-30 04:47] LABS: ABG HCO3 33.1 mmol/L (22-26)
[2023-08-30 06:29] LABS: ABG BASE EXCESS 4.7 mmol/L (-2.0-2.0)
[2023-08-30 06:44] LABS: BASOPHILS # (AUTO) 0.1 X10^3/uL (0.0-0.1); BASOPHILS % (AUTO) 0.8 % (0.2-1.0); EOSINOPHILS # (AUTO) 0.8 x10^3/uL (0.0-0.2); HEMATOCRIT 33.3 % (42.0-54.0); HEMOGLOBIN 10.7 g/dL (13.5-18.0); LYMPHOCYTES # (AUTO) 0.3 X10^3/uL (1.3-2.9); LYMPHOCYTES % (AUTO) 3.3 % (21.0-51.0); MEAN CORPUSCULAR HEMOGLOBIN 28.9 pg (27.0-34.0); MEAN CORPUSCULAR HGB CONC 32.3 g/dL (33.0-35.0); MEAN CORPUSCULAR VOLUME 89.5 fL (80.0-100.0); MEAN PLATELET VOLUME 8.3 fL (7.4-11.0); MONOCYTES # (AUTO) 0.4 x10^3/uL (0.3-0.8); MONOCYTES % (AUTO) 4.6 % (0.0-13.0); NEUTROPHILS # (AUTO) 6.1 x10^3/uL (2.2-4.8); NEUTROPHILS % (AUTO) 80.3 % (42.0-75.0); PLATELET COUNT 325 X10^3/uL (150.0-450.0); RED BLOOD COUNT 3.72 X10^6/uL (4.7-6.0); RED CELL DISTRIBUTION WIDTH 14.2 % (11.6-16.5); WHITE BLOOD COUNT 7.6 X10^3/uL (3.6-10.0)
--- NOTE | 2023-08-30 06:54 | RAD ---
EXAM:CHEST, 1 VIEWHISTORY:VENTILATOR PROTOCOL ;COMPARISON:08/29/2023FINDINGS:The cardiomediastinal silhouette is stable. Endotracheal and enteric tube unchanged. Right PICC unchanged.Similar bilateral airspace opacities. No pneumothorax or effusion.No acute osseous abnormality.IMPRESSION:Similar chest without acute change.THIS IS AN ELECTRONICALLY VERIFIED FINAL REPORT08/30/2023 6:51 AM - Electronically signed by Mikey Maurer MD
[2023-08-30 06:56] LABS: ALANINE AMINOTRANSFERASE 9 Units/L (12-78); ALBUMIN 1.8 g/dL (3.4-5.0); ALKALINE PHOSPHATASE 87 Units/L (46-116); ASPARTATE AMINO TRANSFERASE 21 Units/L (15-37); BLOOD UREA NITROGEN 24 mg/dL (7-18); CALCIUM 8.4 mg/dL (8.5-10.1); CARBON DIOXIDE 34.1 mmol/L (21-32); CHLORIDE 103 mmol/L (98-107); COR CA(FOR HYPOALB) 10.2 mg/dL (8.5-10.1); COR NA(FOR HYPERGLY) 144 mmol/L (136-145); CREATININE 1.15 mg/dL (0.70-1.30); GLUCOSE 312 mg/dL (65-99); POTASSIUM 4.4 mmol/L (3.5-5.1); SODIUM 139 mmol/L (136-145); TOTAL PROTEIN 5.5 g/dL (6.4-8.2); eGFR NON BLACK RACES > 60 (>60)
[2023-08-30] MEDS: DRUG FILTER EXTENSION SET ONE ×2 (07:56→10:21)
[2023-08-30] MEDS ORDERED: CLINIMIX 5 %/20 % 1,000 ML with MVI INJ (ADULT) 10 ML, TPN ELECTROLYTES 20 ML IV SCH (08:00)
[2023-08-30] MEDS: NEO-SYNEPHRINE INJ ONE (08:02)
[2023-08-30] MEDS: QUELICIN (OR ANECTINE) ONE (08:02)
[2023-08-30] MEDS: OFIRMEV IV 1000 MG VIAL 1,000 MG/100 ML VIAL IV ONE (08:02)
[2023-08-30] MEDS: DUONEB 0.5 MG/3 MG (3 mL) NEB ONE (08:02)
--- NOTE | 2023-08-30 08:29 | DR.PROGNOT ---
HOSPITAL PROGRESS NOTE Progress Note for Day of: Progress Note Date: 08/30/23 Chief Complaint Chief Complaint: Patient seems to be stable now, still requiring Levophed to maintain his blood pressure which is a fluctuating around 100. pCO2 is elevated, the respiratory rate will be increased. WBC 7.6, hemoglobin 10.7, BUN and creatinine are normal, 24 and 1.15 , her function tests are normal. IV fluid is limited to the TPN around 60 cc an hour in addition to the medicatio ns with their IV fluid. Chest x-ray is the same as yesterday with bilateral infiltrates. Past Medical Family Social History Past Med/Fam/Surg Hx: No changes since H&P Changes in Past Med/Fam/Surg Hx: having fluid overload. Allergies: Allergies morphine Allergy (Verified 06/05/17 16:17) lorazepam [From Ativan] Adverse Reaction (Verified 08/03/23 01:27) Review Of Systems ROS: No change since H&P Vital Signs Vital Signs: Vital Signs Temperature 100.0 F Pulse Rate [Bilateral Brachial 100 ] Pulse Rate [Bilateral Brachial 100 ] Pulse Rate [Bilateral Brachial 91 ] Pulse Rate [Bilateral Brachial 92 ] Pulse Rate [Bilateral Brachial 91 ] Pulse Rate [Bilateral Brachial 91 ] Pulse Rate 91 Pulse Rate 87 Respiratory Rate 20 Respiratory Rate 25 Respiratory Rate 25 Respiratory Rate 25 Respiratory Rate 21 Respiratory Rate 21 Respiratory Rate 22 Respiratory Rate 18 Respiratory Rate 20 Respiratory Rate 18 Respiratory Rate 18 Respiratory Rate 18 Respiratory Rate 18 Blood Pressure [Left Arm] 125/58 Blood Pressure [Left Arm] 165/71 Blood Pressure [Left Arm] 129/60 Blood Pressure [Left Arm] 127/62 Blood Pressure [Left Arm] 126/61 Blood Pressure [Left Arm] 128/62 O2 Sat by Pulse Oximetry 100 O2 Sat by Pulse Oximetry 100 O2 Sat by Pulse Oximetry 100 O2 Sat by Pulse Oximetry 100 O2 Sat by Pulse Oximetry 100 O2 Sat by Pulse Oximetry 100 O2 Sat by Pulse Oximetry 100 O2 Sat by Pulse Oximetry 100 Physical Exam Oriented: Other (Patient is on respirator and sedated) Eyes: Normal Respiratory: Rhonchi (bilateral breath sounds are positive with scattered rhonchi) Cardiovascular: Tachycardia and Other (Few irregularities with extra beats.) GI:Auscultation: Decreased GI:Palpation: Other (Soft abdomen with positive bowel sounds but hypoactive.) Mood Description: Calm Laboratory and Diagnostics 08/30/23 06:08 08/30/23 06:08 Labs: 08/28/23 21:43 Blood Blood Culture - Preliminary 08/28/23 20:40 Blood Blood Culture - Preliminary 08/29/23 10:10 Sputum - Endotracheal Wash - Final 08/27/23 18:35 Blood Blood Culture - Preliminary 08/27/23 18:27 Blood Blood Culture - Preliminary 08/24/23 14:07 Sputum - Expectorated Sputum Sputum Culture - Final 08/24/23 14:07 Sputum - Expectorated Sputum - Final Laboratory WBC 7.6 X10^3/uL (3.6-10.0) 08/30/23 06:08 RBC 3.72 X10^6/uL (4.7-6.0) L 08/30/23 06:08 Hgb 10.7 g/dL (13.5-18.0) L 08/30/23 06:08 Hct 33.3 % (42.0-54.0) L 08/30/23 06:08 MCV 89.5 fL (80.0-100.0) 08/30/23 06:08 MCH 28.9 pg (27.0-34.0) 08/30/23 06:08 MCHC 32.3 g/dL (33.0-35.0) L 08/30/23 06:08 RDW 14.2 % (11.6-16.5) 08/30/23 06:08 Plt Count 325 X10^3/uL (150.0-450.0) 08/30/23 06:08 MPV 8.3 fL (7.4-11.0) 08/30/23 06:08 Neut % (Auto) 80.3 % (42.0-75.0) H 08/30/23 06:08 Lymph % (Auto) 3.3 % (21.0-51.0) L 08/30/23 06:08 [place] % (Auto) 4.6 % (0.0-13.0) 08/30/23 06:08 Eos % (Auto) 11.0 % (0.9-2.9) H 08/30/23 06:08 Baso % (Auto) 0.8 % (0.2-1.0) 08/30/23 06:08 Neut # (Auto) 6.1 x10^3/uL (2.2-4.8) H 08/30/23 06:08 Lymph # (Auto) 0.3 X10^3/uL (1.3-2.9) L 08/30/23 06:08 [place] # (Auto) 0.4 x10^3/uL (0.3-0.8) 08/30/23 06:08 Eos # (Auto) 0.8 x10^3/uL (0.0-0.2) H 08/30/23 06:08 Baso # (Auto) 0.1 X10^3/uL (0.0-0.1) 08/30/23 06:08 Absolute Nucleated RBC 0.0 /100WBC 08/30/23 06:08 PT 14.1 SECONDS (11.8-14.3) 08/24/23 08:55 INR Target Range - 08/24/23 08:55 INR 1.11 (0.8-1.3) 08/24/23 08:55 APTT 27.5 SECONDS (22.9-36.5) 08/24/23 08:55 PTT Comment - 08/24/23 08:55 Fibrinogen 420 mg/dL (239-489) 08/24/23 08:55 Sample Site Art-line 08/30/23 06:27 ABG pH 7.300 (7.35-7.45) L 08/30/23 06:27 ABG pCO2 67.0 mmHg (35.0-45.0) H* 08/30/23 06:27 ABG pO2 132.0 mmHg (80.0-100.0) H 08/30/23 06:27 ABG HCO3 33.0 mmol/L (22-26) H* 08/30/23 06:27 ABG O2 Saturation 99.0 % (90-100) 08/30/23 06:27 ABG Base Excess 4.7 mmol/L (-2.0-2.0) H 08/30/23 06:27 Mark Test Na 08/30/23 06:27 A-a Gradient 497.0 mmHg 08/30/23 06:27 FiO2 100.0 08/30/23 06:27 Blood Gas Comments Taisha abg well-mtf 08/30/23 06:27 Sodium 139 mmol/L (136-145) 08/30/23 06:08 Corrected Sodium 144 mmol/L (136-145) 08/30/23 06:08 Potassium 4.4 mmol/L (3.5-5.1) 08/30/23 06:08 Chloride 103 mmol/L (98-107) 08/30/23 06:08 Carbon Dioxide 34.1 mmol/L (21-32) H 08/30/23 06:08 BUN 24 mg/dL (7-18) H 08/30/23 06:08 Creatinine 1.15 mg/dL (0.70-1.30) 08/30/23 06:08 Est GFR (MDRD) Af Amer > 60 (>60) 08/30/23 06:08 Est GFR (MDRD) Non-Af > 60 (>60) 08/30/23 06:08 Glucose 312 mg/dL (65-99) H 08/30/23 06:08 POC Glucose (mg/dL) 318 mg/dL (65-99) H 08/30/23 00:42 Lactic Acid 1.8 mmol/L (0.4-2.0) 08/29/23 02:05 Calcium 8.4 mg/dL (8.5-10.1) L 08/30/23 06:08 Corrected Calcium 10.2 mg/dL (8.5-10.1) H 08/30/23 06:08 Phosphorus 2.6 mg/dL (2.6-4.7) 08/29/23 04:50 Magnesium 2.7 mg/dL (2.0-2.9) 08/29/23 04:50 Total Bilirubin 0.20 mg/dL (0.2-1.0) 08/30/23 06:08 AST 21 Units/L (15-37) 08/30/23 06:08 ALT 9 Units/L (12-78) L 08/30/23 06:08 Alkaline Phosphatase 87 Units/L (46-116) 08/30/23 06:08 Creatine Kinase 68 Units/L (39-308) 08/24/23 08:55 Troponin I High Sens 25.5 ng/L (4.0-60.0) 08/28/23 21:43 B-Natriuretic Peptide 69.6 pg/mL (0-79) 08/28/23 10:33 Total Protein 5.5 g/dL (6.4-8.2) L 08/30/23 06:08 Albumin 1.8 g/dL (3.4-5.0) L 08/30/23 06:08 Globulin 3.7 g/dL (2.5-4.5) 08/30/23 06:08 Albumin/Globulin Ratio 0.5 Ratio (1.1-2.1) L 08/30/23 06:08 Prealbumin 9.6 mg/dL (18-35.7) L 08/27/23 04:35 Triglycerides 65 mg/dL (0-150) 08/29/23 04:50 Cholesterol 113 mg/dL (0-200) 08/24/23 08:55 LDL Cholesterol, Calc 43 mg/dL (0-100) 08/24/23 08:55 HDL Cholesterol 58 mg/dL (40-60) 08/24/23 08:55 Cholesterol/HDL Ratio 1.9 (0.0-5.0) 08/24/23 08:55 TSH 3rd Generation 2.444 uIU/mL (0.358-3.74) 08/28/23 10:33 Specimen Type Catherized urine 08/28/23 18:35 Urine Color Yellow (YELLOW) 08/28/23 18:35 Urine Appearance Clear (CLEAR) 08/28/23 18:35 Urine pH 6.0 (5.0 - 8.0) 08/28/23 18:35 Ur Specific [place] 1.015 (1.000-1.030) 08/28/23 18:35 Urine Protein 1+ (NEGATIVE) 08/28/23 18:35 Urine Glucose (UA) 2+ (NEGATIVE) 08/28/23 18:35 Urine Ketones Negative (NEGATIVE) 08/28/23 18:35 Urine Blood 2+ (NEGATIVE) 08/28/23 18:35 Urine Nitrite Negative (NEGATIVE) 08/28/23 18:35 Urine Bilirubin Negative (NEGATIVE) 08/28/23 18:35 Urine Urobilinogen Normal (NORMAL) 08/28/23 18:35 Ur Leukocyte Esterase Negative (NEGATIVE) 08/28/23 18:35 Urine RBC 0-2 /HPF (0-3) 08/28/23 18:35 Urine WBC None seen /HPF (0-5) 08/28/23 18:35 Ur Squamous Epith Cells Rare /HPF (NEGATIVE) 08/28/23 18:35 Amorphous Sediment 1+ /HPF (NEGATIVE) 08/28/23 18:35 Urine Bacteria Trace /HPF (NEGATIVE) 08/28/23 18:35 Coarse Granular Casts Few /HPF (NEGATIVE) 08/28/23 18:35 Urine Mucus Few /HPF (NEGATIVE) 08/28/23 18:35 Ur Culture Indicated? No/not indicated 08/28/23 18:35 Resp Viral Panel (PCR) Cancelled 08/24/23 14:07 Resp Viral Panel (PCR) See scanned report 08/24/23 14:07 Assessment and Plan 1: Respiratory failure with bilateral infiltrate and ongoing pneumonia for the past 2 weeks, positive sputum for gram-positive cocci. Patient is on respirator limiting IV fluid. DVT prophylaxis 2: Ruptured diverticulitis which seem to be sealed off, patient is on IV antibiotics. 3: multiple abdominal surgeries with adhesions . Problem Patient Problems: Patient Problems Perforated diverticulum of large intestine (Acute) K57.20
[2023-08-30] MEDS: MVI IV SCH (09:30)
[2023-08-30] MEDS: SOLU-Cortef INJ IVP SCH (09:30)
[2023-08-30] MEDS: NS 500 ML IV 500 ML IV ONE (09:30)
[2023-08-30] MEDS: TPN ELECTROLYTES IV SCH (09:30)
[2023-08-30] MEDS: [UNRECOGNIZED DRUG - OTHER] IV SCH (09:30)
[2023-08-30] MEDS: CLINIMIX IV SCH (09:30)
--- NOTE | 2023-08-30 12:48 | NOTE.SOAP ---
Soap Note Note for Day of Date of Exam: 08/30/23 Subjective Data Subjective Data: still intubated/sedated- have been able to wean down norepi from 30 to 15 with bp holding Objective Data Objective Data: I/O: positive 2liters bp 124/61 p91 RR 25 t max 100.5 labs: wbc 7.6 hct 33 bun/cr 24/1.1 alb 1.8 cxr: b airspace as before-not worsening lungs : some mild junky BS B, RRR no edema/intubated/sedated Assessment Assessment: sepsis/pna/perforated bowel/resp failure/hypotension- stable if some mild improvement Plan Plan: support- wean down norepi as bp allows
[2023-08-30] MEDS: NovoLIN R (or HumuLIN R) SC PRN (21:44)
[2023-08-31 05:02] LABS: BASOPHILS % (AUTO) 0.3 % (0.2-1.0); EOSINOPHILS % (AUTO) 0.3 % (0.9-2.9); HEMATOCRIT 27.5 % (42.0-54.0); LYMPHOCYTES # (AUTO) 0.2 X10^3/uL (1.3-2.9); LYMPHOCYTES % (AUTO) 3.5 % (21.0-51.0); MEAN CORPUSCULAR HEMOGLOBIN 29.3 pg (27.0-34.0); MEAN CORPUSCULAR HGB CONC 32.8 g/dL (33.0-35.0); MEAN CORPUSCULAR VOLUME 89.3 fL (80.0-100.0); MEAN PLATELET VOLUME 8.2 fL (7.4-11.0); MONOCYTES # (AUTO) 0.2 x10^3/uL (0.3-0.8); NEUTROPHILS # (AUTO) 4.2 x10^3/uL (2.2-4.8); NEUTROPHILS % (AUTO) 91.9 % (42.0-75.0); PLATELET COUNT 245 X10^3/uL (150.0-450.0); RED BLOOD COUNT 3.07 X10^6/uL (4.7-6.0); WHITE BLOOD COUNT 4.6 X10^3/uL (3.6-10.0)
[2023-08-31 05:06] LABS: ABG BASE EXCESS 4.6 mmol/L (-2.0-2.0)
[2023-08-31 05:07] LABS: ABG HCO3 32.2 mmol/L (22-26)
[2023-08-31 05:29] LABS: BAND NEUTROPHILS % 2 % (0-10); PLATELET MORPHOLOGY COMMENT NORMAL (NORMAL)
[2023-08-31 05:36] LABS: ALANINE AMINOTRANSFERASE 6 Units/L (12-78); ALBUMIN 1.4 g/dL (3.4-5.0); ALKALINE PHOSPHATASE 67 Units/L (46-116); ASPARTATE AMINO TRANSFERASE 12 Units/L (15-37); BLOOD UREA NITROGEN 24 mg/dL (7-18); CALCIUM 8.3 mg/dL (8.5-10.1); CARBON DIOXIDE 34.3 mmol/L (21-32); CHLORIDE 106 mmol/L (98-107); COR CA(FOR HYPOALB) 10.4 mg/dL (8.5-10.1); COR NA(FOR HYPERGLY) 146 mmol/L (136-145); CREATININE 0.87 mg/dL (0.70-1.30); GLUCOSE 285 mg/dL (65-99); POTASSIUM 4.5 mmol/L (3.5-5.1); SODIUM 142 mmol/L (136-145); TOTAL PROTEIN 4.9 g/dL (6.4-8.2); eGFR NON BLACK RACES > 60 (>60)
--- NOTE | 2023-08-31 06:21 | RAD ---
EXAM:CHEST, 1 VIEWHISTORY:VENTILATOR PROTOCOL; ALZHEIMER'S, DEMENTIA, GERD SX: APPY, CHOLECOMPARISON:08/30/2023FINDINGS:An endotracheal tube is stable with the tip just below level of the clavicular heads. Right-sided PICC line is stable. The cardiac silhouette is stable. Diffuse airspace opacity throughout the right and left hemithorax are observed consistent with atypical infectious etiologies are underlying pulmonary edema. The bony thorax is unremarkable.IMPRESSION:Stable radiograph when compared to prior examination.THIS IS AN ELECTRONICALLY VERIFIED FINAL REPORT08/31/2023 6:18 AM - Electronically signed by Jake Mariano MD
--- NOTE | 2023-08-31 08:23 | NOTE.SOAP ---
Soap Note Note for Day of Date of Exam: 08/31/23 Subjective Data Subjective Data: still intubated/sedated- on 100% oxygen/ norepi way down Objective Data Objective Data: positive 2.6 liter yesterday- up >10 liters over hospitilization- bp 90-100 p 62 labs: 7.33 co2 61 o2 163 abg hct 27 ( down from 37 2 days ago) albumin 1.4 lungs: mild junky sounds but better cxr: same b patchy infiltrates Assessment Assessment: resp arrest/pneumonia/ high CO2/ low albumin/liters up/almost off pressor/oxygenating better Plan Plan: need to increase tidal volume to ventilate better to get co2 down /improve resp acidosis- with low albumin and liters up- will third space if not already doing and cause issues- will add albumin- try to remove fluid/ wean down o2
[2023-08-31] MEDS ORDERED: ALBURX INJ 5% 25 G/500 ML VIAL IV SCH (08:24)
[2023-08-31] MEDS ORDERED: ALBUMIN HUMAN 25%- 100 ML 100 ML IV SCH (09:00)
[2023-08-31] MEDS: ALBUMIN HUMAN 25%- 100 ML 100 ML IV SCH (10:16)
[2023-08-31] MEDS: [UNRECOGNIZED DRUG - REMARK] IV SCH (10:23)
[2023-08-31] MEDS: DRUG FILTER EXTENSION SET ONE (10:54)
--- NOTE | 2023-08-31 11:59 | DR.PROGNOT ---
HOSPITAL PROGRESS NOTE Progress Note for Day of: Progress Note Date: 08/31/23 Chief Complaint Chief Complaint: Seems to be stable today with a blood pressure maintained with on the small dose of Levophed. Still intubated and sedated with moderate respiratory acidosis. Pulse rate is in the 70s. WBC 4.6 with shift to the left, hemoglobin 9, BUN 24, creatinine 0.87, electrol ytes are normal, liver function tests are normal, albumin 1.4.. Chest x-ray showed stable findings with bilateral infiltrates. Discussed with the family the situation in details. Past Medical Family Social History Past Med/Fam/Surg Hx: No changes since H&P Changes in Past Med/Fam/Surg Hx: having fluid overload. Allergies: Allergies morphine Allergy (Verified 06/05/17 16:17) lorazepam [From Ativan] Adverse Reaction (Verified 08/03/23 01:27) Review Of Systems ROS: No change since H&P Vital Signs Vital Signs: Vital Signs Temperature 97.7 F Temperature 98.5 F Pulse Rate 63 Pulse Rate 61 Pulse Rate 62 Pulse Rate 61 Pulse Rate 62 Pulse Rate 59 Pulse Rate 61 Respiratory Rate 25 Respiratory Rate 25 Respiratory Rate 25 Respiratory Rate 25 Respiratory Rate 25 Respiratory Rate 27 Respiratory Rate 25 Respiratory Rate 25 Respiratory Rate 25 Respiratory Rate 25 Respiratory Rate 25 Respiratory Rate 25 Blood Pressure 101/51 Blood Pressure 106/53 Blood Pressure 96/50 Blood Pressure 99/50 Blood Pressure 89/49 Blood Pressure 98/51 O2 Sat by Pulse Oximetry 100 O2 Sat by Pulse Oximetry 100 O2 Sat by Pulse Oximetry 100 O2 Sat by Pulse Oximetry 100 O2 Sat by Pulse Oximetry 100 O2 Sat by Pulse Oximetry 100 O2 Sat by Pulse Oximetry 100 Physical Exam Oriented: Other (Patient is on respirator and sedated) Eyes: Normal Respiratory: Rhonchi (bilateral breath sounds are positive with scattered rhonchi) Cardiovascular: Tachycardia and Other (Few irregularities with extra beats.) GI:Auscultation: Decreased GI:Palpation: Other (Soft abdomen with positive bowel sounds but hypoactive.) GI: Tenderness: Other (full abdomen , moderate to severe tenderness RLQ and mid abdomen ) Speech Pattern: Artificially Ventilated Laboratory and Diagnostics 08/31/23 04:03 08/31/23 04:03 Labs: 08/29/23 10:10 Sputum - Endotracheal Wash Sputum Culture - Final 08/29/23 10:10 Sputum - Endotracheal Wash - Final 08/28/23 21:43 Blood Blood Culture - Preliminary 08/28/23 20:40 Blood Blood Culture - Preliminary 08/27/23 18:35 Blood Blood Culture - Preliminary 08/27/23 18:27 Blood Blood Culture - Preliminary 08/24/23 14:07 Sputum - Expectorated Sputum Sputum Culture - Final 08/24/23 14:07 Sputum - Expectorated Sputum - Final Laboratory WBC 4.6 X10^3/uL (3.6-10.0) 08/31/23 04:03 RBC 3.07 X10^6/uL (4.7-6.0) L 08/31/23 04:03 Hgb 9.0 g/dL (13.5-18.0) L 08/31/23 04:03 Hct 27.5 % (42.0-54.0) L 08/31/23 04:03 MCV 89.3 fL (80.0-100.0) 08/31/23 04:03 MCH 29.3 pg (27.0-34.0) 08/31/23 04:03 MCHC 32.8 g/dL (33.0-35.0) L 08/31/23 04:03 RDW 14.0 % (11.6-16.5) 08/31/23 04:03 Plt Count 245 X10^3/uL (150.0-450.0) 08/31/23 04:03 Plt Count Comment Adequate (ADEQUATE) 08/31/23 04:03 MPV 8.2 fL (7.4-11.0) 08/31/23 04:03 Neut % (Auto) 91.9 % (42.0-75.0) H 08/31/23 04:03 Lymph % (Auto) 3.5 % (21.0-51.0) L 08/31/23 04:03 [place] % (Auto) 4.0 % (0.0-13.0) 08/31/23 04:03 Eos % (Auto) 0.3 % (0.9-2.9) L 08/31/23 04:03 Baso % (Auto) 0.3 % (0.2-1.0) 08/31/23 04:03 Neut # (Auto) 4.2 x10^3/uL (2.2-4.8) 08/31/23 04:03 Lymph # (Auto) 0.2 X10^3/uL (1.3-2.9) L 08/31/23 04:03 [place] # (Auto) 0.2 x10^3/uL (0.3-0.8) L 08/31/23 04:03 Eos # (Auto) 0.0 x10^3/uL (0.0-0.2) 08/31/23 04:03 Baso # (Auto) 0.0 X10^3/uL (0.0-0.1) 08/31/23 04:03 Absolute Nucleated RBC 0.2 /100WBC 08/31/23 04:03 Total Counted 100 08/31/23 04:03 Neutrophils % (Manual) 92 % (39-76) H 08/31/23 04:03 Band Neutrophils % 2 % (0-10) 08/31/23 04:03 Lymphocytes % (Manual) 3 % (13-43) L 08/31/23 04:03 Monocytes % (Manual) 2 % (4-9) L 08/31/23 04:03 Eosinophils % (Manual) 1 % (0-6) 08/31/23 04:03 Plt Morphology Comment Normal (NORMAL) 08/31/23 04:03 RBC Morphology Normal (NORMAL) 08/31/23 04:03 PT 14.1 SECONDS (11.8-14.3) 08/24/23 08:55 INR Target Range - 08/24/23 08:55 INR 1.11 (0.8-1.3) 08/24/23 08:55 APTT 27.5 SECONDS (22.9-36.5) 08/24/23 08:55 PTT Comment - 08/24/23 08:55 Fibrinogen 420 mg/dL (239-489) 08/24/23 08:55 Sample Site Art-line 08/31/23 05:00 ABG pH 7.330 (7.35-7.45) L 08/31/23 05:00 ABG pCO2 61.0 mmHg (35.0-45.0) H* 08/31/23 05:00 ABG pO2 163.0 mmHg (80.0-100.0) H 08/31/23 05:00 ABG HCO3 32.2 mmol/L (22-26) H* 08/31/23 05:00 ABG O2 Saturation 99.0 % (90-100) 08/31/23 05:00 ABG Base Excess 4.6 mmol/L (-2.0-2.0) H 08/31/23 05:00 Mark Test Na 08/31/23 05:00 A-a Gradient 474.0 mmHg 08/31/23 05:00 FiO2 100.0 08/31/23 05:00 Blood Gas Comments Taisha well-mtf 08/31/23 05:00 Sodium 142 mmol/L (136-145) 08/31/23 04:03 Corrected Sodium 146 mmol/L (136-145) H 08/31/23 04:03 Potassium 4.5 mmol/L (3.5-5.1) 08/31/23 04:03 Chloride 106 mmol/L (98-107) 08/31/23 04:03 Carbon Dioxide 34.3 mmol/L (21-32) H 08/31/23 04:03 BUN 24 mg/dL (7-18) H 08/31/23 04:03 Creatinine 0.87 mg/dL (0.70-1.30) 08/31/23 04:03 Est GFR (MDRD) Af Amer > 60 (>60) 08/31/23 04:03 Est GFR (MDRD) Non-Af > 60 (>60) 08/31/23 04:03 Glucose 285 mg/dL (65-99) H 08/31/23 04:03 POC Glucose (mg/dL) 275 mg/dL (65-99) H 08/31/23 06:15 Lactic Acid 1.8 mmol/L (0.4-2.0) 08/29/23 02:05 Calcium 8.3 mg/dL (8.5-10.1) L 08/31/23 04:03 Corrected Calcium 10.4 mg/dL (8.5-10.1) H 08/31/23 04:03 Phosphorus 2.6 mg/dL (2.6-4.7) 08/29/23 04:50 Magnesium 2.7 mg/dL (2.0-2.9) 08/29/23 04:50 Total Bilirubin 0.10 mg/dL (0.2-1.0) L 08/31/23 04:03 AST 12 Units/L (15-37) L 08/31/23 04:03 ALT 6 Units/L (12-78) L 08/31/23 04:03 Alkaline Phosphatase 67 Units/L (46-116) 08/31/23 04:03 Creatine Kinase 68 Units/L (39-308) 08/24/23 08:55 Troponin I High Sens 25.5 ng/L (4.0-60.0) 08/28/23 21:43 B-Natriuretic Peptide 69.6 pg/mL (0-79) 08/28/23 10:33 Total Protein 4.9 g/dL (6.4-8.2) L 08/31/23 04:03 Albumin 1.4 g/dL (3.4-5.0) L 08/31/23 04:03 Globulin 3.5 g/dL (2.5-4.5) 08/31/23 04:03 Albumin/Globulin Ratio 0.4 Ratio (1.1-2.1) L 08/31/23 04:03 Prealbumin 9.6 mg/dL (18-35.7) L 08/27/23 04:35 Triglycerides 65 mg/dL (0-150) 08/29/23 04:50 Cholesterol 113 mg/dL (0-200) 08/24/23 08:55 LDL Cholesterol, Calc 43 mg/dL (0-100) 08/24/23 08:55 HDL Cholesterol 58 mg/dL (40-60) 08/24/23 08:55 Cholesterol/HDL Ratio 1.9 (0.0-5.0) 08/24/23 08:55 TSH 3rd Generation 2.444 uIU/mL (0.358-3.74) 08/28/23 10:33 Specimen Type Catherized urine 08/28/23 18:35 Urine Color Yellow (YELLOW) 08/28/23 18:35 Urine Appearance Clear (CLEAR) 08/28/23 18:35 Urine pH 6.0 (5.0 - 8.0) 08/28/23 18:35 Ur Specific [place] 1.015 (1.000-1.030) 08/28/23 18:35 Urine Protein 1+ (NEGATIVE) 08/28/23 18:35 Urine Glucose (UA) 2+ (NEGATIVE) 08/28/23 18:35 Urine Ketones Negative (NEGATIVE) 08/28/23 18:35 Urine Blood 2+ (NEGATIVE) 08/28/23 18:35 Urine Nitrite Negative (NEGATIVE) 08/28/23 18:35 Urine Bilirubin Negative (NEGATIVE) 08/28/23 18:35 Urine Urobilinogen Normal (NORMAL) 08/28/23 18:35 Ur Leukocyte Esterase Negative (NEGATIVE) 08/28/23 18:35 Urine RBC 0-2 /HPF (0-3) 08/28/23 18:35 Urine WBC None seen /HPF (0-5) 08/28/23 18:35 Ur Squamous Epith Cells Rare /HPF (NEGATIVE) 08/28/23 18:35 Amorphous Sediment 1+ /HPF (NEGATIVE) 08/28/23 18:35 Urine Bacteria Trace /HPF (NEGATIVE) 08/28/23 18:35 Coarse Granular Casts Few /HPF (NEGATIVE) 08/28/23 18:35 Urine Mucus Few /HPF (NEGATIVE) 08/28/23 18:35 Ur Culture Indicated? No/not indicated 08/28/23 18:35 Resp Viral Panel (PCR) Cancelled 08/24/23 14:07 Resp Viral Panel (PCR) See scanned report 08/24/23 14:07 Assessment and Plan 1: Respiratory failure with bilateral infiltrate and ongoing pneumonia for the past 2 weeks, positive sputum for gram-positive cocci. Patient is on respirator limiting IV fluid. DVT prophylaxis 2: Ruptured diverticulitis which seem to be sealed off, patient is on IV an tibiotics. 3: multiple abdominal surgeries with adhesions . Problem Patient Problems: Patient Problems (Updated 08/28/23 @ 09:16 by TONY CERDA) Perforated diverticulum of large intestine (Acute) K57.20
[2023-08-31 12:08] LABS: ABG BASE EXCESS 6.2 mmol/L (-2.0-2.0)
[2023-08-31 12:09] LABS: ABG HCO3 33.3 mmol/L (22-26)
[2023-09-01] MEDS: DRUG FILTER EXTENSION SET ONE (01:07)
[2023-09-01 04:18] LABS: ABG BASE EXCESS 7.6 mmol/L (-2.0-2.0); ABG HCO3 33.2 mmol/L (22-26)
[2023-09-01 05:36] LABS: BASOPHILS % (AUTO) 0.2 % (0.2-1.0); EOSINOPHILS % (AUTO) 0.2 % (0.9-2.9); HEMATOCRIT 24.7 % (42.0-54.0); HEMOGLOBIN 8.1 g/dL (13.5-18.0); LYMPHOCYTES # (AUTO) 0.2 X10^3/uL (1.3-2.9); LYMPHOCYTES % (AUTO) 4.2 % (21.0-51.0); MEAN CORPUSCULAR HEMOGLOBIN 29.2 pg (27.0-34.0); MEAN CORPUSCULAR HGB CONC 32.8 g/dL (33.0-35.0); MEAN CORPUSCULAR VOLUME 89.2 fL (80.0-100.0); MEAN PLATELET VOLUME 8.4 fL (7.4-11.0); MONOCYTES # (AUTO) 0.2 x10^3/uL (0.3-0.8); MONOCYTES % (AUTO) 4.1 % (0.0-13.0); NEUTROPHILS # (AUTO) 5.4 x10^3/uL (2.2-4.8); NEUTROPHILS % (AUTO) 91.3 % (42.0-75.0); PLATELET COUNT 294 X10^3/uL (150.0-450.0); RED BLOOD COUNT 2.77 X10^6/uL (4.7-6.0); RED CELL DISTRIBUTION WIDTH 13.8 % (11.6-16.5); WHITE BLOOD COUNT 5.9 X10^3/uL (3.6-10.0)
[2023-09-01 05:46] LABS: BLOOD UREA NITROGEN 31 mg/dL (7-18); CALCIUM 8.3 mg/dL (8.5-10.1); CARBON DIOXIDE 32.6 mmol/L (21-32); CHLORIDE 106 mmol/L (98-107); COR NA(FOR HYPERGLY) 146 mmol/L (136-145); CREATININE 0.84 mg/dL (0.70-1.30); GLUCOSE 264 mg/dL (65-99); POTASSIUM 4.4 mmol/L (3.5-5.1); SODIUM 142 mmol/L (136-145); eGFR NON BLACK RACES > 60 (>60)
[2023-09-01 05:54] LABS: MAGNESIUM 2.1 mg/dL (2.0-2.9)
[2023-09-01 05:55] LABS: BAND NEUTROPHILS % 1 % (0-10); PLATELET MORPHOLOGY COMMENT NORMAL (NORMAL)
--- NOTE | 2023-09-01 08:20 | RAD ---
EXAM:Portable AP chestHISTORY:PneumoniaCOMPARISON: 024FINDINGS:Heart size remains within normal limits. There is no change in extent or distribution of bilateral pulmonary infiltrates. Support lines are stable as well, ETT tip in midtrachea. Right PICC terminates at the cavoatrial junction.IMPRESSION:No significant change. Bilateral pulmonary infiltrates consistent with pneumonia/edema.THIS IS AN ELECTRONICALLY VERIFIED FINAL REPORT09/01/2023 8:15 AM - Electronically signed by Vincent Olivares MD
[2023-09-01] MEDS: DIFLUCAN 200 MG IV PREMIX* 200 MG/100 ML BAG IV SCH (10:00)
[2023-09-01] MEDS: NS 100 ML IV 100 ML with VENOFER 100 MG IV ONE (11:03)
[2023-09-01] MEDS ORDERED: [UNRECOGNIZED DRUG - REMARK] IV SCH (17:00)
[2023-09-01] MEDS: NS 1,000 ML IV 1,000 ML IV SCH (23:05)
[2023-09-02 05:09] LABS: BASOPHILS % (AUTO) 0.3 % (0.2-1.0); EOSINOPHILS % (AUTO) 0.2 % (0.9-2.9); HEMATOCRIT 24.6 % (42.0-54.0); HEMOGLOBIN 8.2 g/dL (13.5-18.0); LYMPHOCYTES # (AUTO) 0.3 X10^3/uL (1.3-2.9); LYMPHOCYTES % (AUTO) 3.1 % (21.0-51.0); MEAN CORPUSCULAR HEMOGLOBIN 29.5 pg (27.0-34.0); MEAN CORPUSCULAR HGB CONC 33.4 g/dL (33.0-35.0); MEAN CORPUSCULAR VOLUME 88.2 fL (80.0-100.0); MONOCYTES # (AUTO) 0.4 x10^3/uL (0.3-0.8); MONOCYTES % (AUTO) 5.1 % (0.0-13.0); NEUTROPHILS % (AUTO) 91.3 % (42.0-75.0); PLATELET COUNT 320 X10^3/uL (150.0-450.0); RED BLOOD COUNT 2.79 X10^6/uL (4.7-6.0); RED CELL DISTRIBUTION WIDTH 14.1 % (11.6-16.5); WHITE BLOOD COUNT 8.7 X10^3/uL (3.6-10.0)
[2023-09-02 05:11] LABS: PREALBUMIN 14.8 mg/dL (18-35.7)
[2023-09-02 05:12] LABS: ALANINE AMINOTRANSFERASE 10 Units/L (12-78); ALBUMIN 2.5 g/dL (3.4-5.0); ALKALINE PHOSPHATASE 64 Units/L (46-116); ASPARTATE AMINO TRANSFERASE 15 Units/L (15-37); BLOOD UREA NITROGEN 29 mg/dL (7-18); CALCIUM 8.2 mg/dL (8.5-10.1); CARBON DIOXIDE 34.3 mmol/L (21-32); CHLORIDE 108 mmol/L (98-107); COR CA(FOR HYPOALB) 9.4 mg/dL (8.5-10.1); COR NA(FOR HYPERGLY) 149 mmol/L (136-145); CREATININE 0.82 mg/dL (0.70-1.30); GLUCOSE 214 mg/dL (65-99); SODIUM 146 mmol/L (136-145); TOTAL PROTEIN 5.2 g/dL (6.4-8.2); eGFR NON BLACK RACES > 60 (>60)
[2023-09-02 05:25] LABS: ABG BASE EXCESS 8.9 mmol/L (-2.0-2.0)
[2023-09-02 05:26] LABS: ABG HCO3 34.6 mmol/L (22-26)
[2023-09-02 06:06] LABS: BAND NEUTROPHILS % 4 % (0-10); METAMYELOCYTES % 2; PLATELET MORPHOLOGY COMMENT NORMAL (NORMAL)
[2023-09-02] MEDS: LASIX IVP ONE (10:42)
[2023-09-02] MEDS: LR 1,000 ML IV 1,000 ML IV SCH (12:16)
[2023-09-03] MEDS: NS 500 ML IV 500 ML IV ONE (00:31)
[2023-09-03 05:04] LABS: BASOPHILS % (AUTO) 0.2 % (0.2-1.0); EOSINOPHILS % (AUTO) 0.4 % (0.9-2.9); HEMATOCRIT 25.2 % (42.0-54.0); HEMOGLOBIN 8.4 g/dL (13.5-18.0); LYMPHOCYTES # (AUTO) 0.3 X10^3/uL (1.3-2.9); LYMPHOCYTES % (AUTO) 3.4 % (21.0-51.0); MEAN CORPUSCULAR HEMOGLOBIN 29.6 pg (27.0-34.0); MEAN CORPUSCULAR HGB CONC 33.3 g/dL (33.0-35.0); MEAN PLATELET VOLUME 8.1 fL (7.4-11.0); MONOCYTES # (AUTO) 0.3 x10^3/uL (0.3-0.8); MONOCYTES % (AUTO) 3.3 % (0.0-13.0); NEUTROPHILS # (AUTO) 9.3 x10^3/uL (2.2-4.8); NEUTROPHILS % (AUTO) 92.7 % (42.0-75.0); PLATELET COUNT 339 X10^3/uL (150.0-450.0); RED BLOOD COUNT 2.83 X10^6/uL (4.7-6.0); RED CELL DISTRIBUTION WIDTH 14.6 % (11.6-16.5); WHITE BLOOD COUNT 10.1 X10^3/uL (3.6-10.0)
[2023-09-03 05:12] LABS: PLATELET MORPHOLOGY COMMENT NORMAL (NORMAL)
[2023-09-03 05:17] LABS: ALANINE AMINOTRANSFERASE 9 Units/L (12-78); ALBUMIN 2.8 g/dL (3.4-5.0); ALKALINE PHOSPHATASE 75 Units/L (46-116); ASPARTATE AMINO TRANSFERASE 19 Units/L (15-37); BLOOD UREA NITROGEN 27 mg/dL (7-18); CALCIUM 8.2 mg/dL (8.5-10.1); CARBON DIOXIDE 36.7 mmol/L (21-32); CHLORIDE 109 mmol/L (98-107); COR CA(FOR HYPOALB) 9.2 mg/dL (8.5-10.1); COR NA(FOR HYPERGLY) 152 mmol/L (136-145); CREATININE 0.67 mg/dL (0.70-1.30); GLUCOSE 214 mg/dL (65-99); MAGNESIUM 2.2 mg/dL (2.0-2.9); POTASSIUM 3.5 mmol/L (3.5-5.1); SODIUM 149 mmol/L (136-145); TOTAL PROTEIN 5.4 g/dL (6.4-8.2); eGFR NON BLACK RACES > 60 (>60)
--- NOTE | 2023-09-03 06:21 | EKG ---
Test Reason : ARRHYTHMIA Blood Pressure : */* mmHG Vent. Rate : 87 BPM Atrial Rate : 87 BPM P-R Int : 170 ms QRS Dur : 82 ms QT Int : 352 ms P-R-T Axes : 24 17 -3 degrees QTc Int : 423 ms Sinus rhythm with premature atrial complexes Otherwise normal ECG When compared with ECG of 28-AUG-2023 07:27, premature atrial complexes are now present Confirmed by Vance Chambers MD ([id number]) on 09/03/2023 7:35:18 AM Referred By: Confirmed By: Vance Chambers MD
[2023-09-03 07:40] LABS: ABG HCO3 36.8 mmol/L (22-26)
--- NOTE | 2023-09-03 08:25 | NOTE.SOAP ---
Soap Note Note for Day of Date of Exam: 09/03/23 Subjective Data Subjective Data: intubated/sedated- off pressors- O2 requirements went up today- wbc up today/tmax 99- tube feeds started Objective Data Objective Data: intubated/sedated junky B Bs edema: minimal in legsbp 135/82 p 85 labs: wbc 10k, hct 25 na 149 cr0.67 alb 2.8 ekg today: nsr pacs 08/31 cxr: B infiltrates/pna Assessment Assessment: ruptured diverticuli/resp failure Plan Plan: think this will be a long process to get off ventilator- consider transfer to tertiary care center with intensivists
[2023-09-03] MEDS ORDERED: PROCRIT or EPOGEN VIAL 20,000 UNITS SC SCH (09:23)
[2023-09-03] MEDS: LASIX IVP SCH ×2 (10:06→18:48)
[2023-09-03] MEDS: NS 1/2 1,000 ML IV 1,000 ML IV SCH (10:29)
[2023-09-03] MEDS: VSL#3 PROBIOTIC CAP 112.5 B PO SCH (10:29)
[2023-09-03] MEDS: LASIX IVP STA (10:29)
[2023-09-03] MEDS: CORTEF PO SCH ×2 (10:29→11:51)
[2023-09-03] MEDS: NS 1/2 1,000 ML IV 1,000 ML IV ONE (11:16)
[2023-09-03] MEDS: CORTEF ONE ×2 (11:16→12:14)
--- NOTE | 2023-09-03 11:46 | RAD ---
EXAM:CHEST, 1 VIEWHISTORY:vent/chf;COMPARISON:09/03/19 24TECHNIQUE:Three views obtainedFINDINGS:Decubitus views were obtained. Films are underpenetrated and of limited diagnostic sensitivity. No obvious free-flowing pleural fluid is seen. There is cardiomegaly with diffuse bilateral infiltrates. No pneumothorax. Support lines and catheters are unchanged. No new infiltrate or other change noted.IMPRESSION:Limited study. No obvious free flowing pleural effusions noted. Underpenetrated study.No change in bilateral infiltrates follow-up recommendedTHIS IS AN ELECTRONICALLY VERIFIED FINAL REPORT09/03/2023 11:43 AM - Electronically signed by Valdo Reyes MD
--- NOTE | 2023-09-03 11:57 | DR.PROGNOT ---
HOSPITAL PROGRESS NOTE Progress Note for Day of: Progress Note Date: 09/03/23 Chief Complaint Chief Complaint: Seems to be stable today with a blood pressure maintained without medications. Still intubated and sedated with O2 sat 96, PaO2 50, pCO2 53, bicarb 36. Pulse rate is in the 70s. WBC 10.1..with shift to the left, hemoglobin 8.4, BUN 27, creatinine 0.6, electrolytes are normal, liver function tests are normal, albumin 2.8.. Chest x-ray showed stable findings with bilateral infiltrates. Discussed with the family the situation in details. Past Medical Family Social History Past Med/Fam/Surg Hx: No changes since H&P Changes in Past Med/Fam/Surg Hx: having fluid overload. Allergies: Allergies morphine Allergy (Verified 06/05/17 16:17) lorazepam [From Ativan] Adverse Reaction (Verified 08/03/23 01:27) Review Of Systems ROS: No change since H&P Vital Signs Vital Signs: Vital Signs Pulse Rate 91 Pulse Rate 85 Pulse Rate 84 Pulse Rate 92 Pulse Rate 81 Respiratory Rate 28 Respiratory Rate 27 Respiratory Rate 29 Respiratory Rate 28 Respiratory Rate 25 Respiratory Rate 28 Respiratory Rate 42 Respiratory Rate 34 Respiratory Rate 29 Respiratory Rate 30 Respiratory Rate 24 Respiratory Rate 24 Blood Pressure 135/62 Blood Pressure 133/63 Blood Pressure 133/61 O2 Sat by Pulse Oximetry 96 O2 Sat by Pulse Oximetry 97 O2 Sat by Pulse Oximetry 98 O2 Sat by Pulse Oximetry 92 O2 Sat by Pulse Oximetry 94 Physical Exam Oriented: Other (Patient is on respirator and sedated) Eyes: Normal Respiratory: Rhonchi (bilateral breath sounds are positive with scattered rhonchi) Cardiovascular: Tachycardia and Other (Few irregularities with extra beats.) GI:Auscultation: Decreased GI:Palpation: Other (Soft abdomen with positive bowel sounds but hypoactive.) GI: Tenderness: Other (full abdomen, soft, bowel sounds are present.) Mood Description: Calm Speech Pattern: Artificially Ventilated Laboratory and Diagnostics 09/03/23 04:20 09/03/23 04:20 Labs: 08/28/23 21:43 Blood Blood Culture - Final 08/28/23 20:40 Blood Blood Culture - Final 08/27/23 18:35 Blood Blood Culture - Final 08/27/23 18:27 Blood Blood Culture - Final 08/29/23 10:10 Sputum - Endotracheal Wash Sputum Culture - Final 08/29/23 10:10 Sputum - Endotracheal Wash - Final 08/24/23 14:07 Sputum - Expectorated Sputum Sputum Culture - Final 08/24/23 14:07 Sputum - Expectorated Sputum - Final Laboratory WBC 10.1 X10^3/uL (3.6-10.0) H 09/03/23 04:20 RBC 2.83 X10^6/uL (4.7-6.0) L 09/03/23 04:20 Hgb 8.4 g/dL (13.5-18.0) L 09/03/23 04:20 Hct 25.2 % (42.0-54.0) L 09/03/23 04:20 MCV 89.0 fL (80.0-100.0) 09/03/23 04:20 MCH 29.6 pg (27.0-34.0) 09/03/23 04:20 MCHC 33.3 g/dL (33.0-35.0) 09/03/23 04:20 RDW 14.6 % (11.6-16.5) 09/03/23 04:20 Plt Count 339 X10^3/uL (150.0-450.0) 09/03/23 04:20 Plt Count Comment Adequate (ADEQUATE) 09/03/23 04:20 MPV 8.1 fL (7.4-11.0) 09/03/23 04:20 Neut % (Auto) 92.7 % (42.0-75.0) H 09/03/23 04:20 Lymph % (Auto) 3.4 % (21.0-51.0) L 09/03/23 04:20 [place] % (Auto) 3.3 % (0.0-13.0) 09/03/23 04:20 Eos % (Auto) 0.4 % (0.9-2.9) L 09/03/23 04:20 Baso % (Auto) 0.2 % (0.2-1.0) 09/03/23 04:20 Neut # (Auto) 9.3 x10^3/uL (2.2-4.8) H 09/03/23 04:20 Lymph # (Auto) 0.3 X10^3/uL (1.3-2.9) L 09/03/23 04:20 [place] # (Auto) 0.3 x10^3/uL (0.3-0.8) 09/03/23 04:20 Eos # (Auto) 0.0 x10^3/uL (0.0-0.2) 09/03/23 04:20 Baso # (Auto) 0.0 X10^3/uL (0.0-0.1) 09/03/23 04:20 Absolute Nucleated RBC 0.2 /100WBC 09/03/23 04:20 Total Counted 100 09/03/23 04:20 Neutrophils % (Manual) 94 % (39-76) H 09/03/23 04:20 Band Neutrophils % 4 % (0-10) 09/02/23 04:26 Lymphocytes % (Manual) 5 % (13-43) L 09/03/23 04:20 Monocytes % (Manual) 1 % (4-9) L 09/03/23 04:20 Eosinophils % (Manual) 1 % (0-6) 08/31/23 04:03 Metamyelocytes % 2 09/02/23 04:26 Plt Morphology Comment Normal (NORMAL) 09/03/23 04:20 RBC Morphology Normal (NORMAL) 09/03/23 04:20 PT 14.1 SECONDS (11.8-14.3) 08/24/23 08:55 INR Target Range - 08/24/23 08:55 INR 1.11 (0.8-1.3) 08/24/23 08:55 APTT 27.5 SECONDS (22.9-36.5) 08/24/23 08:55 PTT Comment - 08/24/23 08:55 Fibrinogen 420 mg/dL (239-489) 08/24/23 08:55 Sample Site [place] 09/03/23 07:29 ABG pH 7.450 (7.35-7.45) 09/03/23 07:29 ABG pCO2 53.0 mmHg (35.0-45.0) H* 09/03/23 07:29 ABG pO2 50.0 mmHg (80.0-100.0) L 09/03/23 07:29 ABG HCO3 36.8 mmol/L (22-26) H* 09/03/23 07:29 ABG O2 Saturation 87.0 % (90-100) L 09/03/23 07:29 ABG Base Excess 11.0 mmol/L (-2.0-2.0) H 09/03/23 07:29 Mark Test N/a 09/03/23 07:29 A-a Gradient 347.0 mmHg 09/03/23 07:29 FiO2 65.0 09/03/23 07:29 Blood Gas Comments Pt john well elj 09/03/23 07:29 Sodium 149 mmol/L (136-145) H 09/03/23 04:20 Corrected Sodium 152 mmol/L (136-145) H 09/03/23 04:20 Potassium 3.5 mmol/L (3.5-5.1) 09/03/23 04:20 Chloride 109 mmol/L (98-107) H 09/03/23 04:20 Carbon Dioxide 36.7 mmol/L (21-32) H 09/03/23 04:20 BUN 27 mg/dL (7-18) H 09/03/23 04:20 Creatinine 0.67 mg/dL (0.70-1.30) L 09/03/23 04:20 Est GFR (MDRD) Af Amer > 60 (>60) 09/03/23 04:20 Est GFR (MDRD) Non-Af > 60 (>60) 09/03/23 04:20 Glucose 214 mg/dL (65-99) H 09/03/23 04:20 POC Glucose (mg/dL) 210 mg/dL (65-99) H 09/03/23 05:06 Lactic Acid 1.8 mmol/L (0.4-2.0) 08/29/23 02:05 Calcium 8.2 mg/dL (8.5-10.1) L 09/03/23 04:20 Corrected Calcium 9.2 mg/dL (8.5-10.1) 09/03/23 04:20 Phosphorus 2.0 mg/dL (2.6-4.7) L 09/01/23 04:30 Magnesium 2.2 mg/dL (2.0-2.9) 09/03/23 04:20 Total Bilirubin 0.30 mg/dL (0.2-1.0) 09/03/23 04:20 AST 19 Units/L (15-37) 09/03/23 04:20 ALT 9 Units/L (12-78) L 09/03/23 04:20 Alkaline Phosphatase 75 Units/L (46-116) 09/03/23 04:20 Creatine Kinase 68 Units/L (39-308) 08/24/23 08:55 Troponin I High Sens 25.5 ng/L (4.0-60.0) 08/28/23 21:43 B-Natriuretic Peptide 69.6 pg/mL (0-79) 08/28/23 10:33 Total Protein 5.4 g/dL (6.4-8.2) L 09/03/23 04:20 Albumin 2.8 g/dL (3.4-5.0) L 09/03/23 04:20 Globulin 2.6 g/dL (2.5-4.5) 09/03/23 04:20 Albumin/Globulin Ratio 1.1 Ratio (1.1-2.1) 09/03/23 04:20 Prealbumin 14.8 mg/dL (18-35.7) L 09/02/23 04:26 Triglycerides 202 mg/dL (0-150) H 09/01/23 04:30 Cholesterol 113 mg/dL (0-200) 08/24/23 08:55 LDL Cholesterol, Calc 43 mg/dL (0-100) 08/24/23 08:55 HDL Cholesterol 58 mg/dL (40-60) 08/24/23 08:55 Cholesterol/HDL Ratio 1.9 (0.0-5.0) 08/24/23 08:55 TSH 3rd Generation 2.444 uIU/mL (0.358-3.74) 08/28/23 10:33 Specimen Type Catherized urine 08/28/23 18:35 Urine Color Yellow (YELLOW) 08/28/23 18:35 Urine Appearance Clear (CLEAR) 08/28/23 18:35 Urine pH 6.0 (5.0 - 8.0) 08/28/23 18:35 Ur Specific [place] 1.015 (1.000-1.030) 08/28/23 18:35 Urine Protein 1+ (NEGATIVE) 08/28/23 18:35 Urine Glucose (UA) 2+ (NEGATIVE) 08/28/23 18:35 Urine Ketones Negative (NEGATIVE) 06/04/24 18:35 Urine Blood 2+ (NEGATIVE) 08/28/23 18:35 Urine Nitrite Negative (NEGATIVE) 08/28/23 18:35 Urine Bilirubin Negative (NEGATIVE) 08/28/23 18:35 Urine Urobilinogen Normal (NORMAL) 08/28/23 18:35 Ur Leukocyte Esterase Negative (NEGATIVE) 08/28/23 18:35 Urine RBC 0-2 /HPF (0-3) 08/28/23 18:35 Urine WBC None seen /HPF (0-5) 08/28/23 18:35 Ur Squamous Epith Cells Rare /HPF (NEGATIVE) 08/28/23 18:35 Amorphous Sediment 1+ /HPF (NEGATIVE) 08/28/23 18:35 Urine Bacteria Trace /HPF (NEGATIVE) 08/28/23 18:35 Coarse Granular Casts Few /HPF (NEGATIVE) 08/28/23 18:35 Urine Mucus Few /HPF (NEGATIVE) 08/28/23 18:35 Ur Culture Indicated? No/not indicated 08/28/23 18:35 Resp Viral Panel (PCR) See scanned report 08/31/23 10:00 Assessment and Plan 1: Respiratory failure with bilateral infiltrate and ongoing pneumonia for the past 2 weeks, positive sputum for gram-positive cocci. Patient is on respirator limiting IV fluid. DVT prophylaxis. Dr. Benitez is managing that.. 2: Ruptured diverticulitis which seem to be sealed off, patient is on IV antibiotics. 3: multiple abdominal surgeries with adhesions . Problem Patient Problems: Patient Problems Perforated diverticulum of large intestine (Acute) K57.20
--- NOTE | 2023-09-03 12:08 | RAD ---
EXAM: CHEST, 1 VIEW HISTORY: VENT; COMPARISON: No relevant prior studies were available for comparison at the time of interpretation. TECHNIQUE: CHEST, 1 VIEW FINDINGS: Chest: Lines and tubes: Endotracheal tube is seen with its tip above the [place]. Transesophageal enteric tub e is seen with its tip below the diaphragm. Cardiac leads overlie the chest. Mediastinum: Cardiac and mediastinal shadow is obscured. Pulmonary vessels: Pulmonary vasculature is obscured. Lung hannon: Near-total opacification in both lung hannon. Pleura: No effusion. No pneumothorax. Bones and soft tissues: No acute osseous or soft tissue abnormality. IMPRESSION: 1. Severe pneumonia 2. Support apparatus as described THIS IS AN ELECTRONICALLY VERIFIED FINAL REPORT 09/03/2023 12:05 PM - Electronically signed by oKdy Jose MD
--- NOTE | 2023-09-03 12:25 | RAD ---
EXAM:KUBHISTORY:no bowel movement since 08/23;COMPARISON:08/27/2023TECHNIQUE:Two viewsFINDINGS:There is a nasogastric tube in place with tip along the body of the stomach. There is improvement in bowel gas pattern compared with the prior study with less distended loops. There is a nonobstructive bowel gas pattern. No free air, dilated loops or significant air-fluid levels are noted. No abnormal calcifications in the distribution of the kidneys or ureters. Degenerative changes in the spine.IMPRESSION:Improvement in bowel gas pattern compared with the prior study with less distended loops.No free air or air-fluid levels. Probable stool within the right and left colon.THIS IS AN ELECTRONICALLY VERIFIED FINAL REPORT09/03/2023 12:22 PM - Electronically signed by Valdo Reyes MD
[2023-09-03] MEDS: NovoLIN R (or HumuLIN R) SUBCUT PRN (12:49)
[2023-09-03 15:00] LABS: ABG BASE EXCESS 12.9 mmol/L (-2.0-2.0); ABG HCO3 38.6 mmol/L (22-26)
--- NOTE | 2023-09-03 16:02 | RAD ---
EXAM:CHEST, LATERAL DECUBITUSHISTORY:vent, diverticulitis with free air;COMPARISON:Chest x-ray 09/03/2023 x5 11 a.m.TECHNIQUE:Three views of the chest bilateral decubitus positionsFINDINGS:Details are limited by patient body habitus/portable film technique. Diffuse alveolar infiltrates throughout both lungs. Pleural fluid collections are not definitively demonstrated. Cardiac silhouette enlargement with pulmonary vascular congestion. Right-sided central venous access catheter along the SVC/right pulmonary hilum. Nasogastric tube in the upper abdomen. Bones are unchanged.IMPRESSION:Extensive diffuse pulmonary infiltrates in both lungs with cardiac silhouette enlargement. Pleural fluid collections are not definitively demonstrated on this exam which is limited by patient body habitus, film technique. Consider follow-up CT of the thorax if this is of continued clinical concern.THIS IS AN ELECTRONICALLY VERIFIED FINAL REPORT09/03/2023 3:58 PM - Electronically signed by Alley Quintero MD
[2023-09-03 18:09] LABS: ABG BASE EXCESS 13.9 mmol/L (-2.0-2.0); ABG HCO3 40.3 mmol/L (22-26)
[2023-09-03] MEDS: TYGACIL 50 MG VIAL 100 MG in NS 100 ML IV 100 ML IV ONE (18:49)
[2023-09-03] MEDS ORDERED: PHARMACY CONSULT - VANCOMYCIN XX SCH (19:00)
[2023-09-03 19:07] LABS: BLOOD UREA NITROGEN 28 mg/dL (7-18); CALCIUM 8.3 mg/dL (8.5-10.1); CARBON DIOXIDE 38.6 mmol/L (21-32); CHLORIDE 107 mmol/L (98-107); COR NA(FOR HYPERGLY) 149 mmol/L (136-145); GLUCOSE 156 mg/dL (65-99); SODIUM 148 mmol/L (136-145); eGFR NON BLACK RACES > 60 (>60)
[2023-09-03 19:16] LABS: POTASSIUM 2.8 mmol/L (3.5-5.1)
[2023-09-03] MEDS ORDERED: CONSULT PHARMACY - POTASSIUM & MAGNESIUM XX SCH (20:00)
[2023-09-03] MEDS ORDERED: CORTEF ONE (20:08)
[2023-09-03] MEDS ORDERED: NS 1/2 1,000 ML IV 1,000 ML IV ONE (20:08)
[2023-09-03] MEDS: VANCOMYCIN IV *PREMIX 1 G/200 ML BAG 1 G/200 ML PIGGYBACK IV SCH (20:18)
[2023-09-03] MEDS ORDERED: K-DUR TAB 20 MEQ PO SCH (23:00)
[2023-09-03] MEDS: K-RIDER 10 MEQ/100 ML WATER 10 MEQ/100 ML BAG IV SCH (23:12)
[2023-09-03] MEDS: OFIRMEV IV 1000 MG VIAL 1,000 MG/100 ML VIAL IV PRN (23:52)
[2023-09-04 04:54] LABS: BASOPHILS % (AUTO) 0.3 % (0.2-1.0); EOSINOPHILS # (AUTO) 0.4 x10^3/uL (0.0-0.2); EOSINOPHILS % (AUTO) 2.5 % (0.9-2.9); HEMATOCRIT 29.5 % (42.0-54.0); HEMOGLOBIN 9.5 g/dL (13.5-18.0); LYMPHOCYTES # (AUTO) 0.5 X10^3/uL (1.3-2.9); MEAN CORPUSCULAR HEMOGLOBIN 28.7 pg (27.0-34.0); MEAN CORPUSCULAR HGB CONC 32.1 g/dL (33.0-35.0); MEAN CORPUSCULAR VOLUME 89.4 fL (80.0-100.0); MONOCYTES # (AUTO) 0.4 x10^3/uL (0.3-0.8); MONOCYTES % (AUTO) 2.7 % (0.0-13.0); NEUTROPHILS # (AUTO) 14.5 x10^3/uL (2.2-4.8); NEUTROPHILS % (AUTO) 91.5 % (42.0-75.0); PLATELET COUNT 376 X10^3/uL (150.0-450.0); RED BLOOD COUNT 3.31 X10^6/uL (4.7-6.0); RED CELL DISTRIBUTION WIDTH 14.6 % (11.6-16.5); WHITE BLOOD COUNT 15.8 X10^3/uL (3.6-10.0)
[2023-09-04 05:07] LABS: ALANINE AMINOTRANSFERASE 11 Units/L (12-78); ALBUMIN 3.2 g/dL (3.4-5.0); ALKALINE PHOSPHATASE 95 Units/L (46-116); ASPARTATE AMINO TRANSFERASE 27 Units/L (15-37); BLOOD UREA NITROGEN 28 mg/dL (7-18); CALCIUM 8.1 mg/dL (8.5-10.1); CARBON DIOXIDE 38.4 mmol/L (21-32); CHLORIDE 103 mmol/L (98-107); COR CA(FOR HYPOALB) 8.7 mg/dL (8.5-10.1); COR NA(FOR HYPERGLY) 147 mmol/L (136-145); CREATININE 0.77 mg/dL (0.70-1.30); GLUCOSE 177 mg/dL (65-99); POTASSIUM 3.4 mmol/L (3.5-5.1); SODIUM 145 mmol/L (136-145); TOTAL PROTEIN 5.8 g/dL (6.4-8.2); eGFR NON BLACK RACES > 60 (>60)
[2023-09-04] MEDS: LASIX IVP ONE (05:12)
[2023-09-04 05:25] LABS: PLATELET MORPHOLOGY COMMENT NORMAL (NORMAL)
[2023-09-04 05:37] LABS: ABG BASE EXCESS 8.4 mmol/L (-2.0-2.0)
[2023-09-04] MEDS ORDERED: CONSULT PHARMACY - POTASSIUM & MAGNESIUM XX SCH (07:00)
--- NOTE | 2023-09-04 07:38 | RAD ---
EXAM:CHEST, 1 VIEWHISTORY:PNEUMONIA ; ALZH, DEMENTIA, GERD, ARTHRITIS SX: APPY, CHOLECOMPARISON:Chest x-ray 09/03/2023TECHNIQUE:Single portable AP view chestFINDINGS:Extensive alveolar infiltrates scattered throughout both lungs as previously seen. Tip of the endotracheal tube 1.5 cm above the level of the camille. Nasogastric tube partially imaged in the left upper abdomen. Right subclavian line along the SVC/right inferior pulmonary hilum. Moderate cardiac silhouette enlargement. Pulmonary vascular pattern is not well defined. Bones are unchanged. Fusion hardware cervical spine.IMPRESSION:Persistent dense infiltrates scattered throughout both lungs with cardiac silhouette enlargement.THIS IS AN ELECTRONICALLY VERIFIED FINAL REPORT09/04/2023 7:31 AM - Electronically signed by Alley Quintero MD
[2023-09-04] MEDS ORDERED: CORTEF ONE (08:26)
[2023-09-04] MEDS: TYGACIL 50 MG VIAL 50 MG in NS 100 ML IV 100 ML IV SCH (08:55)
[2023-09-04] MEDS: NS 250 ML IV 250 ML IV ONE ×2 (08:56→14:25)
[2023-09-04] MEDS: K-DUR TAB 20 MEQ PO SCH (08:58)
--- NOTE | 2023-09-04 09:22 | DR.PROGNOT ---
HOSPITAL PROGRESS NOTE Progress Note for Day of: Progress Note Date: 09/04/23 Chief Complaint Chief Complaint: Had temperature up to 101 last night with elevated white count. Still overriding the respirator. Tolerating tube feeding with a small dose. WBC is 15.8 with shift to the left, hemoglobin 9.5. Liver function test are normal, lactic acid is pending Making good urine output with normal BUN and creatinine. Albumin 3.2, potassium 3.4 Past Medical Family Social History Past Med/Fam/Surg Hx: No changes since H&P Changes in Past Med/Fam/Surg Hx: having fluid overload. Allergies: Allergies morphine Allergy (Verified 06/05/17 16:17) lorazepam [From Ativan] Adverse Reaction (Verified 08/03/23 01:27) Review Of Systems ROS: No change since H&P Vital Signs Vital Signs: Vital Signs Temperature 99.4 F Temperature 100.2 F Temperature 101.0 F Pulse Rate 93 Pulse Rate 94 Pulse Rate 93 Pulse Rate 96 Pulse Rate 97 Respiratory Rate 32 Respiratory Rate 32 Respiratory Rate 31 Respiratory Rate 25 Respiratory Rate 36 Respiratory Rate 34 Respiratory Rate 29 Respiratory Rate 34 Respiratory Rate 34 Respiratory Rate 27 Respiratory Rate 26 Respiratory Rate 23 Respiratory Rate 23 Respiratory Rate 31 Blood Pressure 150/70 Blood Pressure 153/71 Blood Pressure 159/74 Blood Pressure 171/77 Blood Pressure 169/74 O2 Sat by Pulse Oximetry 97 O2 Sat by Pulse Oximetry 94 O2 Sat by Pulse Oximetry 96 O2 Sat by Pulse Oximetry 97 O2 Sat by Pulse Oximetry 95 Physical Exam Oriented: Other (Patient is on respirator and sedated) Eyes: Normal Respiratory: Rhonchi (bilateral breath sounds are positive with scattered rhonchi) Cardiovascular: Normal and Tachycardia GI:Auscultation: Decreased GI:Palpation: Other (Soft abdomen with positive bowel sounds but hypoactive.) GI: Tenderness: Other (full abdomen, soft, bowel sounds are present.) Mood Description: Calm Speech Pattern: Artificially Ventilated Laboratory and Diagnostics 09/04/23 04:13 09/04/23 04:13 Labs: 09/03/23 13:18 Sputum - Endotracheal Wash - Final 08/28/23 21:43 Blood Blood Culture - Final 08/28/23 20:40 Blood Blood Culture - Final 08/27/23 18:35 Blood Blood Culture - Final 08/27/23 18:27 Blood Blood Culture - Final 08/29/23 10:10 Sputum - Endotracheal Wash Sputum Culture - Final 08/29/23 10:10 Sputum - Endotracheal Wash - Final 08/24/23 14:07 Sputum - Expectorated Sputum Sputum Culture - Final 08/24/23 14:07 Sputum - Expectorated Sputum - Final Laboratory WBC 15.8 X10^3/uL (3.6-10.0) H 09/04/23 04:13 RBC 3.31 X10^6/uL (4.7-6.0) L 09/04/23 04:13 Hgb 9.5 g/dL (13.5-18.0) L 09/04/23 04:13 Hct 29.5 % (42.0-54.0) L 09/04/23 04:13 MCV 89.4 fL (80.0-100.0) 09/04/23 04:13 MCH 28.7 pg (27.0-34.0) 09/04/23 04:13 MCHC 32.1 g/dL (33.0-35.0) L 09/04/23 04:13 RDW 14.6 % (11.6-16.5) 09/04/23 04:13 Plt Count 376 X10^3/uL (150.0-450.0) 09/04/23 04:13 Plt Count Comment Adequate (ADEQUATE) 09/04/23 04:13 MPV 8.0 fL (7.4-11.0) 09/04/23 04:13 Neut % (Auto) 91.5 % (42.0-75.0) H 09/04/23 04:13 Lymph % (Auto) 3.0 % (21.0-51.0) L 09/04/23 04:13 [place] % (Auto) 2.7 % (0.0-13.0) 09/04/23 04:13 Eos % (Auto) 2.5 % (0.9-2.9) 09/04/23 04:13 Baso % (Auto) 0.3 % (0.2-1.0) 09/04/23 04:13 Neut # (Auto) 14.5 x10^3/uL (2.2-4.8) H 09/04/23 04:13 Lymph # (Auto) 0.5 X10^3/uL (1.3-2.9) L 09/04/23 04:13 [place] # (Auto) 0.4 x10^3/uL (0.3-0.8) 09/04/23 04:13 Eos # (Auto) 0.4 x10^3/uL (0.0-0.2) H 09/04/23 04:13 Baso # (Auto) 0.0 X10^3/uL (0.0-0.1) 09/04/23 04:13 Absolute Nucleated RBC 0.1 /100WBC 09/04/23 04:13 Total Counted 100 09/04/23 04:13 Neutrophils % (Manual) 95 % (39-76) H 09/04/23 04:13 Band Neutrophils % 4 % (0-10) 09/02/23 04:26 Lymphocytes % (Manual) 1 % (13-43) L 09/04/23 04:13 Monocytes % (Manual) 1 % (4-9) L 09/03/23 04:20 Eosinophils % (Manual) 4 % (0-6) 09/04/23 04:13 Metamyelocytes % 2 09/02/23 04:26 Plt Morphology Comment Normal (NORMAL) 09/04/23 04:13 RBC Morphology Normal (NORMAL) 09/04/23 04:13 PT 14.1 SECONDS (11.8-14.3) 08/24/23 08:55 INR Target Range - 08/24/23 08:55 INR 1.11 (0.8-1.3) 08/24/23 08:55 APTT 27.5 SECONDS (22.9-36.5) 08/24/23 08:55 PTT Comment - 08/24/23 08:55 Fibrinogen 420 mg/dL (239-489) 08/24/23 08:55 Sample Site [place] 09/04/23 05:37 ABG pH 7.440 (7.35-7.45) 09/04/23 05:37 ABG pCO2 50.0 mmHg (35.0-45.0) H 09/04/23 05:37 ABG pO2 57.0 mmHg (80.0-100.0) L 09/04/23 05:37 ABG HCO3 34.0 mmol/L (22-26) H* 09/04/23 05:37 ABG O2 Saturation 90.0 % (90-100) 09/04/23 05:37 ABG Base Excess 8.4 mmol/L (-2.0-2.0) H 09/04/23 05:37 Mark Test Na 09/04/23 05:37 A-a Gradient 487.0 mmHg 09/04/23 05:37 FiO2 85.0 09/04/23 05:37 Blood Gas Comments Taisha well-mtf 09/04/23 05:37 Sodium 145 mmol/L (136-145) 09/04/23 04:13 Corrected Sodium 147 mmol/L (136-145) H 09/04/23 04:13 Potassium 3.4 mmol/L (3.5-5.1) L 09/04/23 04:13 Chloride 103 mmol/L (98-107) 09/04/23 04:13 Carbon Dioxide 38.4 mmol/L (21-32) H 09/04/23 04:13 BUN 28 mg/dL (7-18) H 09/04/23 04:13 Creatinine 0.77 mg/dL (0.70-1.30) 09/04/23 04:13 Est GFR (MDRD) Af Amer > 60 (>60) 09/04/23 04:13 Est GFR (MDRD) Non-Af > 60 (>60) 09/04/23 04:13 Glucose 177 mg/dL (65-99) H 09/04/23 04:13 POC Glucose (mg/dL) 165 mg/dL (65-99) H 09/04/23 05:14 Lactic Acid 1.8 mmol/L (0.4-2.0) 08/29/23 02:05 Calcium 8.1 mg/dL (8.5-10.1) L 09/04/23 04:13 Corrected Calcium 8.7 mg/dL (8.5-10.1) 09/04/23 04:13 Phosphorus 2.0 mg/dL (2.6-4.7) L 09/01/23 04:30 Magnesium 2.2 mg/dL (2.0-2.9) 09/03/23 04:20 Total Bilirubin 0.60 mg/dL (0.2-1.0) 09/04/23 04:13 AST 27 Units/L (15-37) 09/04/23 04:13 ALT 11 Units/L (12-78) L 09/04/23 04:13 Alkaline Phosphatase 95 Units/L (46-116) 09/04/23 04:13 Creatine Kinase 68 Units/L (39-308) 08/24/23 08:55 Troponin I High Sens 25.5 ng/L (4.0-60.0) 08/28/23 21:43 B-Natriuretic Peptide 69.6 pg/mL (0-79) 08/28/23 10:33 Total Protein 5.8 g/dL (6.4-8.2) L 09/04/23 04:13 Albumin 3.2 g/dL (3.4-5.0) L 09/04/23 04:13 Globulin 2.6 g/dL (2.5-4.5) 09/04/23 04:13 Albumin/Globulin Ratio 1.2 Ratio (1.1-2.1) 09/04/23 04:13 Prealbumin 14.8 mg/dL (18-35.7) L 09/02/23 04:26 Triglycerides 202 mg/dL (0-150) H 09/01/23 04:30 Cholesterol 113 mg/dL (0-200) 08/24/23 08:55 LDL Cholesterol, Calc 43 mg/dL (0-100) 08/24/23 08:55 HDL Cholesterol 58 mg/dL (40-60) 08/24/23 08:55 Cholesterol/HDL Ratio 1.9 (0.0-5.0) 08/24/23 08:55 TSH 3rd Generation 2.444 uIU/mL (0.358-3.74) 08/28/23 10:33 Specimen Type Catherized urine 08/28/23 18:35 Urine Color Yellow (YELLOW) 08/28/23 18:35 Urine Appearance Clear (CLEAR) 08/28/23 18:35 Urine pH 6.0 (5.0 - 8.0) 08/28/23 18:35 Ur Specific [place] 1.015 (1.000-1.030) 08/28/23 18:35 Urine Protein 1+ (NEGATIVE) 08/28/23 18:35 Urine Glucose (UA) 2+ (NEGATIVE) 08/28/23 18:35 Urine Ketones Negative (NEGATIVE) 08/28/23 18:35 Urine Blood 2+ (NEGATIVE) 08/28/23 18:35 Urine Nitrite Negative (NEGATIVE) 08/28/23 18:35 Urine Bilirubin Negative (NEGATIVE) 08/28/23 18:35 Urine Urobilinogen Normal (NORMAL) 08/28/23 18:35 Ur Leukocyte Esterase Negative (NEGATIVE) 08/28/23 18:35 Urine RBC 0-2 /HPF (0-3) 08/28/23 18:35 Urine WBC None seen /HPF (0-5) 08/28/23 18:35 Ur Squamous Epith Cells Rare /HPF (NEGATIVE) 08/28/23 18:35 Amorphous Sediment 1+ /HPF (NEGATIVE) 08/28/23 18:35 Urine Bacteria Trace /HPF (NEGATIVE) 08/28/23 18:35 Coarse Granular Casts Few /HPF (NEGATIVE) 08/28/23 18:35 Urine Mucus Few /HPF (NEGATIVE) 08/28/23 18:35 Ur Culture Indicated? No/not indicated 08/28/23 18:35 Resp Viral Panel (PCR) See scanned report 08/31/23 10:00 Blood Type O POSITIVE 09/03/23 23:10 Antibody Screen Negative 09/03/23 23:10 Crossmatch See Detail 09/03/23 23:10 Assessment and Plan 1: Respiratory failure with bilateral infiltrate and ongoing pneumonia for the past 2 weeks, positive sputum for gram-positive cocci. Patient is on respirator limiting IV fluid. DVT prophylaxis. Restarted on IV antibiotics Dr. Benitez is managing that.. Discussed with family the patient's condition and prognosis. They want to keep the patient at [facility]. 2: Ruptured diverticulitis which seem to be sealed off, patient is on IV antibiotics. 3: multiple abdominal surgeries with adhesions . Problem Patient Problems: Patient Problems (Updated 08/28/23 @ 09:16 by TONY CERDA) Perforated diverticulum of large intestine (Acute) K57.20
[2023-09-04] MEDS ORDERED: NS 1/2 1,000 ML IV 1,000 ML IV ONE (09:53)
[2023-09-04] MEDS ORDERED: ERAXIS IV SCH (10:00)
[2023-09-04] MEDS ORDERED: SOLU-Cortef INJ IVP SCH (10:00)
[2023-09-04] MEDS: THIAMINE HCL INJ IVP SCH (10:11)
[2023-09-04] MEDS: CYTOTEC NG SCH (10:12)
[2023-09-04] MEDS: ERAXIS 200 MG in NS 250 ML IV 200 ML IV ONE (11:19)
[2023-09-04] MEDS: SOLU-Cortef INJ IVP SCH (11:56)
[2023-09-04] MEDS: VANCOMYCIN IV *PREMIX 1.25 G/250 ML BAG 1.25 G/250 ML PIGGYBACK IV SCH (11:57)
--- NOTE | 2023-09-04 15:10 | RAD ---
EXAMINATION:KUBHISTORY:check placment OG tube;COMPARISON STUDY:None.TECHNIQUE:2 supine AP views of the abdomen and pelvisFINDINGS:Distal portion of the OG tube seen in the left mid lateral abdomen.Mild amount of feces. Surgical clips in the right and left upper abdomen.Spondylosis. Lower bony pelvis was not imaged.IMPRESSION:Distal portion of the OG tube is seen in the lateral left mid abdomen.THIS IS AN ELECTRONICALLY VERIFIED FINAL REPORT09/04/2023 3:07 PM - Electronically signed by Alley Quintero MD
[2023-09-04 16:06] VITALS: TEMP 98.4
[2023-09-04 16:10] VITALS: BP 155/70; PULSE 95; RESP 21; O2SAT 98
[2023-09-05] MEDS ORDERED: ERAXIS 100 MG in NS 100 ML IV 100 ML IV SCH (09:00)
[2023-09-05] MEDS ORDERED: PHARMACY COMMENT IV NR (20:00)
[2023-09-06] MEDS ORDERED: PHARMACY COMMENT IV SCH (19:30)
== END 2023-09-04 17:02 | disposition short-term general hospital (02) | DRG 391 ==
LOC: ICU 08:28 → ER 08:28 → MED/SURG 08:28 → ICU 13:15 → MED/SURG 08-25 15:32 → ICU 08-28 08:32
PROVIDERS: ADMIT Surgery; ATTEND Surgery
DX: I25.10 Atherosclerotic heart disease of native coronary artery without angina pectoris; R41.82 Altered mental status, unspecified; R06.02 Shortness of breath; R00.0 Tachycardia, unspecified; R46.4 Slowness and poor responsiveness; K57.20 Diverticulitis of large intestine with perforation and abscess without bleeding; R26.89 Other abnormalities of gait and mobility; E78.2 Mixed hyperlipidemia; K66.0 Peritoneal adhesions (postprocedural) (postinfection); Z90.49 Acquired absence of other specified parts of digestive tract; E83.42 Hypomagnesemia; R10.84 Generalized abdominal pain; I11.0 Hypertensive heart disease with heart failure; Z79.01 Long term (current) use of anticoagulants; K21.9 Gastro-esophageal reflux disease without esophagitis; E87.6 Hypokalemia; J18.8 Other pneumonia, unspecified organism; I50.9 Heart failure, unspecified; J96.01 Acute respiratory failure with hypoxia